=== PATIENT | male | born 1950 | race Caucasian/White ===

== ENCOUNTER 2016-09-08 11:27 | Emergency (ER) | payer MEDICARE, MEDICAID ==
[~2016-09-08] VITALS: Ht 172.7 cm; Wt 53.6 kg
[~2016-09-08 11:27] MED LIST: ADLT ASA LOW81 MG PO; ALBUTEROL S2.5 MG/.5 IN; ALDACTONE25 MG PO; AMOXICILLIN500 MG PO; ATORVASTATIN CA40 MG PO; BACTRIM DS1 TAB PO; CARVEDILOL3.125 MG PO; CEPHALEXIN500 MG PO; DICLOFENAC OR; DOXYCYCL HYC100 MG PO; KLOR-CON M2020 MEQ PO; LASIX 40 MG40 MG/TAB PO; LASIX20 MG PO; LEVOTHYROXIN50 MCG PO; LIPITOR10 M1 PO; LIPITOR40 M1 PO; LISINOPRIL10 MG OR; LISINOPRIL20 M1 PO; LOPRESSOR 550 MG/TAB PO; LORTAB 5-325 MG1 TAB PO; LOSARTAN POT100 MG PO; MICRO-K8 MEQ PO; MULTI VIT PO; NAPROSYN500 MG OR; NAPROSYN500 MG PO; NITROSTAT0.4 MG SL; NO; NO MEDS; SYMBICORT 80-4.5MCG IN; SYMBICORT1 AE1 IN; Symbicort IN; TAMSULOSIN HCL0.4 MG PO; TESSALON PER100 MG PO; ULTRAM50 MG OR; ULTRAM50 MG PO; VENTOLIN HFA IN; ZESTRIL10 M1 PO; ZESTRIL5 M1 PO; ZITHROMAX250 MG PO; ZITHROMAX500 MG PO
[2016-09-08] MEDS ORDERED: AUGMENTIN500TAB PO (14:26)
[2016-09-08 14:42] VITALS: BP 118/70
== END 2016-09-08 14:43 | disposition home or self-care (01) ==
LOC: ED 11:27
DX: S91.351A Open bite, right foot, initial encounter (principal); I11.0 Hypertensive heart disease with heart failure; I50.9 Heart failure, unspecified; I25.10 Atherosclerotic heart disease of native coronary artery without angina pectoris; E03.9 Hypothyroidism, unspecified; I42.9 Cardiomyopathy, unspecified; F17.210 Nicotine dependence, cigarettes, uncomplicated; Z95.5 Presence of coronary angioplasty implant and graft; E78.5 Hyperlipidemia, unspecified; W54.0XXA Bitten by dog, initial encounter; Y93.55 Activity, bike riding

== ENCOUNTER 2017-03-06 09:33 | Emergency (ER) | payer MEDICARE, MEDICAID ==
[~2017-03-06] VITALS: Ht 172.7 cm; Wt 65.0 kg
[~2017-03-06 09:33] MED LIST changes: +AUGMENTIN500TAB PO; +FINASTERIDE5 MG PO
[2017-03-06] MEDS ORDERED: EC-NAPROSYN500 MG PO (09:54)
[2017-03-06] MEDS ORDERED: TRAMADOL HYDROC50 MG PO (09:54)
[2017-03-06] MEDS ORDERED: LOSARTAN POT25 MG PO (10:15)
[2017-03-06] MEDS ORDERED: LASIX 20 MG TAB20 MG PO (10:15)
[2017-03-06] MEDS ORDERED: ATORVASTATIN CA40 MG PO (10:16)
[2017-03-06] MEDS ORDERED: COREG25 MG PO (10:17)
[2017-03-06] MEDS ORDERED: ADLT ASA LOW81 MG PO (10:18)
[2017-03-06 11:15] VITALS: BP 106/66
== END 2017-03-06 11:15 | disposition home or self-care (01) ==
LOC: ED 09:33
DX: M54.32 Sciatica, left side (principal); M79.605 Pain in left leg; M25.552 Pain in left hip; X50.1XXA Overexertion from prolonged static or awkward postures, initial encounter; Y93.89 Activity, other specified; Y92.238 Other place in hospital as the place of occurrence of the external cause

== ENCOUNTER 2017-04-19 15:36 | Emergency (ER) | payer MEDICARE, MEDICAID ==
[~2017-04-19] VITALS: Ht 172.7 cm; Wt 50.0 kg
[~2017-04-19 15:36] MED LIST changes: +COREG25 MG PO; +EC-NAPROSYN500 MG PO; +LASIX 20 MG TAB20 MG PO; +LOSARTAN POT25 MG PO; +TRAMADOL HYDROC50 MG PO
[2017-04-19] MEDS ORDERED: TAMSULOSIN0.4 MG PO (18:03)
[2017-04-19 18:12] LABS: HEMATOCRIT 40.1 % (39.0-50.0); HEMOGLOBIN 13.7 g/dl (14.0-18.0); IMMATURE GRANULOCYTES 0.3 % (0.0-1.0); MEAN CELL VOLUME 95.7 fL CALC (80.0-100.0); MEAN CORPUSCULAR HGB 32.7 pG CALC (26.0-32.0); MEAN CORPUSCULAR HGB CONC 34.2 g/L CALC (32.0-36.0); NEUT# 4.4 thou/uL (1.82-7.42); RED BLOOD COUNT 4.19 mill/uL (4.70-6.10); RED CELL DISTRI WIDTH 12.9 % (11.5-15.5)
[2017-04-19 18:47] LABS: ANION GAP 19 (6-22 (CALC)); BUN 27 mg/dL (8-23); BUN/CREATININE RATIO 23 (12-20 (CALC)); CALCIUM 10.8 mg/dL (8.4-10.2); CARBON DIOXIDE 23 mmol/l (22-30); CHLORIDE 106 mmol/l (95-108); CREATININE 1.2 mg/dL (0.7-1.3); GFR 60 ML/MIN (>=60 (CALC)); GFR FOR AFR.AMER. > 60 ML/MIN (>=60 (CALC)); GLUCOSE 79 mg/dL (82-115); POTASSIUM 4.6 mmol/l (3.5-5.1); SODIUM 143 mmol/l (137-146)
[2017-04-19 21:45] VITALS: BP 114/70
== END 2017-04-19 21:50 | disposition short-term general hospital (02) ==
LOC: ED 15:36
PROVIDERS: Family Medicine
DX: R93.5 Abnormal findings on diagnostic imaging of other abdominal regions, including retroperitoneum (principal); S30.1XXA Contusion of abdominal wall, initial encounter; S40.011A Contusion of right shoulder, initial encounter; S50.11XA Contusion of right forearm, initial encounter; S70.01XA Contusion of right hip, initial encounter; S40.211A Abrasion of right shoulder, initial encounter; S50.811A Abrasion of right forearm, initial encounter; D69.6 Thrombocytopenia, unspecified; V13.4XXA Pedal cycle driver injured in collision with car, pick-up truck or van in traffic accident, initial encounter; Y92.414 Local residential or business street as the place of occurrence of the external cause; Y93.55 Activity, bike riding
CPT/HCPCS: Q9967

== ENCOUNTER 2017-08-22 13:49 | Observation (INO) | payer MEDICARE, MEDICAID ==
[~2017-08-22] VITALS: Ht 172.7 cm; Wt 54.6 kg
[~2017-08-22 13:49] MED LIST changes: +TAMSULOSIN0.4 MG PO
[2017-08-22 14:40] LABS: HEMATOCRIT 36.9 % (39.0-50.0); IMMATURE GRANULOCYTES 0.3 % (0.0-1.0); MEAN CELL VOLUME 98.9 fL CALC (80.0-100.0); MEAN CORPUSCULAR HGB 32.2 pG CALC (26.0-32.0); MEAN CORPUSCULAR HGB CONC 32.5 g/L CALC (32.0-36.0); NEUT# 4.24 thou/uL (1.82-7.42); RED BLOOD COUNT 3.73 mill/uL (4.70-6.10); RED CELL DISTRI WIDTH 13.6 % (11.5-15.5)
[2017-08-22 14:56] LABS: ALBUMIN 3.7 g/dL (3.2-5.0); ALKALINE PHOSPHATASE 113 u/l (38-126); ANION GAP 17 (6-22 (CALC)); BILIRUBIN, TOTAL 1.1 mg/dL (0.0-1.4); BUN 22 mg/dL (8-23); BUN/CREATININE RATIO 23 (12-20 (CALC)); CARBON DIOXIDE 26 mmol/l (22-30); CHLORIDE 106 mmol/l (95-108); GFR > 60 ML/MIN (>=60 (CALC)); GFR FOR AFR.AMER. > 60 ML/MIN (>=60 (CALC)); SGOT/AST 20 u/l (19-48); SGPT/ALT 47 u/l (11-66); SODIUM 144 mmol/l (137-146); TOTAL PROTEIN 6.6 g/dL (6.3-8.2)
[2017-08-22 16:40] LABS: URINE BILIRUBIN - DIPSTICK NEGATIVE (NEGATIVE); URINE BLOOD DIPSTICK TRACE-LYSED (NEGATIVE); URINE COLOR YELLOW; URINE GLUCOSE - DIPSTICK NEGATIVE (NEGATIVE); URINE KETONE NEGATIVE (NEGATIVE); URINE LEUK ESTERASE TRACE (NEGATIVE); URINE PROTEIN - DIPSTICK NEGATIVE (NEG-TRACE); URINE UROBILINOGEN - DIPSTICK 0.2 E.U./dL (0.2)
[2017-08-22 16:41] LABS: URINE CLARITY HAZY; URINE NITRITE - DIPSTICK POSITIVE (Negative)
[2017-08-22 16:50] LABS: URINE BACTERIA RARE hpf; URINE RBC 0-2 RBC/hpf (0-5)
[2017-08-22 18:19] VITALS: BP 124/89
[2017-08-22 22:00] VITALS: BP 121/75
[2017-08-23 06:15] LABS: HEMATOCRIT 36.5 % (39.0-50.0); IMMATURE GRANULOCYTES 0.2 % (0.0-1.0); MEAN CELL VOLUME 97.9 fL CALC (80.0-100.0); MEAN CORPUSCULAR HGB 32.2 pG CALC (26.0-32.0); MEAN CORPUSCULAR HGB CONC 32.9 g/L CALC (32.0-36.0); NEUT# 3.74 thou/uL (1.82-7.42); RED BLOOD COUNT 3.73 mill/uL (4.70-6.10); RED CELL DISTRI WIDTH 13.4 % (11.5-15.5)
[2017-08-23 06:21] LABS: ANION GAP 15 (6-22 (CALC)); BUN 21 mg/dL (8-23); BUN/CREATININE RATIO 23 (12-20 (CALC)); CARBON DIOXIDE 27 mmol/l (22-30); CHLORIDE 104 mmol/l (95-108); CREATININE 0.9 mg/dL (0.7-1.3); GFR > 60 ML/MIN (>=60 (CALC)); GFR FOR AFR.AMER. > 60 ML/MIN (>=60 (CALC)); MAGNESIUM 1.8 mg/dL (1.6-2.3); POTASSIUM 3.7 mmol/l (3.5-5.1); SODIUM 142 mmol/l (137-146)
[2017-08-23 07:10] VITALS: BP 128/78
[2017-08-23 11:42] VITALS: BP 108/62
[2017-08-23 18:08] VITALS: BP 114/66
[2017-08-23 19:35] VITALS: BP 115/64
[2017-08-24 00:35] VITALS: BP 120/62
[2017-08-24 04:35] VITALS: BP 107/73
[2017-08-24 06:21] LABS: HEMATOCRIT 37.1 % (39.0-50.0); HEMOGLOBIN 12.4 g/dl (14.0-18.0); IMMATURE GRANULOCYTES 0.4 % (0.0-1.0); MEAN CELL VOLUME 98.1 fL CALC (80.0-100.0); MEAN CORPUSCULAR HGB 32.8 pG CALC (26.0-32.0); MEAN CORPUSCULAR HGB CONC 33.4 g/L CALC (32.0-36.0); NEUT# 4.77 thou/uL (1.82-7.42); RED BLOOD COUNT 3.78 mill/uL (4.70-6.10); RED CELL DISTRI WIDTH 13.7 % (11.5-15.5)
[2017-08-24 06:44] LABS: ANION GAP 17 (6-22 (CALC)); BUN 25 mg/dL (8-23); BUN/CREATININE RATIO 26 (12-20 (CALC)); CARBON DIOXIDE 27 mmol/l (22-30); CHLORIDE 103 mmol/l (95-108); GFR > 60 ML/MIN (>=60 (CALC)); GFR FOR AFR.AMER. > 60 ML/MIN (>=60 (CALC)); MAGNESIUM 1.9 mg/dL (1.6-2.3); POTASSIUM 4.2 mmol/l (3.5-5.1); SODIUM 142 mmol/l (137-146)
[2017-08-24 07:48] VITALS: BP 118/71
[2017-08-24] MEDS ORDERED: ALDACTONE25 MG PO (10:53)
[2017-08-24] MEDS ORDERED: CIPROFLOXACN500 MG PO (11:19)
[2017-08-24] MEDS ORDERED: FUROSEMIDE20 MG PO (11:25)
[2017-08-24 12:49] VITALS: BP 117/65
[2017-08-24 15:34] VITALS: BP 106/57
== END 2017-08-24 17:15 | disposition home or self-care (01) ==
LOC: ED 13:49 → ED-I 16:30 → ED 16:49 → MS2 16:50
PROVIDERS: Emergency Medicine; Nurse Practitioner Family; ADMIT Internal Medicine; ATTEND Internal Medicine
DX: I11.0 Hypertensive heart disease with heart failure (principal); I50.23 Acute on chronic systolic (congestive) heart failure; I25.10 Atherosclerotic heart disease of native coronary artery without angina pectoris; E03.9 Hypothyroidism, unspecified; E78.5 Hyperlipidemia, unspecified; I25.5 Ischemic cardiomyopathy; J44.9 Chronic obstructive pulmonary disease, unspecified; F17.210 Nicotine dependence, cigarettes, uncomplicated; N39.0 Urinary tract infection, site not specified; Z95.810 Presence of automatic (implantable) cardiac defibrillator; Z95.5 Presence of coronary angioplasty implant and graft

== ENCOUNTER 2017-09-16 11:19 | Emergency (ER) | payer MEDICARE, MEDICAID ==
[~2017-09-16] VITALS: Ht 172.7 cm; Wt 56.6 kg
[~2017-09-16 11:19] MED LIST changes: +CIPROFLOXACN500 MG PO; +FUROSEMIDE20 MG PO
[2017-09-16 11:21] VITALS: BP 124/75
[2017-09-16 13:00] LABS: HEMATOCRIT 34.7 % (39.0-50.0); HEMOGLOBIN 11.4 g/dl (14.0-18.0); IMMATURE GRANULOCYTES 0.3 % (0.0-1.0); MEAN CELL VOLUME 97.7 fL CALC (80.0-100.0); MEAN CORPUSCULAR HGB 32.1 pG CALC (26.0-32.0); MEAN CORPUSCULAR HGB CONC 32.9 g/L CALC (32.0-36.0); NEUT# 4.2 thou/uL (1.82-7.42); RED BLOOD COUNT 3.55 mill/uL (4.70-6.10); RED CELL DISTRI WIDTH 13.6 % (11.5-15.5)
[2017-09-16 13:23] LABS: ALBUMIN 3.8 g/dL (3.2-5.0); ALKALINE PHOSPHATASE 112 u/l (38-126); BILIRUBIN, TOTAL 1.4 mg/dL (0.0-1.4); BUN 22 mg/dL (8-23); BUN/CREATININE RATIO 25 (12-20 (CALC)); CARBON DIOXIDE 26 mmol/l (22-30); CHLORIDE 106 mmol/l (95-108); CREATININE 0.9 mg/dL (0.7-1.3); GFR > 60 ML/MIN (>=60 (CALC)); GFR FOR AFR.AMER. > 60 ML/MIN (>=60 (CALC)); MAGNESIUM 1.9 mg/dL (1.6-2.3); SGOT/AST 21 u/l (19-48); SGPT/ALT 41 u/l (11-66); SODIUM 140 mmol/l (137-146); TOTAL PROTEIN 6.8 g/dL (6.3-8.2)
[2017-09-16 13:24] LABS: ANION GAP 12 (6-22 (CALC)); POTASSIUM 3.8 mmol/l (3.5-5.1)
== END 2017-09-16 14:45 | disposition home or self-care (01) ==
LOC: ED 11:19
DX: M19.022 Primary osteoarthritis, left elbow (principal); M25.521 Pain in right elbow

== ENCOUNTER 2017-09-22 14:23 | Emergency (ER) | payer MEDICARE, MEDICAID ==
[~2017-09-22] VITALS: Ht 172.7 cm; Wt 60.0 kg
[2017-09-22 15:41] LABS: HEMATOCRIT 34.6 % (39.0-50.0); HEMOGLOBIN 11.2 g/dl (14.0-18.0); IMMATURE GRANULOCYTES 0.3 % (0.0-1.0); MEAN CELL VOLUME 98.9 fL CALC (80.0-100.0); MEAN CORPUSCULAR HGB CONC 32.4 g/L CALC (32.0-36.0); NEUT# 4.1 thou/uL (1.82-7.42); RED BLOOD COUNT 3.5 mill/uL (4.70-6.10); RED CELL DISTRI WIDTH 14.2 % (11.5-15.5)
[2017-09-22 15:55] LABS: ANION GAP 9 (6-22 (CALC)); BUN 20 mg/dL (8-23); BUN/CREATININE RATIO 19 (12-20 (CALC)); CARBON DIOXIDE 26 mmol/l (22-30); CHLORIDE 109 mmol/l (95-108); GFR > 60 ML/MIN (>=60 (CALC)); GFR FOR AFR.AMER. > 60 ML/MIN (>=60 (CALC)); SODIUM 140 mmol/l (137-146)
[2017-09-22] MEDS ORDERED: LASIX 20 MG TAB20 MG PO (16:37)
[2017-09-22] MEDS ORDERED: K-TAB20 MEQ PO (16:39)
[2017-09-22 17:00] VITALS: BP 122/75
== END 2017-09-22 17:01 | disposition home or self-care (01) ==
LOC: ED 14:23
PROVIDERS: Family Medicine
DX: I11.0 Hypertensive heart disease with heart failure (principal); I50.9 Heart failure, unspecified; I25.10 Atherosclerotic heart disease of native coronary artery without angina pectoris; E03.9 Hypothyroidism, unspecified; E78.5 Hyperlipidemia, unspecified; F17.210 Nicotine dependence, cigarettes, uncomplicated; Z95.0 Presence of cardiac pacemaker; Z95.5 Presence of coronary angioplasty implant and graft

== ENCOUNTER 2017-10-15 08:59 | Emergency (ER) | payer MEDICARE, MEDICAID ==
[~2017-10-15] VITALS: Ht 172.7 cm; Wt 61.0 kg
[~2017-10-15 08:59] MED LIST changes: +K-TAB20 MEQ PO
[2017-10-15] MEDS ORDERED: CEPHALEXIN500 M1 PO (09:25)
[2017-10-15] MEDS ORDERED: BACTRIM DS1 TAB PO (09:25)
[2017-10-15 09:47] VITALS: BP 118/64
== END 2017-10-15 09:47 | disposition home or self-care (01) ==
LOC: ED 08:59
PROC: 0H9MXZZ Drainage of Right Foot Skin, External Approach (ICD-10-PCS; principal; 2017-10-15)
DX: L02.611 Cutaneous abscess of right foot (principal); I11.0 Hypertensive heart disease with heart failure; I50.9 Heart failure, unspecified; I25.10 Atherosclerotic heart disease of native coronary artery without angina pectoris; E03.9 Hypothyroidism, unspecified; E78.5 Hyperlipidemia, unspecified; F17.210 Nicotine dependence, cigarettes, uncomplicated; Z95.5 Presence of coronary angioplasty implant and graft; Z95.0 Presence of cardiac pacemaker; B95.61 Methicillin susceptible Staphylococcus aureus infection as the cause of diseases classified elsewhere

== ENCOUNTER 2017-10-21 14:44 | Emergency (ER) | payer MEDICARE, MEDICAID ==
[~2017-10-21] VITALS: Ht 172.7 cm; Wt 56.2 kg
[~2017-10-21 14:44] MED LIST changes: +CEPHALEXIN500 M1 PO
[2017-10-21 15:56] VITALS: BP 101/63
== END 2017-10-21 16:03 | disposition home or self-care (01) ==
LOC: ED 14:44
DX: S39.011A Strain of muscle, fascia and tendon of abdomen, initial encounter (principal); J06.9 Acute upper respiratory infection, unspecified; M25.551 Pain in right hip; R53.1 Weakness; R05 Cough

== ENCOUNTER 2017-12-19 23:25 | Emergency (ER) | payer MEDICARE, MEDICAID ==
[~2017-12-19] VITALS: Ht 172.7 cm; Wt 54.5 kg
[~2017-12-19 23:25] MED LIST changes: +ENTRESTO 24-261 TAB PO
--- NOTE | 2017-12-19 23:58 | NUR ---
BREATHING TREATMENT GIVEN USING A FACE MASK. BREATHING TECH. FOR GOOD DEPOSITION TO THE LUNGS.
[2017-12-20 00:05] LABS: HEMATOCRIT 39.4 % (39.0-50.0); HEMOGLOBIN 12.7 g/dl (14.0-18.0); IMMATURE GRANULOCYTES 0.3 % (0.0-5.0); MEAN CELL VOLUME 100.5 fL CALC (80.0-100.0); MEAN CORPUSCULAR HGB 32.4 pG CALC (26.0-32.0); MEAN CORPUSCULAR HGB CONC 32.2 g/L CALC (32.0-36.0); NEUT# 6.06 thou/uL (1.82-7.42); RED BLOOD COUNT 3.92 mill/uL (4.70-6.10)
[2017-12-20] MEDS ORDERED: VENTOLIN HFA IN ×2 (00:30→11:17)
[2017-12-20] MEDS ORDERED: SYMBICORT1 AE1 IN ×2 (00:30→11:17)
[2017-12-20 07:24] VITALS: BP 157/84
[2017-12-21] MEDS ORDERED: PREDNISONE10 MG PO (19:08)
[2017-12-21] MEDS ORDERED: VENTOLIN HFA IN (19:08)
== END 2017-12-20 07:23 | disposition home or self-care (01) ==
LOC: ED 23:25
PROVIDERS: Family Medicine
DX: J44.1 Chronic obstructive pulmonary disease with (acute) exacerbation (principal); I11.0 Hypertensive heart disease with heart failure; I50.9 Heart failure, unspecified; I25.10 Atherosclerotic heart disease of native coronary artery without angina pectoris; E78.5 Hyperlipidemia, unspecified; G40.909 Epilepsy, unspecified, not intractable, without status epilepticus; Z95.5 Presence of coronary angioplasty implant and graft; Z95.0 Presence of cardiac pacemaker; Z86.73 Personal history of transient ischemic attack (TIA), and cerebral infarction without residual deficits; Z87.891 Personal history of nicotine dependence

== ENCOUNTER 2017-12-21 18:39 | Emergency (ER) | payer MEDICARE, MEDICAID ==
[~2017-12-21] VITALS: Ht 172.7 cm; Wt 54.0 kg
[2017-12-21] MEDS ORDERED: VENTOLIN HFA IN (19:08)
[2017-12-21] MEDS ORDERED: PREDNISONE10 MG PO (19:08)
[2017-12-21 19:19] VITALS: BP 120/84
== END 2017-12-21 19:20 | disposition home or self-care (01) ==
LOC: ED 18:39
DX: J44.1 Chronic obstructive pulmonary disease with (acute) exacerbation (principal); I11.0 Hypertensive heart disease with heart failure; I50.9 Heart failure, unspecified; I25.10 Atherosclerotic heart disease of native coronary artery without angina pectoris; E78.5 Hyperlipidemia, unspecified; G40.909 Epilepsy, unspecified, not intractable, without status epilepticus; E03.9 Hypothyroidism, unspecified; F17.210 Nicotine dependence, cigarettes, uncomplicated; Z95.5 Presence of coronary angioplasty implant and graft; Z95.0 Presence of cardiac pacemaker; Z86.73 Personal history of transient ischemic attack (TIA), and cerebral infarction without residual deficits

== ENCOUNTER 2018-01-20 11:28 | Emergency (ER) | payer MEDICARE, MEDICAID ==
[~2018-01-20] VITALS: Ht 172.7 cm; Wt 45.5 kg
[~2018-01-20 11:28] MED LIST changes: -FINASTERIDE5 MG PO; +PREDNISONE10 MG PO
[2018-01-20] MEDS ORDERED: AUGMENTIN875TAB PO (12:35)
[2018-01-20 12:50] VITALS: BP 98/63
[2018-01-20] MEDS ORDERED: ATORVASTATIN CA40 MG PO (12:51)
[2018-01-20] MEDS ORDERED: LASIX 40 MG TAB40 MG PO (12:52)
[2018-01-20] MEDS ORDERED: LOSARTAN POT25 MG PO (12:52)
[2018-01-20] MEDS ORDERED: FINASTERIDE5 MG PO (12:54)
[2018-01-20] MEDS ORDERED: WARFARIN3 MG PO (12:54)
== END 2018-01-20 12:50 | disposition home or self-care (01) ==
LOC: ED 11:28
DX: S61.452A Open bite of left hand, initial encounter (principal); L08.9 Local infection of the skin and subcutaneous tissue, unspecified; I11.0 Hypertensive heart disease with heart failure; I50.9 Heart failure, unspecified; I25.10 Atherosclerotic heart disease of native coronary artery without angina pectoris; E78.5 Hyperlipidemia, unspecified; E03.9 Hypothyroidism, unspecified; G40.909 Epilepsy, unspecified, not intractable, without status epilepticus; Z86.73 Personal history of transient ischemic attack (TIA), and cerebral infarction without residual deficits; Z95.5 Presence of coronary angioplasty implant and graft; Z95.0 Presence of cardiac pacemaker; F17.210 Nicotine dependence, cigarettes, uncomplicated; W54.0XXA Bitten by dog, initial encounter; Y93.89 Activity, other specified; Y92.009 Unspecified place in unspecified non-institutional (private) residence as the place of occurrence of the external cause

== ENCOUNTER 2018-03-30 08:48 | Emergency (ER) | payer MEDICARE, MEDICAID ==
[~2018-03-30] VITALS: Ht 172.7 cm; Wt 54.5 kg
[~2018-03-30 08:48] MED LIST changes: +AUGMENTIN875TAB PO; +FINASTERIDE5 MG PO; +LASIX 40 MG TAB40 MG PO; +WARFARIN3 MG PO
[2018-03-30 09:58] VITALS: BP 116/67
== END 2018-03-30 10:07 | disposition home or self-care (01) ==
LOC: ED 08:48
DX: S01.81XD Laceration without foreign body of other part of head, subsequent encounter (principal); X58.XXXD Exposure to other specified factors, subsequent encounter; I11.0 Hypertensive heart disease with heart failure; I50.9 Heart failure, unspecified; I25.10 Atherosclerotic heart disease of native coronary artery without angina pectoris; E78.5 Hyperlipidemia, unspecified; E03.9 Hypothyroidism, unspecified; F17.210 Nicotine dependence, cigarettes, uncomplicated; Z95.5 Presence of coronary angioplasty implant and graft; Z95.0 Presence of cardiac pacemaker; Z86.73 Personal history of transient ischemic attack (TIA), and cerebral infarction without residual deficits

== ENCOUNTER 2018-04-02 09:55 | Emergency (ER) | payer MEDICARE, MEDICAID ==
[~2018-04-02] VITALS: Ht 172.7 cm; Wt 55.0 kg
[2018-04-02 10:50] VITALS: BP 118/76
== END 2018-04-02 10:55 | disposition home or self-care (01) ==
LOC: ED 09:55
DX: S01.111D Laceration without foreign body of right eyelid and periocular area, subsequent encounter (principal); I11.0 Hypertensive heart disease with heart failure; I50.9 Heart failure, unspecified; I25.10 Atherosclerotic heart disease of native coronary artery without angina pectoris; G40.909 Epilepsy, unspecified, not intractable, without status epilepticus; E78.5 Hyperlipidemia, unspecified; E03.9 Hypothyroidism, unspecified; F17.210 Nicotine dependence, cigarettes, uncomplicated; X58.XXXD Exposure to other specified factors, subsequent encounter; Z95.5 Presence of coronary angioplasty implant and graft; Z86.73 Personal history of transient ischemic attack (TIA), and cerebral infarction without residual deficits; Z95.0 Presence of cardiac pacemaker

== ENCOUNTER 2018-04-08 12:28 | Emergency (ER) | payer MEDICARE, MEDICAID ==
[~2018-04-08] VITALS: Ht 172.7 cm; Wt 60.0 kg
[2018-04-08] MEDS ORDERED: COREG12.5 MG PO (12:36)
[2018-04-08 12:40] VITALS: BP 104/63
== END 2018-04-08 12:50 | disposition home or self-care (01) ==
LOC: ED 12:28
DX: S01.81XD Laceration without foreign body of other part of head, subsequent encounter (principal)

== ENCOUNTER 2018-08-15 12:17 | Observation (INO) | payer MEDICARE ==
[~2018-08-15] VITALS: Ht 172.7 cm; Wt 52.0 kg
[~2018-08-15 12:17] MED LIST changes: +COREG12.5 MG PO
--- NOTE | 2018-08-15 12:20 | NUR ---
TO TX ROOM VIA W/C
[2018-08-15 12:53] LABS: HEMATOCRIT 36.4 % (39.0-50.0); HEMOGLOBIN 11.9 g/dl (14.0-18.0); IMMATURE GRANULOCYTES 0.4 % (0.0-5.0); MEAN CELL VOLUME 99.5 fL CALC (80.0-100.0); MEAN CORPUSCULAR HGB 32.5 pG CALC (26.0-32.0); MEAN CORPUSCULAR HGB CONC 32.7 g/L CALC (32.0-36.0); NEUT# 4.66 thou/uL (1.82-7.42); RED BLOOD COUNT 3.66 mill/uL (4.70-6.10); RED CELL DISTRI WIDTH 13.7 % (11.5-15.5)
[2018-08-15] MEDS ORDERED: LASIX 40 MG40 MG/TAB PO (13:07)
[2018-08-15] MEDS ORDERED: ENTRESTO 24-261 TAB PO (13:09)
[2018-08-15] MEDS ORDERED: PROSCAR5 MG PO (13:10)
[2018-08-15] MEDS ORDERED: METOPROLOL SUCC25 MG PO (13:11)
[2018-08-15] MEDS ORDERED: LIPITOR40 M1 PO (13:11)
[2018-08-15] MEDS ORDERED: COUMADIN5 MG PO (13:12)
[2018-08-15 13:13] LABS: ALBUMIN 4.1 g/dL (3.2-5.0); ALKALINE PHOSPHATASE 112 u/l (38-126); ANION GAP 12 (6-22 (CALC)); BILIRUBIN, TOTAL 1.3 mg/dL (0.0-1.4); BUN 20 mg/dL (8-23); BUN/CREATININE RATIO 18 (12-20 (CALC)); CARBON DIOXIDE 25 mmol/l (22-30); CHLORIDE 106 mmol/l (95-108); CREATININE 1.1 mg/dL (0.7-1.3); GFR > 60 ML/MIN (>=60 (CALC)); GFR FOR AFR.AMER. > 60 ML/MIN (>=60 (CALC)); POTASSIUM 3.7 mmol/l (3.5-5.1); SGOT/AST 23 u/l (19-48); SODIUM 140 mmol/l (137-146); TOTAL PROTEIN 6.7 g/dL (6.3-8.2)
--- NOTE | 2018-08-15 13:32 | NUR ---
PT RESTING ON STRECTHER, STATES WEAKNESS AND WEIGHTLOSS FOR LAST FEW DAYS, TAKING MEDICATIONS PRESCRIBED EXCEPT THE FEW THAT HE IS OUT OF AND ARE WAITING AT THE PHARMACY FOR HIME (BUT HE HASN'T HAD THE MONEY FOR THEM) SPOKE WITH PT REGARDING THE IMPORTANCE OF TAKING MEDICATIONS PRESCRIBED AND PRIORTIZING FINANCES PT IS ADMITTED SMOKER, PT STATES HIS COMES FIRST.
--- NOTE | 2018-08-15 14:18 | NUR ---
PT DOZING ON STRECTHER, NO S/S OF DISTRESS OR DISCOMFORT NOTED.
[2018-08-15 14:54] LABS: INTERNATIONAL NORMALIZED RATIO 2.7 RATIO (0.7-1.3); PROTHROMBIN TIME 27.8 SECONDS (9.0-12.5)
--- NOTE | 2018-08-15 16:08 | NUR ---
REQUESTED SANDWICH FROM DIETARY FOR PT
--- NOTE | 2018-08-15 16:39 | NUR ---
TOLERATED TURKEY SANDWICH WELL, STANDING BESIDE STRETCHER ATTEMTPING TO URINATE, ALL VELEZ WITHIN REACH.
--- NOTE | 2018-08-15 16:50 | NUR ---
PT TO BE ADMITTED PER .
--- NOTE | 2018-08-15 18:38 | NUR ---
REPORT CALLED TO [facility]
[2018-08-15 18:45] VITALS: BP 126/75
--- NOTE | 2018-08-15 18:45 | NUR ---
PT TRANSFERED TO MED SURG VIA STRETCHER, TELE SENT WITH PT
--- NOTE | 2018-08-15 18:45 | NUR ---
PT TRANSFERED FROM ER BY [facility] AND [facility] VIA STRETCHER. PT ALERT AND ORIENTED. NO S/S OF DISTRESS NOTED. RESPIRATIONS EVEN AND UNLABORED. PT AMBULATED WITH ASSIST FROM STRETCHER TO BED. PT DENIES ANY PAIN OR DISCOMFORT. IV SITE APPEARS HEALTHY. TIME CHECKER IN PLACE. DISCUSSED POC AND SAFETY PRECAUTIONS. ORIENTED TO ROOM AND CALL LIGHT SYSTEM. CALL WITHIN REACH AND BED IN LOWEST POSITION. WILL CONTINUE TO MONITOR.
--- NOTE | 2018-08-15 21:57 | NUR ---
NETWORKING ADMINISTRATOR SPOKE WITH ENT SURGEON PHYSICIAN AT THIS TIME REGARDING ORDERED MEDICATIONS AND PT BP BEING LOW. GIVE ALL MEDS EXCEPT TOPROL AT THIS TIME PER DR. NY.
--- NOTE | 2018-08-15 22:05 | NUR ---
PT RESTING IN BED WITH EYES CLOSED. NO S/S OF DISTRESS NOTED. CALL LIGHT WITHIN REACH. WILL CONTINUE TO MONITOR.
[2018-08-16] VITALS: BP 97/59
--- NOTE | 2018-08-16 02:23 | NUR ---
PT RESTING IN BED WITH EYES CLOSED. NO S/S OF DISTRESS NOTED. CALL LIGHT WITHIN REACH. WILL CONTINUE TO MONITOR.
--- NOTE | 2018-08-16 04:25 | NUR ---
URINE SAMPLE OBTAINED AND SENT TO LAB AT THIS TIME.
[2018-08-16 04:44] VITALS: BP 113/72
[2018-08-16 05:11] LABS: URINE BILIRUBIN - DIPSTICK NEGATIVE (NEGATIVE); URINE BLOOD DIPSTICK NEGATIVE (NEGATIVE); URINE COLOR YELLOW; URINE GLUCOSE - DIPSTICK NEGATIVE (NEGATIVE); URINE KETONE NEGATIVE (NEGATIVE); URINE LEUK ESTERASE NEGATIVE (NEGATIVE); URINE NITRITE - DIPSTICK NEGATIVE (Negative); URINE PROTEIN - DIPSTICK NEGATIVE (NEG-TRACE); URINE SPECIFIC GRAVITY 1.015; URINE UROBILINOGEN - DIPSTICK 0.2 E.U./dL (0.2)
[2018-08-16 05:32] LABS: HEMATOCRIT 34.9 % (39.0-50.0); HEMOGLOBIN 11.4 g/dl (14.0-18.0); MEAN CELL VOLUME 99.1 fL CALC (80.0-100.0); MEAN CORPUSCULAR HGB 32.4 pG CALC (26.0-32.0); MEAN CORPUSCULAR HGB CONC 32.7 g/L CALC (32.0-36.0); RED BLOOD COUNT 3.52 mill/uL (4.70-6.10); RED CELL DISTRI WIDTH 13.8 % (11.5-15.5)
[2018-08-16 06:00] LABS: ANION GAP 11 (6-22 (CALC)); BUN 23 mg/dL (8-23); BUN/CREATININE RATIO 24 (12-20 (CALC)); CALCULATED LDLCHOLESTEROL 66 mg/dL (62-129 (CALC)); CARBON DIOXIDE 25 mmol/l (22-30); CHLORIDE 106 mmol/l (95-108); CHOLESTEROL HDL RATIO 3.2 (<4.4 (CALC)); GFR > 60 ML/MIN (>=60 (CALC)); GFR FOR AFR.AMER. > 60 ML/MIN (>=60 (CALC)); HDL CHOLESTEROL 40 mg/dL (>=40); POTASSIUM 3.8 mmol/l (3.5-5.1); SODIUM 138 mmol/l (137-146); TOTAL CHOLESTEROL 127 mg/dl (0-199); TOTAL TRIGLYCERIDES 109 mg/dl (30-149); VLDL CHOLESTROL 22 mg/dl (4-45 (CALC))
[2018-08-16 07:48] VITALS: BP 117/75
--- NOTE | 2018-08-16 08:00 | NUR ---
ASSESSMENT DONE. PT IS A&O X3. TELE IN PLACE. PT DENIES PAIN AT THIS TIME. SAFETY PRECAUTIONS REINFROCED AND CALL LIGHT IN REACH.
[2018-08-16 11:30] VITALS: BP 95/65
--- NOTE | 2018-08-16 12:00 | NUR ---
PT IS EATING HIS LUNCH WITH NO S/S OF DISTRESS NOTED. PT DENIES NEEDS AT THIS TIME. CALL LIGHT IN REACH.
--- NOTE | 2018-08-16 15:26 | NUR ---
PT RESTING IN BED WITH NO S/S OF DISTRESS NOTED. PT DENIES NEEDS AT THIS TIME. CALL LIGHT IN REACH.
[2018-08-16 15:55] VITALS: BP 96/63
[2018-08-16 19:58] VITALS: BP 97/60
[2018-08-17] VITALS (7 sets, daily range): BP systolic 97–145; BP diastolic 60–89
[2018-08-17 05:34] LABS: HEMATOCRIT 36.5 % (39.0-50.0); HEMOGLOBIN 11.9 g/dl (14.0-18.0); IMMATURE GRANULOCYTES 0.4 % (0.0-5.0); MEAN CELL VOLUME 99.2 fL CALC (80.0-100.0); MEAN CORPUSCULAR HGB 32.3 pG CALC (26.0-32.0); MEAN CORPUSCULAR HGB CONC 32.6 g/L CALC (32.0-36.0); NEUT# 5.25 thou/uL (1.82-7.42); RED BLOOD COUNT 3.68 mill/uL (4.70-6.10); RED CELL DISTRI WIDTH 13.8 % (11.5-15.5)
[2018-08-17 05:42] LABS: ANION GAP 11 (6-22 (CALC)); BUN 23 mg/dL (8-23); BUN/CREATININE RATIO 24 (12-20 (CALC)); CARBON DIOXIDE 24 mmol/l (22-30); CHLORIDE 107 mmol/l (95-108); GFR > 60 ML/MIN (>=60 (CALC)); GFR FOR AFR.AMER. > 60 ML/MIN (>=60 (CALC)); POTASSIUM 4.1 mmol/l (3.5-5.1); SODIUM 139 mmol/l (137-146)
[2018-08-17 05:53] LABS: INTERNATIONAL NORMALIZED RATIO 2.6 RATIO (0.7-1.3); PROTHROMBIN TIME 26.6 SECONDS (9.0-12.5)
--- NOTE | 2018-08-17 07:00 | NUR ---
RECIEVED REPORT FROM SURGERY AID. ASSUMED PT CARE.
--- NOTE | 2018-08-17 07:45 | NUR ---
PT RESTING IN BED, ASSESSMENT COMPLETED, PT CONTINUES ON TELEMETRY VIA ED. SEIZURE PRECAUTIONS IN PLACE, NO SEIZURE ACTIVITY NOTED AT THIS TIME. PT OFFERS NO COMPLAINTS AT THIS TIME. CALL LIGHT IN REACH. WILL MONITOR.
--- NOTE | 2018-08-17 09:30 | NUR ---
LORRI HENSON AT BEDSIDE. NEW ORDERS RECIEVED
--- NOTE | 2018-08-17 12:30 | NUR ---
DR. NY AT BEDSIDE FOR ASSESSMENT AND TO DISCUSS PLAN OF CARE. NEW ORDERS RECIEVED
--- NOTE | 2018-08-17 12:35 | NUR ---
BLADDER SCAN COMPLETED, >999ML ON SCAN. 16FR SULLVIAN CATHETER INSERTED USING STERILE TECHNIQUE, 10ML BALLOON INFLATED. PT TOLERATED WELL. IMMEDIATE RETURN OF URINE NOTED DRAINING TO GRAVITY AT BSD. CALL LIGHT IN REACH, WILL MONITOR.
--- NOTE | 2018-08-17 16:30 | NUR ---
PT RESTING INBED WITH EYES CLOSED. RESPIRATIONS EVEN/UNLABORED. NATE REMAINS PATENT TO BSD, CLEAR DARK YELLOW URINE NOTED. CALL LIGHT IN REACH, WILL MONITOR.
--- NOTE | 2018-08-17 19:00 | NUR ---
RECEIVED REPORT FROM NURSE СВЕТЛАНА PATIENT RESTING IN BED,DENIES PAIN OR DISCOMFORTS AT THIS TIME, WITH SULLIVAN DRAINING CLEAR YELLOW URINE, FR 16, CALL LIGHT AT REACH
--- NOTE | 2018-08-17 20:00 | NUR ---
PATIENT ALERT ORIENTED, CURRENTLY SITTING IN BED, REMAINS ON SEIZURE PRECATION, WITH SALINE LOCK ON RAC G18, PATENT FLUSHES WELL, ON TELE MONITOR PACED 65, WITH SULLIVAN CATHETER F16 PATENT AND DRAINING CLEAR YELLOW URINE, DENIES PAIN OR DISCOMFORT EVEN UNLABORED BREATHING CALL LIGHT AT REACH.
--- NOTE | 2018-08-18 | NUR ---
PATIENT APPEARS TO BE RESTING WITH EYES CLOSED, NO DISCOMFORTS AT THIS TIME, EVEN UNLABORED BREATHING CALL LIGHT AT REACH.
[2018-08-18 04:50] VITALS: BP 106/69
--- NOTE | 2018-08-18 05:00 | NUR ---
PATIENT APPEARS TO BE RESTING, EYES CLOSED, WITH EVEN UNLABORED BREATHING CALL LIGHT AT REACH.
[2018-08-18 05:32] LABS: HEMATOCRIT 32.8 % (39.0-50.0); HEMOGLOBIN 10.7 g/dl (14.0-18.0); IMMATURE GRANULOCYTES 0.3 % (0.0-5.0); MEAN CELL VOLUME 97.6 fL CALC (80.0-100.0); MEAN CORPUSCULAR HGB 31.8 pG CALC (26.0-32.0); MEAN CORPUSCULAR HGB CONC 32.6 g/L CALC (32.0-36.0); NEUT# 4.61 thou/uL (1.82-7.42); RED BLOOD COUNT 3.36 mill/uL (4.70-6.10); RED CELL DISTRI WIDTH 13.8 % (11.5-15.5)
[2018-08-18 05:57] LABS: INTERNATIONAL NORMALIZED RATIO 1.8 RATIO (0.7-1.3)
[2018-08-18 05:58] LABS: ANION GAP 10 (6-22 (CALC)); BUN 25 mg/dL (8-23); BUN/CREATININE RATIO 24 (12-20 (CALC)); CARBON DIOXIDE 24 mmol/l (22-30); CHLORIDE 105 mmol/l (95-108); CREATININE 1.1 mg/dL (0.7-1.3); GFR > 60 ML/MIN (>=60 (CALC)); GFR FOR AFR.AMER. > 60 ML/MIN (>=60 (CALC)); POTASSIUM 3.8 mmol/l (3.5-5.1); SODIUM 136 mmol/l (137-146)
[2018-08-18 07:40] VITALS: BP 102/70
--- NOTE | 2018-08-18 08:00 | NUR ---
ASSESSMENT DONE. PT IS A&O X3. TELE IN PLACE. PT DENIES PAIN AT THIS TIME. RESPS EVEN AND UNLABORED. PT DENIES NEEDS AT THIS TIME. NATE IS PATENT WITH YELLOW URINE. CALL LIGHT IN REACH.
--- NOTE | 2018-08-18 08:39 | NUR ---
I spoke with Sridevi from office @[phone] to verfiy the consultation for Replaced By [facility]. She stated that she would notify Dr. Chawla today about the consultation.
--- NOTE | 2018-08-18 12:00 | NUR ---
PT IS EATING HIS LUNCH WITH NO S/S OF DISTRESS NOTED. CALL LIGHT IN REACH.
[2018-08-18] MEDS ORDERED: AMIODARONE200 MG PO (15:18)
--- NOTE | 2018-08-18 16:00 | NUR ---
REMOVED PT SULLIVAN AND PT TOLERATED WELL. PT DENIES PAIN OR NEEDS AT THIS TIME. CALL LIGHT IN REACH.
[2018-08-18 16:07] VITALS: BP 91/54
--- NOTE | 2018-08-18 19:35 | NUR ---
Patient hasn't voided at this time, gill out time was 4pm, bladder scan done 129ml. Called DR. NY ABOUT NOT VOIDING, AND ORDERED TO DO ANOTHER BLADDER SCAN 12 AM. PATIENT MAY STAY FOR TONIGHT AND CONTINUE MONITORING.
[2018-08-18 20:20] VITALS: BP 96/59
--- NOTE | 2018-08-18 23:33 | NUR ---
Repeated bladder scan 230ml, patient stated he does not want the gill catheter back. Dr crandall made aware. Patient has not voided since the removal of the gill catheter at 4pm.
--- NOTE | 2018-08-18 23:52 | NUR ---
DR. NY ORDERED TO PUT THE SULLIVAN CATHETER BACK, PATIENT REFUSES TO REINSERT SULLIVAN CATHETER AT THIS TIME, WILL CONTINUE TO MONITOR. AND WILL REPEAT BLADDER SCAN
[2018-08-18 23:57] VITALS: BP 100/62
[2018-08-19 04:40] VITALS: BP 104/65
--- NOTE | 2018-08-19 05:00 | NUR ---
PATIENT VOIDED ONLY 100 CC CORY COLOR URINE, REPEAT BLADDER SCAN 401 ML, PATIENT STILL KEEP REFUSING SULLIVAN REINSERTION. WILL CONTINUE TO MONITOR.
[2018-08-19 07:50] VITALS: BP 107/71
--- NOTE | 2018-08-19 08:04 | NUR ---
ASSESSMENT DONE. TELE IN PLACE. PT IS A&O X3. PT DENIES PAIN. PT STATED READY TO GO HOME. PT DENIES ANY OTHER NEEDS AT THIS TIME. CALL LIGHT IN REACH.
--- NOTE | 2018-08-19 08:24 | NUR ---
NOTIFIED DR. NY THAT PT IS REFUSING SULLIVAN. PT VOID 100ML. BLADDER SCAN PT 404ML OF URINE NOTED. STATED HE CAN BE D/C TODAY BUT TO FOLLOW UP WITH BLAYNE.
[2018-08-19] MEDS ORDERED: TAMSULOSIN HCL0.4 MG PO (08:27)
[2018-08-19 11:00] VITALS: BP 99/60
--- NOTE | 2018-08-19 11:49 | NUR ---
PT IS EATING HIS LUNCH WITH NO S/S OF DISTRESS NOTED. PT AWAITING TO BE D/C CALL LIGHT IN REACH.
--- NOTE | 2018-08-19 14:00 | NUR ---
Discharge instructions given. Patient verbalizes understanding of same. Discharged in stable condition via Wheelchair to Home with staff. All belongings sent with pt. TOLD PT THAT HE HAS APPOINTMENT WITH DR. CISNEROS 08/29 AT 11:30.
== END 2018-08-19 14:00 | disposition home or self-care (01) ==
LOC: ED 12:17 → ED-I 16:30 → ED 16:56 → MS2 16:57
PROVIDERS: Emergency Medicine; Nurse Practitioner Family; ADMIT Internal Medicine; ATTEND Internal Medicine
PROC: 0T9B70Z Drainage of Bladder with Drainage Device, Via Natural or Artificial Opening (ICD-10-PCS; principal; 2018-08-17)
DX: I47.2 Ventricular tachycardia (principal); I11.0 Hypertensive heart disease with heart failure; I50.23 Acute on chronic systolic (congestive) heart failure; I25.10 Atherosclerotic heart disease of native coronary artery without angina pectoris; I25.5 Ischemic cardiomyopathy; I42.8 Other cardiomyopathies; J44.9 Chronic obstructive pulmonary disease, unspecified; N40.1 Benign prostatic hyperplasia with lower urinary tract symptoms; R33.8 Other retention of urine; G40.909 Epilepsy, unspecified, not intractable, without status epilepticus; E78.5 Hyperlipidemia, unspecified; E03.9 Hypothyroidism, unspecified; R63.4 Abnormal weight loss; F17.200 Nicotine dependence, unspecified, uncomplicated; Z86.73 Personal history of transient ischemic attack (TIA), and cerebral infarction without residual deficits; Z95.5 Presence of coronary angioplasty implant and graft; Z95.810 Presence of automatic (implantable) cardiac defibrillator; Z68.1 Body mass index [BMI] 19.9 or less, adult; Z79.899 Other long term (current) drug therapy; T50.996A Underdosing of other drugs, medicaments and biological substances, initial encounter; T46.5X6A Underdosing of other antihypertensive drugs, initial encounter; Z91.120 Patient's intentional underdosing of medication regimen due to financial hardship; Z79.01 Long term (current) use of anticoagulants; R53.1 Weakness; R63.0 Anorexia; R06.02 Shortness of breath

== ENCOUNTER 2018-09-23 12:24 | Emergency (ER) | payer MEDICARE ==
[~2018-09-23] VITALS: Ht 172.7 cm; Wt 50.0 kg
[~2018-09-23 12:24] MED LIST changes: +AMIODARONE200 MG PO; +COUMADIN5 MG PO; +METOPROLOL SUCC25 MG PO; +PROSCAR5 MG PO
[2018-09-23] MEDS ORDERED: AMIODARONE HCL200 MG PO (13:02)
[2018-09-23] MEDS ORDERED: ATORVASTATIN CA40 MG PO (13:04)
[2018-09-23] MEDS ORDERED: METO25TAB PO (13:04)
[2018-09-23] MEDS ORDERED: TORADOL PO (14:26)
[2018-09-23 15:00] VITALS: BP 98/59
== END 2018-09-23 15:00 | disposition home or self-care (01) ==
LOC: ED 12:24
DX: S93.401A Sprain of unspecified ligament of right ankle, initial encounter (principal); S90.861A Insect bite (nonvenomous), right foot, initial encounter; X50.1XXA Overexertion from prolonged static or awkward postures, initial encounter; Y92.009 Unspecified place in unspecified non-institutional (private) residence as the place of occurrence of the external cause; M25.571 Pain in right ankle and joints of right foot; M25.471 Effusion, right ankle; X50.1XXD Overexertion from prolonged static or awkward postures, subsequent encounter

== ENCOUNTER 2018-09-23 20:03 | Emergency (ER) | payer MEDICARE ==
[~2018-09-23] VITALS: Ht 172.7 cm; Wt 50.0 kg
[~2018-09-23 20:03] MED LIST changes: +AMIODARONE HCL200 MG PO; +METO25TAB PO; +TORADOL PO
[2018-09-23 21:35] VITALS: BP 98/56
== END 2018-09-23 21:35 | disposition home or self-care (01) ==
LOC: ED 20:03
DX: M25.571 Pain in right ankle and joints of right foot (principal); M25.471 Effusion, right ankle; X50.1XXD Overexertion from prolonged static or awkward postures, subsequent encounter; Y92.009 Unspecified place in unspecified non-institutional (private) residence as the place of occurrence of the external cause

== ENCOUNTER 2018-09-29 14:24 | Inpatient (IN) | payer MEDICARE ==
[~2018-09-29] VITALS: Ht 172.7 cm; Wt 55.1 kg
--- NOTE | 2018-09-29 14:32 | NUR ---
PT TO ROOM W/STEADY GAIT WEARS MOONBOOT ON LEFT FOOT.
--- NOTE | 2018-09-29 14:35 | NUR ---
Advised triage nurse of higher acuity pt. States this pt has to go to room # 2 at this time d/t critical pt in room # 11.
--- NOTE | 2018-09-29 14:59 | NUR ---
PATIENT AMBULATES TO ROOM WITH SLOW STEADY GAIT.
[2018-09-29] MEDS ORDERED: METOPROL TAR25 MG PO (15:20)
--- NOTE | 2018-09-29 15:21 | NUR ---
PATIENT UNABLE TO VERIFY COMPLETE LIST OF HOME MEDS. PHARMACY CONSULT ORDERED.
--- NOTE | 2018-09-29 15:25 | NUR ---
PATIENT HAS HEALING WOUNDS TO BILATERAL UPPER EXTREMITIES, REPORTS SKIN BEING FRAGILE AND HAS BEEN OUT DOING YARD WORK. DENIES ANY BLACK STOOLS OR RECTAL BLEEDING.
--- NOTE | 2018-09-29 15:58 | NUR ---
ATTEMPT MADE TO CALLED REPORT, SPOKE TO SINDHU. WILL HAVE NURSE CALL BACK FOR REPORT.
--- NOTE | 2018-09-29 16:10 | NUR ---
PATIENT RESTING ON STRETCHER, NO SIGNS OF DISTRESS NOTED, UPDATED ON WAIT TIME. VERBAL UNDERSTANDING. CALL LIGHT WITHIN REACH.
--- NOTE | 2018-09-29 16:29 | NUR ---
SECOND ATTMEPT MADE TO CALL REPORTS. NURSE NOT AVAILABLE. WILL CALL BACK.
--- NOTE | 2018-09-29 17:15 | NUR ---
PATIENT TRANSPORTED TO [facility] VIA STRETCHER. MATTEO MENDEZ AT BEDSIDE, CARE RELINQUISHED.
--- NOTE | 2018-09-29 17:16 | NUR ---
REPORT GIVEN TO MATTEO MENDEZ.
--- NOTE | 2018-09-29 17:17 | NUR ---
RECEIVED PT VIA STRETCHER WITH ER NURSE. PT ALERT. ABULATES WITH STADY GAIT, MICHAELS BOOT TO RIGHT FOOT. PT REPORTS WAS TREATED LAST WEEK FOR ANKLE SPRAIN, MODERATE AMOUNT OF SWELLING AND BRUSING NOTED TO RIGHT ANKLE/FOOT. GENERALIZED ABRASIONS NOTED TO SADIA ARMS FROM YARD WORK. NO BLEEDING NOTED AT THIS TIME. ASSESSMENT COMPLETE AND PLAN OF CARE DISCUSSED. PT ONLY REQUEST IS COFFEE.
[2018-09-29 17:25] VITALS: BP 155/70
--- NOTE | 2018-09-29 17:57 | NUR ---
PT SITTING IN HIGH FOWLERS EATING. NO COMPLAINTS.
[2018-09-29] MEDS ORDERED: LIPITOR40 M1 PO (17:59)
--- NOTE | 2018-09-29 19:05 | NUR ---
REPORT GIVEN BY ANDREA FELIPE. PATIENT ALERT AND ORIENTED. PATIENT IS IN BED WATCHING TV ASKING FOR COFFEE. ASSEMENT COMPLETED AT THIS TIME. FALL PRECAUTIONS IN PLACE. PLAN OF CARE REVIEWED. PATIENT INFORMED TO CALL WITH ANY QUESTIONS OR CONCERNS. RIGHT LEG/ANKLE HAS SWELLING AND BRUISING PRESENT.
[2018-09-29 21:07] VITALS: BP 150/78
--- NOTE | 2018-09-30 01:02 | NUR ---
PATIENT RESTING WITH EYES CLOSED. RESP EVEN AND UNLABORED. NO S/S OF DISTRESS NOTED.
--- NOTE | 2018-09-30 03:57 | NUR ---
PATIENT RESTING WITH EYES CLOSED. NO S/S OF DISTRESS NOTED. RESP EVEN AND UNLABORED.
[2018-09-30 04:32] VITALS: BP 100/60
--- NOTE | 2018-09-30 07:00 | NUR ---
SHIFT CHANGE REPORT, PT AWAKE ALERT AND ORIENTED RESTING IN BED, NO C/O DISCOMFORT, SCATTERED ALL OVER EXTREMETIES WITH SMALL QUANTITIES BLOODY DRAINAGE, ADVISED TO REFRAIN FROM SCRATCHING OFF SCABS, ALL NEEDS ADDRESSED, CALL VELEZ IN REACH.
[2018-09-30 08:24] VITALS: BP 110/62
[2018-09-30 08:58] LABS: HEMATOCRIT 31.5 % (39.0-50.0); HEMOGLOBIN 9.8 g/dl (14.0-18.0); IMMATURE GRANULOCYTES 0.1 % (0.0-5.0); MEAN CELL VOLUME 101.9 fL CALC (80.0-100.0); MEAN CORPUSCULAR HGB 31.7 pG CALC (26.0-32.0); MEAN CORPUSCULAR HGB CONC 31.1 g/L CALC (32.0-36.0); NEUT# 4.83 thou/uL (1.82-7.42); RED BLOOD COUNT 3.09 mill/uL (4.70-6.10); RED CELL DISTRI WIDTH 15.1 % (11.5-15.5)
[2018-09-30 09:36] LABS: INTERNATIONAL NORMALIZED RATIO 7.7 RATIO (0.7-1.3); PROTHROMBIN TIME 79.1 SECONDS (9.0-12.5)
[2018-09-30 10:08] LABS: ALBUMIN 3.3 g/dL (3.2-5.0); ALKALINE PHOSPHATASE 100 u/l (38-126); ANION GAP 9 (6-22 (CALC)); BUN 18 mg/dL (8-23); BUN/CREATININE RATIO 20 (12-20 (CALC)); CARBON DIOXIDE 27 mmol/l (22-30); CHLORIDE 108 mmol/l (95-108); CREATININE 0.9 mg/dL (0.7-1.3); GFR > 60 ML/MIN (>=60 (CALC)); GFR FOR AFR.AMER. > 60 ML/MIN (>=60 (CALC)); POTASSIUM 4.3 mmol/l (3.5-5.1); SGOT/AST 26 u/l (19-48); SODIUM 140 mmol/l (137-146); TOTAL PROTEIN 5.9 g/dL (6.3-8.2)
[2018-09-30 10:11] LABS: BILIRUBIN, TOTAL 1.2 mg/dL (0.0-1.4)
--- NOTE | 2018-09-30 12:00 | NUR ---
SITTING UP IN BED HAVING MEAL, ALL NEEDS MET/ADDRESSED.
[2018-09-30 14:50] VITALS: BP 115/72
--- NOTE | 2018-09-30 15:41 | NUR ---
RELAXING IN BED WATCHING TV, REMINDED NOT TO PICK ON SCABS TO PREVENT BLEEDING AND INFECTION, WILL CONTINUE TO MONITOR.
--- NOTE | 2018-09-30 16:00 | NUR ---
ASSISTED TO BR AND SUPERVISED AMBULATIONS BACK TO ROOM, ALL NEEDS ADDEESSED.
[2018-09-30 18:54] VITALS: BP 102/58
--- NOTE | 2018-09-30 20:15 | NUR ---
PT RESTING IN BED, NO SIGNS OF DISTRESS NOTED, RESP EVEN AND UNLABORED, DISCUSSED POC, PT IN AGREEMENT VOICES NO NEEDS OR COMPLAINTS AT THIS TIME. IV SITE FLUSHED WELL. PT REQUESTING SNACK AND COFFEE. PT PROVIDED WITH SNACK AND COFFEE. ASSESSMENT COMPLETED, CALL LIGHT IN REACH,CONTINUE TO MONITOR.
--- NOTE | 2018-09-30 22:25 | NUR ---
ASSISTED PT BACK TO BED FROM BATHROOM, PT STATES HE HAD A BM, CHECKED TOILET NOTED SMALL FORMED BROWN STOOL. PT VOICES NO NEEDS OR COMPLAINTS AT THIS TIME. CALL LIGHT IN REACH,CONTINUE TO MONITOR.
--- NOTE | 2018-10-01 00:22 | NUR ---
PT RESTING IN BED WITH EYES CLOSED, RESP EVEN AND UNLABORED. CALL LIGHT IN REACH,CONTINUE TO MONITOR.
[2018-10-01 04:29] VITALS: BP 114/68
[2018-10-01 05:44] LABS: HEMATOCRIT 29.7 % (39.0-50.0); HEMOGLOBIN 9.4 g/dl (14.0-18.0); IMMATURE GRANULOCYTES 0.2 % (0.0-5.0); MEAN CELL VOLUME 101.4 fL CALC (80.0-100.0); MEAN CORPUSCULAR HGB 32.1 pG CALC (26.0-32.0); MEAN CORPUSCULAR HGB CONC 31.6 g/L CALC (32.0-36.0); NEUT# 4.35 thou/uL (1.82-7.42); RED BLOOD COUNT 2.93 mill/uL (4.70-6.10)
[2018-10-01 06:05] LABS: ALBUMIN 3.2 g/dL (3.2-5.0); ALKALINE PHOSPHATASE 91 u/l (38-126); ANION GAP 11 (6-22 (CALC)); BILIRUBIN, TOTAL 0.9 mg/dL (0.0-1.4); BUN 21 mg/dL (8-23); BUN/CREATININE RATIO 21 (12-20 (CALC)); CARBON DIOXIDE 25 mmol/l (22-30); CHLORIDE 108 mmol/l (95-108); GFR > 60 ML/MIN (>=60 (CALC)); GFR FOR AFR.AMER. > 60 ML/MIN (>=60 (CALC)); MAGNESIUM 1.9 mg/dL (1.6-2.3); POTASSIUM 4.3 mmol/l (3.5-5.1); SGOT/AST 20 u/l (19-48); SODIUM 139 mmol/l (137-146); TOTAL PROTEIN 5.7 g/dL (6.3-8.2)
[2018-10-01 06:31] LABS: INTERNATIONAL NORMALIZED RATIO 1.9 RATIO (0.7-1.3); PROTHROMBIN TIME 19.9 SECONDS (9.0-12.5)
--- NOTE | 2018-10-01 07:00 | NUR ---
SHIFT CHANGE REAPORT, PT AWAKE ALERT AND ORIENTED JUST COMING OUT OF SHOWER, NO C/O DISCOMFORT, ALL NEEDS ADDRESSED, CALL VELEZ IN REACH.
[2018-10-01 07:30] VITALS: BP 116/73
[2018-10-01 08:15] VITALS: BP 116/73
--- NOTE | 2018-10-01 12:58 | NUR ---
DR ZAMORA ROUNDED AND DISCUSSED PLAN OF CARE TO D/C HOME TODAY.
[2018-10-01] MEDS ORDERED: ELIQUIS5 MG PO (13:51)
--- NOTE | 2018-10-01 16:39 | NUR ---
Discharge instructions given. Patient verbalizes understanding of same. Discharged in good condition via Wheelchair to Home with *Other. All belongings sent with pt.
== END 2018-10-01 16:06 | disposition home or self-care (01) | DRG 918 ==
LOC: ED 14:24 → ED-I 15:06 → ED 15:24 → MS2 15:25
PROVIDERS: ADMIT Internal Medicine Nephrology; ATTEND Internal Medicine Nephrology
DX: T45.511A Poisoning by anticoagulants, accidental (unintentional), initial encounter (principal); M79.81 Nontraumatic hematoma of soft tissue; S00.81XA Abrasion of other part of head, initial encounter; I11.0 Hypertensive heart disease with heart failure; I50.9 Heart failure, unspecified; I48.0 Paroxysmal atrial fibrillation; I25.10 Atherosclerotic heart disease of native coronary artery without angina pectoris; E78.5 Hyperlipidemia, unspecified; E03.9 Hypothyroidism, unspecified; K21.9 Gastro-esophageal reflux disease without esophagitis; J44.9 Chronic obstructive pulmonary disease, unspecified; N40.0 Benign prostatic hyperplasia without lower urinary tract symptoms; G40.909 Epilepsy, unspecified, not intractable, without status epilepticus; I25.5 Ischemic cardiomyopathy; F17.200 Nicotine dependence, unspecified, uncomplicated; X58.XXXA Exposure to other specified factors, initial encounter; Z86.73 Personal history of transient ischemic attack (TIA), and cerebral infarction without residual deficits; Z95.5 Presence of coronary angioplasty implant and graft; Z95.810 Presence of automatic (implantable) cardiac defibrillator

== ENCOUNTER 2018-12-23 21:44 | Emergency (ER) | payer MEDICARE ==
[~2018-12-23] VITALS: Ht 172.7 cm; Wt 55.0 kg
[~2018-12-23 21:44] MED LIST changes: +ELIQUIS5 MG PO; +METOPROL TAR25 MG PO
[2018-12-23] MEDS ORDERED: ASPIRIN81 MG PO (22:22)
[2018-12-23] MEDS ORDERED: FINASTERIDE5 MG PO (22:23)
[2018-12-23] MEDS ORDERED: ENTRESTO 24-261 TAB (22:26)
[2018-12-23] MEDS ORDERED: MENS MULTI VITAMIN & PO (22:27)
[2018-12-23 23:03] LABS: HEMATOCRIT 35.6 % (39.0-50.0); HEMOGLOBIN 11.5 g/dl (14.0-18.0); IMMATURE GRANULOCYTES 0.2 % (0.0-5.0); MEAN CELL VOLUME 98.3 fL CALC (80.0-100.0); MEAN CORPUSCULAR HGB 31.8 pG CALC (26.0-32.0); MEAN CORPUSCULAR HGB CONC 32.3 g/L CALC (32.0-36.0); NEUT# 6.24 thou/uL (1.82-7.42); RED BLOOD COUNT 3.62 mill/uL (4.70-6.10); RED CELL DISTRI WIDTH 14.3 % (11.5-15.5)
[2018-12-23 23:11] LABS: URINE BILIRUBIN - DIPSTICK NEGATIVE (NEGATIVE); URINE BLOOD DIPSTICK NEGATIVE (NEGATIVE); URINE COLOR YELLOW; URINE GLUCOSE - DIPSTICK NEGATIVE (NEGATIVE); URINE KETONE NEGATIVE (NEGATIVE); URINE LEUK ESTERASE NEGATIVE (NEGATIVE); URINE NITRITE - DIPSTICK NEGATIVE (Negative); URINE PH 5.5 (4.5-8.0); URINE PROTEIN - DIPSTICK NEGATIVE (NEG-TRACE); URINE UROBILINOGEN - DIPSTICK 0.2 E.U./dL (0.2)
[2018-12-23 23:19] LABS: ALBUMIN 4.1 g/dL (3.2-5.0); ALKALINE PHOSPHATASE 126 u/l (38-126); ANION GAP 15 (6-22 (CALC)); BUN 18 mg/dL (8-23); BUN/CREATININE RATIO 14 (12-20 (CALC)); CARBON DIOXIDE 29 mmol/l (22-30); CHLORIDE 101 mmol/l (95-108); CREATININE 1.2 mg/dL (0.7-1.3); GFR 60 ML/MIN (>=60 (CALC)); GFR FOR AFR.AMER. > 60 ML/MIN (>=60 (CALC)); POTASSIUM 3.9 mmol/l (3.5-5.1); SGOT/AST 27 u/l (19-48); SODIUM 141 mmol/l (137-146); TOTAL PROTEIN 7.4 g/dL (6.3-8.2)
[2018-12-23 23:20] LABS: BARBITURATES NEGATIVE (NEGATIVE); BILIRUBIN, TOTAL 1.5 mg/dL (0.0-1.4); COCAINE NEGATIVE (NEGATIVE); METHADONE NEGATIVE (NEGATIVE); OXCYCODONE NEGATIVE (NEGATIVE); TETRAHYDROCANNABIONOL NEGATIVE (NEGATIVE); TRICYLIC ANTIDEPRESSANTS NEGATIVE (NEGATIVE)
[2018-12-23 23:30] LABS: MYOGLOBIN 41 ng/mL (0 - 121)
[2018-12-23] MEDS ORDERED: ROBITUSSIN AC10 ML PO (23:35)
[2018-12-24 00:08] VITALS: BP 139/72
== END 2018-12-23 23:59 | disposition home or self-care (01) ==
LOC: ED 21:44
PROVIDERS: Emergency Medicine
DX: R53.1 Weakness (principal); I11.0 Hypertensive heart disease with heart failure; I50.9 Heart failure, unspecified; I25.10 Atherosclerotic heart disease of native coronary artery without angina pectoris; G40.909 Epilepsy, unspecified, not intractable, without status epilepticus; F17.200 Nicotine dependence, unspecified, uncomplicated; Z95.0 Presence of cardiac pacemaker; Z95.5 Presence of coronary angioplasty implant and graft

== ENCOUNTER 2019-02-19 16:50 | Inpatient (IN) | payer MEDICARE, MEDICAID ==
[~2019-02-19] VITALS: Ht 172.7 cm; Wt 55.3 kg
[~2019-02-19 16:50] MED LIST changes: +ASPIRIN81 MG PO; +ENTRESTO 24-261 TAB; +MENS MULTI VITAMIN & PO; +ROBITUSSIN AC10 ML PO
[2019-02-19 18:00] LABS: HEMATOCRIT 35.6 % (39.0-50.0); HEMOGLOBIN 11.4 g/dl (14.0-18.0); IMMATURE GRANULOCYTES 0.3 % (0.0-5.0); MEAN CELL VOLUME 98.6 fL CALC (80.0-100.0); MEAN CORPUSCULAR HGB 31.6 pG CALC (26.0-32.0); NEUT# 7.88 thou/uL (1.82-7.42); RED BLOOD COUNT 3.61 mill/uL (4.70-6.10); RED CELL DISTRI WIDTH 14.8 % (11.5-15.5); URINE BILIRUBIN - DIPSTICK NEGATIVE (NEGATIVE); URINE BLOOD DIPSTICK TRACE-LYSED (NEGATIVE); URINE COLOR YELLOW; URINE GLUCOSE - DIPSTICK NEGATIVE (NEGATIVE); URINE KETONE NEGATIVE (NEGATIVE); URINE LEUK ESTERASE NEGATIVE (NEGATIVE); URINE NITRITE - DIPSTICK NEGATIVE (Negative); URINE PH 5.5 (4.5-8.0); URINE PROTEIN - DIPSTICK TRACE mg/dL (NEG-TRACE); URINE SPECIFIC GRAVITY 1.025; URINE UROBILINOGEN - DIPSTICK 0.2 E.U./dL (0.2)
[2019-02-19] MEDS ORDERED: ELIQUIS2.5 MG PO (18:13)
[2019-02-19 18:18] LABS: ANION GAP 18 (6-22 (CALC)); BUN 18 mg/dL (8-23); BUN/CREATININE RATIO 19 (12-20 (CALC)); CHLORIDE 104 mmol/l (95-108); CREATININE 0.9 mg/dL (0.7-1.3); GFR > 60 ML/MIN (>=60 (CALC)); GFR FOR AFR.AMER. > 60 ML/MIN (>=60 (CALC)); POTASSIUM 4.5 mmol/l (3.5-5.1); SODIUM 137 mmol/l (137-146)
[2019-02-19 18:22] LABS: CARBON DIOXIDE 20 mmol/l (22-30)
[2019-02-19 20:52] VITALS: BP 116/69
[2019-02-19 23:49] VITALS: BP 103/61
[2019-02-20 04:25] VITALS: BP 101/69
[2019-02-20 08:34] VITALS: BP 107/69
[2019-02-20 09:05] LABS: HEMATOCRIT 32.2 % (39.0-50.0); HEMOGLOBIN 10.3 g/dl (14.0-18.0); IMMATURE GRANULOCYTES 0.3 % (0.0-5.0); MEAN CELL VOLUME 99.4 fL CALC (80.0-100.0); MEAN CORPUSCULAR HGB 31.8 pG CALC (26.0-32.0); NEUT# 5.44 thou/uL (1.82-7.42); RED BLOOD COUNT 3.24 mill/uL (4.70-6.10); RED CELL DISTRI WIDTH 14.9 % (11.5-15.5)
[2019-02-20 09:42] LABS: ANION GAP 14 (6-22 (CALC)); BUN 17 mg/dL (8-23); BUN/CREATININE RATIO 23 (12-20 (CALC)); CARBON DIOXIDE 22 mmol/l (22-30); CHLORIDE 105 mmol/l (95-108); CREATININE 0.7 mg/dL (0.7-1.3); GFR > 60 ML/MIN (>=60 (CALC)); GFR FOR AFR.AMER. > 60 ML/MIN (>=60 (CALC)); MAGNESIUM 1.9 mg/dL (1.6-2.3); POTASSIUM 4.2 mmol/l (3.5-5.1); SODIUM 137 mmol/l (137-146)
[2019-02-20 11:24] VITALS: BP 106/65
[2019-02-20 15:10] VITALS: BP 118/71
[2019-02-20 19:20] VITALS: BP 103/67
[2019-02-20 23:55] VITALS: BP 114/71
[2019-02-21 03:50] VITALS: BP 122/78
[2019-02-21 08:24] VITALS: BP 128/74
[2019-02-21 11:01] VITALS: BP 114/72
[2019-02-21 15:15] VITALS: BP 114/75
[2019-02-21 20:10] VITALS: BP 121/69
[2019-02-22] VITALS (7 sets, daily range): BP systolic 119–142; BP diastolic 51–87
[2019-02-22 05:54] LABS: HEMATOCRIT 30.5 % (39.0-50.0); HEMOGLOBIN 9.9 g/dl (14.0-18.0); IMMATURE GRANULOCYTES 0.6 % (0.0-5.0); MEAN CELL VOLUME 97.4 fL CALC (80.0-100.0); MEAN CORPUSCULAR HGB 31.6 pG CALC (26.0-32.0); MEAN CORPUSCULAR HGB CONC 32.5 g/L CALC (32.0-36.0); NEUT# 9.2 thou/uL (1.82-7.42); RED BLOOD COUNT 3.13 mill/uL (4.70-6.10); RED CELL DISTRI WIDTH 15.9 % (11.5-15.5)
[2019-02-22 06:00] LABS: ANION GAP 14 (6-22 (CALC)); BUN 24 mg/dL (8-23); BUN/CREATININE RATIO 24 (12-20 (CALC)); CARBON DIOXIDE 23 mmol/l (22-30); CHLORIDE 105 mmol/l (95-108); GFR > 60 ML/MIN (>=60 (CALC)); GFR FOR AFR.AMER. > 60 ML/MIN (>=60 (CALC)); MAGNESIUM 1.8 mg/dL (1.6-2.3); SODIUM 138 mmol/l (137-146)
[2019-02-23 05:14] VITALS: BP 120/72
[2019-02-23 09:01] VITALS: BP 128/79
[2019-02-23 10:25] VITALS: BP 126/79
[2019-02-23] MEDS ORDERED: NEBULIZER COMPRESSOR (12:34)
[2019-02-23] MEDS ORDERED: IPRATROPIU0.5 MG/3 M IN (12:34)
[2019-02-23] MEDS ORDERED: LEVAQUIN750 MG PO (12:34)
[2019-02-23] MEDS ORDERED: PREDNISONE10 MG PO (12:34)
== END 2019-02-23 14:04 | disposition home or self-care (01) | DRG 871 ==
LOC: ED 16:50 → ED-I 18:39 → ED 18:39 → ED-I 18:39 → ED 18:48 → MS2 18:49
PROVIDERS: Family Medicine; Nurse Practitioner Family; ADMIT Internal Medicine; ATTEND Internal Medicine
DX: A41.9 Sepsis, unspecified organism (principal); J18.9 Pneumonia, unspecified organism; J44.1 Chronic obstructive pulmonary disease with (acute) exacerbation; J44.0 Chronic obstructive pulmonary disease with (acute) lower respiratory infection; E87.2 Acidosis; I47.2 Ventricular tachycardia; Z68.1 Body mass index [BMI] 19.9 or less, adult; I11.0 Hypertensive heart disease with heart failure; I50.9 Heart failure, unspecified; I25.10 Atherosclerotic heart disease of native coronary artery without angina pectoris; E78.5 Hyperlipidemia, unspecified; D64.9 Anemia, unspecified; F17.210 Nicotine dependence, cigarettes, uncomplicated; G40.909 Epilepsy, unspecified, not intractable, without status epilepticus; E03.9 Hypothyroidism, unspecified; R68.0 Hypothermia, not associated with low environmental temperature; I48.0 Paroxysmal atrial fibrillation; N40.0 Benign prostatic hyperplasia without lower urinary tract symptoms; I25.5 Ischemic cardiomyopathy; R63.4 Abnormal weight loss; Z86.73 Personal history of transient ischemic attack (TIA), and cerebral infarction without residual deficits; Z95.810 Presence of automatic (implantable) cardiac defibrillator; Z95.5 Presence of coronary angioplasty implant and graft
CPT/HCPCS: G0378; Q9967

== ENCOUNTER 2019-12-04 12:48 | Emergency (ER) | payer MEDICARE, MEDICAID ==
[~2019-12-04] VITALS: Ht 172.7 cm; Wt 55.0 kg
[~2019-12-04 12:48] MED LIST changes: +ELIQUIS2.5 MG PO; +IPRATROPIU0.5 MG/3 M IN; +LEVAQUIN750 MG PO; +NEBULIZER COMPRESSOR
[2019-12-04 15:07] LABS: HEMATOCRIT 37.4 % (39.0-50.0); HEMOGLOBIN 11.8 g/dl (14.0-18.0); IMMATURE GRANULOCYTES 0.3 % (0.0-5.0); MEAN CELL VOLUME 100.8 fL CALC (80.0-100.0); MEAN CORPUSCULAR HGB 31.8 pG CALC (26.0-32.0); MEAN CORPUSCULAR HGB CONC 31.6 g/dL CAL (32.0-36.0); NEUT# 6.7 thou/uL (1.82-7.42); RED BLOOD COUNT 3.71 mill/uL (4.70-6.10); RED CELL DISTRI WIDTH 13.9 % (11.5-15.5)
[2019-12-04 15:07] LABS: URINE BILIRUBIN - DIPSTICK NEGATIVE (NEGATIVE); URINE BLOOD DIPSTICK NEGATIVE (NEGATIVE); URINE COLOR YELLOW; URINE GLUCOSE - DIPSTICK NEGATIVE (NEGATIVE); URINE KETONE NEGATIVE (NEGATIVE); URINE LEUK ESTERASE NEGATIVE (NEGATIVE); URINE NITRITE - DIPSTICK NEGATIVE (Negative); URINE PH 5.5 (4.5-8.0); URINE PROTEIN - DIPSTICK NEGATIVE (NEG-TRACE); URINE UROBILINOGEN - DIPSTICK 0.2 E.U./dL (0.2)
[2019-12-04 15:12] LABS: ALBUMIN 4.2 g/dL (3.2-5.0); ALKALINE PHOSPHATASE 76 u/l (38-126); ANION GAP 12 (6-22 (CALC)); BUN 24 mg/dL (8-23); BUN/CREATININE RATIO 23 (12-20 (CALC)); CARBON DIOXIDE 28 mmol/l (22-30); CHLORIDE 103 mmol/l (95-108); GFR > 60 ML/MIN (>=60 (CALC)); GFR FOR AFR.AMER. > 60 ML/MIN (>=60 (CALC)); LIPASE 71 u/l (23-300); MAGNESIUM 2.1 mg/dL (1.6-2.3); POTASSIUM 4.1 mmol/l (3.5-5.1); SGOT/AST 23 u/l (19-48); SODIUM 139 mmol/l (137-146); TOTAL PROTEIN 6.6 g/dL (6.3-8.2)
[2019-12-04 15:20] LABS: BILIRUBIN, TOTAL 1.1 mg/dL (0.0-1.4)
[2019-12-04 15:42] LABS: TSH, 3RD GENERATION 4.06 uIU/mL (0.47 - 4.68)
[2019-12-04 17:40] VITALS: BP 110/64
== END 2019-12-04 17:41 | disposition home or self-care (01) ==
LOC: ED 12:48
PROVIDERS: Family Medicine
DX: R53.1 Weakness (principal); I11.0 Hypertensive heart disease with heart failure; I50.9 Heart failure, unspecified; J44.9 Chronic obstructive pulmonary disease, unspecified; I25.10 Atherosclerotic heart disease of native coronary artery without angina pectoris; E03.9 Hypothyroidism, unspecified; E78.5 Hyperlipidemia, unspecified; G40.909 Epilepsy, unspecified, not intractable, without status epilepticus; F17.200 Nicotine dependence, unspecified, uncomplicated; Z95.5 Presence of coronary angioplasty implant and graft; Z86.73 Personal history of transient ischemic attack (TIA), and cerebral infarction without residual deficits

== ENCOUNTER 2019-12-10 21:00 | Observation (INO) | payer MEDICARE, MEDICAID ==
[~2019-12-10] VITALS: Ht 157.5 cm; Wt 52.4 kg
[2019-12-10] MEDS ORDERED: LEVOTHYROXIN50 MCG PO (21:15)
--- NOTE | 2019-12-10 21:16 | NUR ---
PATIENT IMMEDIATELY TO TREATMENT ROOM 13 BY EMS. PATIENT AWAKE AND ALERT, C/O PAIN TO RIGHT ELBOW AND IRREGULAR HEARTBEAT, AMBULATORY FROM EMS STRETCHER TO TREATMENT AREA.
[2019-12-10 21:38] LABS: HEMATOCRIT 33.7 % (39.0-50.0); HEMOGLOBIN 10.7 g/dl (14.0-18.0); IMMATURE GRANULOCYTES 0.3 % (0.0-5.0); MEAN CELL VOLUME 100.3 fL CALC (80.0-100.0); MEAN CORPUSCULAR HGB 31.8 pG CALC (26.0-32.0); MEAN CORPUSCULAR HGB CONC 31.8 g/dL CAL (32.0-36.0); NEUT# 6.85 thou/uL (1.82-7.42); RED BLOOD COUNT 3.36 mill/uL (4.70-6.10); RED CELL DISTRI WIDTH 14.4 % (11.5-15.5)
--- NOTE | 2019-12-10 21:47 | NUR ---
WATCHING TV. NAD. AWAITING TEST RESULTS
[2019-12-10 21:51] LABS: ALBUMIN 4.1 g/dL (3.2-5.0); BUN 25 mg/dL (8-23); BUN/CREATININE RATIO 26 (12-20 (CALC)); CARBON DIOXIDE 28 mmol/l (22-30); CHLORIDE 101 mmol/l (95-108); GFR > 60 ML/MIN (>=60 (CALC)); GFR FOR AFR.AMER. > 60 ML/MIN (>=60 (CALC)); SODIUM 136 mmol/l (137-146); TOTAL PROTEIN 6.8 g/dL (6.3-8.2)
[2019-12-10 21:55] LABS: ALKALINE PHOSPHATASE 133 u/l (38-126); ANION GAP 11 (6-22 (CALC)); POTASSIUM 4.4 mmol/l (3.5-5.1); PROTHROMBIN TIME 10.1 SECONDS (9.0-12.5); SGOT/AST 38 u/l (19-48)
[2019-12-10 22:04] LABS: MYOGLOBIN 22 ng/mL (0 - 121)
[2019-12-10 22:23] LABS: URINE BILIRUBIN - DIPSTICK NEGATIVE (NEGATIVE); URINE BLOOD DIPSTICK NEGATIVE (NEGATIVE); URINE COLOR YELLOW; URINE GLUCOSE - DIPSTICK NEGATIVE (NEGATIVE); URINE KETONE TRACE mg/dL (NEGATIVE); URINE LEUK ESTERASE NEGATIVE (NEGATIVE); URINE NITRITE - DIPSTICK NEGATIVE (Negative); URINE PROTEIN - DIPSTICK TRACE mg/dL (NEG-TRACE); URINE UROBILINOGEN - DIPSTICK 0.2 E.U./dL (0.2)
--- NOTE | 2019-12-10 22:45 | NUR ---
RESTING QUIETLY AWAITING TEST RESULTS.
--- NOTE | 2019-12-10 23:45 | NUR ---
NO CHANGE IN EXAM. APPEARS COMFORTABLE. AWAITING DISPO.
[2019-12-11] VITALS (8 sets, daily range): BP systolic 112–134; BP diastolic 62–88
--- NOTE | 2019-12-11 00:55 | NUR ---
Admission Note Report Given to: MATTEO PEARCE Transported by: X Wheelchair Stretcher Transported with: X Nurse Transporter X Patent IV O2 X Quality Audit Representative Location: ICU X [facility]
--- NOTE | 2019-12-11 01:45 | NUR ---
ED PHYSICIAN CALLED REGARDING IVF ORDER TO CONFIRM. ORDERS TO DC IVF AT THIS TIME.
--- NOTE | 2019-12-11 03:05 | NUR ---
PT ARRIVED TO THE MED/SURG FLOOR VIA WC BY ED NURSE TONO AT 0100 . PT SELF ABULATED TO THE BED FROM THE CHAIR. PT IS ALERT AND ORIENTED X3 WITH NO EVIDENCE OF DISTRESS. PTS V/S AND ASSESSMENT COMPLETE. PT IS AFEBRILE; LUNGS SOUND COARSE IN THE LOWER LOBES; NO SOB; PT IS BREATHING RA. V/S PTS IV IS PATENT AND FREE OF REDDNESS OR EDEMA. TELEMENTRY IN PLACE. PT INSTRUCTED TO CALL SYSTEM, LIGHTS AND BED CONTROLS. URINAL AT BEDSIDE BUT PT INSTRUCTED TO CALL PRIOR TO AMBULATING IF HE NEEDS TO GET UP. PT VERBALIZED UNDERSTANDING. CALL VELEZ WITHIN REACH. WILL CONTINUE TO MONITOR.
--- NOTE | 2019-12-11 04:45 | NUR ---
pt called to report throbbing pain in "muscle area" of r.arm. When asked to locate he reported the pain between r.elbow and shoulder "in the muscle." Pt provided warmpack for comfort and instructed to call if pain worsens or any other symptoms arise. denies sob or cp at this time.
--- NOTE | 2019-12-11 04:49 | NUR ---
PT RESTING IN BED, C/O OF RIGHT ARM PAIN. WARM PAD PROVIDED. WILL CONTINUE TO MONITOR.
--- NOTE | 2019-12-11 07:29 | NUR ---
RECIEVED REPORT FROM MATTEO NÚÑEZ. PT RESITNG IN SEMI FOWLERS POSITION UPON ENTERING ROOM. INTRODUCED SELF TO PT AND DISCUSSED POC. RESPIRATIONS ARE EVEN AND UNLABORED WITH NO SIGNS OF DISTRESS. LUNG SOUNDS ARE CLEAR.HEART RHYTHM IS NORMAL WITH TELE IN PLACE. BOWEL SOUNDS ARE ACTIVE IN ALL QUADRANTS, LAST REPORTED BM 12/10/19. RADIAL AND PEDAL PULSES ARE STRONG WITH NORMAL CAPILLARY REFILL. #20 RAC FLUSHED, SITE APPEARS HEALTHY AND PATENT. PT COMPLAINS OF 4/10 CHEST PAIN, PT STATED "IT DOESNT HURT THAT BAD TO WHERE I NEED MEDICINE." MD TO BE NOTIFED. PT DENIES OF ANY PAIN OR DISCOMFORTS. ALL SAFETY PRECAUTIONS ARE IN PLACE WITH CALL LIGHT IN REACH.WILL CONTINUE TO MONITOR.
--- NOTE | 2019-12-11 09:34 | NUR ---
PT COMPLAINS OF 5/10 CHEST PAIN. VITALS OBTAINED, PT REAMINS ASYMPTOMATIC. INDIGO FLYNN NOTIFIED OF PT COMPLAINTS. ALL SAFTEY PRECAUTIONS ARE IN PLACE WITH CALL LIGHT IN REACH. WILL CONTINUE TO MONITOR
--- NOTE | 2019-12-11 10:19 | NUR ---
PT COMPLAINS OF 5/10 PAIN IN CHESTA DN RIGHT ELBOW. ULTRAM ADMINISTERED. LELAND FLYNNRP NOTIFIED OF PT COMPLAINT. RESPIRATIONS ARE EVEN AND UNLABORED. ALL SFAETY PRECAUTIONS ARE IN PLACE WIHT CALL LIGHT IN REACH. WILL CONTINUE TO MONITOR
--- NOTE | 2019-12-11 11:17 | NUR ---
REASSESSMENT OF PAIN AT THIS TIME. PT STATES "I DONT HAVE PAIN RIGHT NOW. IT COMES AND GOES." RESPIRATIONS ARE EVEN AND UNLABORE DIWHT NO SIGNS OF DISTRESS. ALL SFAETY PRECAUTIONS ARE IN PLACE WITH CLAL LIGHT IN REACH. WILL CONTINUE TO MONITOR
--- NOTE | 2019-12-11 12:00 | NUR ---
PT RESTING IN SEMI FOWLERS POSITION WATCHING TV. REPSIRATIONS ARE EVEN AND UNLABORED WITH NO SIGNS OF DISTRESS NOTED. WRITTER SUGGESTED SITTING UP OIN CHAIR. PT REFUSED. ALL SAFETY PRECAUTIONS ARE IN PLACE WITH CALL LIGHT IN REACH. WILL CONTINUE TO MONITOR.
--- NOTE | 2019-12-11 14:14 | NUR ---
JOCYITTER INFROMEDBY CM THAT PT COMPLAINS OF CHEST PAIN. PT RESTING IN SEMI FOWLERS POSITION UPON ENTERING ROOM. RESPRIATIONS ARE EVEN ADN UNLABORED. PT DENIED CHEST PAIN. PT STATED "I DO HAVE A LITTLE DISCOMFORT IN MY ELBOW BUT NO CHEST PAIN." VITALS OBTAINED. PT REMAINS SYMPTOMATIC. ALL SAFETY PRECAUTIONS IN PLACE WITH CALL LIGHT IN REACH. WILL CONTINUE TO MONITOR
--- NOTE | 2019-12-11 16:00 | NUR ---
PT RESTING IN SEMI FOWLERS POSITION WATCHING TV AT THIS TIME. RESPIRATIONS ARE EVEN AND UNLABORED WITH NO SIGNS OF DISTRESS NOTED. PT DENIES ANY PAIN OR DISCOMFORTS. ALL SAFETY PRECAUTIONS ARE IN PLACE WITH CALL LIGHT IN REACH. WILL CONTINUE TO MONITOR.
--- NOTE | 2019-12-11 17:38 | NUR ---
CALLED BY ER TELE MONITOR STATING HR WAS IN 120/130. VITALS OBTAINED. PT RESTING IN SEMI FOWLERS POSITION EATING LUNHC.BP 131/85, HR 108, O2 93%. PT DENIES ANY PAIN OR DISCOMFORTS AT THIS TIME. ALL SAFETY PRECSAUTIONS ARE IN PLACE. WILL CONTINUE TO MONITOR
--- NOTE | 2019-12-11 17:50 | NUR ---
RECIEVED CALL FROM TELE MONITOR STATING " HIS TELE KEEPS GOING ON AND OFF." WRITTER ASKED WHAT SHE MENT BY "TURNING ON AND OFF" TELE MONITOR STATES "THERES ALOT OF ARTIFAC". NEW LEADS PLACE ON PT. VITALS OBTAINED. PT REMAINS ASYMPTOMATIC. PT DENIES ANY CHEST PAIN. ALL SAFETY PRECAUTIONS ARE IN PLACE WITH CALL LIGHT IN REACH. WILL CONTINUE TO MONITOR
--- NOTE | 2019-12-11 19:02 | NUR ---
REPORT FROM BEREKET STAPLES. ASSUMED CARE AT THIS TIME.
--- NOTE | 2019-12-11 20:39 | NUR ---
PT MEDICATED FOR BILATERAL ARM PAIN 5-10. ENCOURAGED REPOSITIONING FOR COMFORT. ASSESSMENT COMPLETE. NO APPARENT DISTRESS NOTED. SNACK PROVIDED UPON REQUEST. URINAL EMPTIED. CALL LIGHT WITHIN REACH. WILL CONTINUE TO MONITOR.
[2019-12-12 00:23] VITALS: BP 115/74
--- NOTE | 2019-12-12 00:29 | NUR ---
PT RESTING IN BED. NO APPARENT DISTRESS NOTED. DIRECTOR SPECIAL EDUCATION IN PLACE. CALL LIGHT WITHIN REACH. WILL CONTINUE TO MONITOR.
--- NOTE | 2019-12-12 04:28 | NUR ---
PT RESTING IN BED WITH EYES CLOSED. NO APPARENT DISTRESS NOTED. RESPIRATIONS EVEN AND UNLABORED. CALL LIGHT WITHIN REACH. WILL CONTINUE TO MONITOR.
[2019-12-12 04:47] VITALS: BP 101/75
--- NOTE | 2019-12-12 08:00 | NUR ---
RECIEVED REPORT FROM BEL LANDEROS. PT RESTING IN SEMI FOWLERS POSITION UPON ENTERING ROOM. ER TELE MONIOTRING TEL CALLED STATING "PT RUNNING AFIB." MD TO BE NOTIFED. ASSESSMENT ANG VITALS COMPLETED AT THIS TIME. RESPIRATIONS ARE EVEN AND UNLABORED. LUNG SOUNDS HAS WHEEZING IN LEFT QUADRANTS AND LEFT LOWER QUADRANTS.HEART RHYTHM IS NORMAL WITH TELE IN PLACE. BOWEL SOUNDS ARE ACTIVE IN ALL QUADRANTS, LAST REPORTED BM 12/10/19. RADIAL AND PEDAL PULSES ARE STRONG WITH NORMAL CAPILLARY REFILL. #20 IN RAC FLUSHED, SITE APPERAS HEALTHY AND PATENT.SKIN IS WARM AND DRY WITH MULTIPLE SMALL SCABBS ON ARMS BILATERALLY. PT COMPLAINS OF 4/10 PAIN IN RIGHT ARM, ULTRAM TO BE ADMINISTERED. PT DENIES ANY CHEST PAINS. ALL SAFEY BPRECAUTIONS ARE IN PLACE WITH CALL LIGHT IN REACH. WILL CONTINUE TO MONITOR.
--- NOTE | 2019-12-12 08:30 | NUR ---
GEE, ANDAO AT BEDSIDE DISCUSSING POC WITH PT
[2019-12-12] MEDS ORDERED: CORDARONE/200 MG/TAB PO (08:31)
[2019-12-12] MEDS ORDERED: TOPROL XL25 MG PO (08:39)
--- NOTE | 2019-12-12 10:32 | NUR ---
REASSESSMENT OF PAIN AT THIS TIME. PT STATES THAT HE CURRENTLY HAS NO PAIN. RESPIRATIONS AREE EVEN AND UNLABORED WITH NO SIGNS OF DISTRESS NOTED. ALL SAFETY PRECAUTIONS ARE IN PLACE WITH CALL LIGHT IN REACH. WILL CONTINUE TO MONITOR
[2019-12-12 10:34] VITALS: BP 107/75
[2019-12-12 11:50] VITALS: BP 102/79
--- NOTE | 2019-12-12 12:39 | NUR ---
PT SLEEPING IN SEMI FOWELS POSITION . RESPIRATIONS ARE EVEN AND UNLABORED WITH NO SIGNS OF DISTRESS NOTED. TELE MONITOR IN PLACE. NO SIGNS OF ANY PAIN OR DISCOMFORTS NOTED. ALL SAFETY PRECAUTIONS ARE IN PLACE WITH CALL LIGHT IN REACH. WILL CONTINUE TO MONITOR
--- NOTE | 2019-12-12 14:00 | NUR ---
WRITTER ASSISTED PT INTO SHOWER. LINEN CHANGED. SUGGESTED PT SIT IN RECYLINER, PT REFUSED. PT ASSISTED BACK INTO BED. TELE MONITORING REAPPLIED. ALL SAFTEY PRECAUTIONS ARE IN PLACE WITH CALL LIGHT IN REACH. WILL CONTINUE TO MONITOR.
[2019-12-12 16:10] VITALS: BP 122/82
--- NOTE | 2019-12-12 16:40 | NUR ---
PT RESTING IN SEMI FOLWERS POSTIION WATCHING TV. RESPIRATIONS ARE EVEN AND UNLABROED WITH NO SIGNS OF DISTRESS NOTED. PT DENIES OF ANY PAIN OR DISCOMFORTS. ALL SAFETY PRECAUTIONS ARE IN PLACE WITH CALL LIGHT IN REACH. WILL CONTINUE TO MONITOR
[2019-12-12 19:00] VITALS: BP 111/73
--- NOTE | 2019-12-12 19:00 | NUR ---
REPORT RECEIVED FROM BEL CROCKETT. PT RESTING IN BED FREE FROM DISTRESS AT THIS TIME. SAFETY PRECAUTIONS IN PLACE. WILL CONTINUE TO MONITOR.
--- NOTE | 2019-12-12 19:55 | NUR ---
PT RESTING IN BED, ALERT AND ORIENTED. RESPIRATIONS EVEN AND UNLABORED ON RA. LUNGS SOUND CLEAR. PEDAL PULSES ARE STRONG. PT DENIES ANY PAIN AT THIS TIME. TELE IN PLACE. CALL VELEZ WITHIN REACH. WILL CONTINUE TO MONITOR.
--- NOTE | 2019-12-12 21:20 | NUR ---
PT CALLS NURSE INTO THE ROOM, PT STATES "I JUST DON'T FEEL RIGHT, I FEEL SHORT OF BREATH, I FEEL WEAK, I'M TIRED OF BEING TIRED... I JUST FEEL WORN OUT AND I HAVEN'T DONE ANYTHING, MY JAW VANESSA HURTS IT FEELS STIFF, I JUST DONT FEEL RIGHT" PT DENIES ANY CHEST PAIN OR DISCOMFORT AT THIS TIME. PT SEEM ANXIOUS. VS OBTAIN, ER CALLED TO SEE IF THERE WAS ANY CHANGED ON TELEMETRTY. ALLOWED PT TO DISCUSS CONCERNS. WILL CONTINUE TO MONITOR.
--- NOTE | 2019-12-12 23:10 | NUR ---
PT CALLS NURSE INTO THE ROOM STATING "I JUST FEEL WEAK, I DON'T KNOW WHY I FEEL SO WEAK AND TIRED". ALLOWED FOR PT TO DISCUSS CONCERNS. PT STATES "HE HASN'T SLEPT MUCH" TURNED THE LIGHTS DOWN FOR PT ASSISTED HIM TO GET COMFORTABLE IN BED, PT TO BE MEDICATED FOR HIS PAIN PER EMAR ORDERS. SAFETY PRECAUTIONS IN PLACE. WILL CONTINUE TO MONITOR.
[2019-12-13] VITALS: BP 114/81
--- NOTE | 2019-12-13 01:05 | NUR ---
PT RESTING IN BED, NO S/S OF DISTRESS AT THIS TIME. SAFETY PRECAUTIONS IN PLACE. WILL CONTINUE TO MONITOR.
[2019-12-13 04:00] VITALS: BP 110/79
--- NOTE | 2019-12-13 04:20 | NUR ---
PT RESTING IN BED, FREE FROM DISTRESS AT THIS TIME. CALL VELEZ WITHIN REACH. WILL CONTINUE TO MONITOR.
[2019-12-13 04:49] LABS: HEMATOCRIT 32.4 % (39.0-50.0); HEMOGLOBIN 10.5 g/dl (14.0-18.0); MEAN CORPUSCULAR HGB 32.4 pG CALC (26.0-32.0); MEAN CORPUSCULAR HGB CONC 32.4 g/dL CAL (32.0-36.0); RED BLOOD COUNT 3.24 mill/uL (4.70-6.10); RED CELL DISTRI WIDTH 14.1 % (11.5-15.5)
[2019-12-13 05:07] LABS: ALBUMIN 3.4 g/dL (3.2-5.0); ALKALINE PHOSPHATASE 143 u/l (38-126); ANION GAP 11 (6-22 (CALC)); BILIRUBIN, TOTAL 1.1 mg/dL (0.0-1.4); BUN 29 mg/dL (8-23); BUN/CREATININE RATIO 32 (12-20 (CALC)); CARBON DIOXIDE 25 mmol/l (22-30); CHLORIDE 102 mmol/l (95-108); CREATININE 0.9 mg/dL (0.7-1.3); GFR > 60 ML/MIN (>=60 (CALC)); GFR FOR AFR.AMER. > 60 ML/MIN (>=60 (CALC)); POTASSIUM 4.2 mmol/l (3.5-5.1); SGOT/AST 27 u/l (19-48); SODIUM 134 mmol/l (137-146); TOTAL PROTEIN 5.7 g/dL (6.3-8.2)
[2019-12-13 07:21] VITALS: BP 121/92
--- NOTE | 2019-12-13 07:21 | NUR ---
RECIEVED REPORT FROM MATTEO GARCIA. PT RESTING IN SEMI FOWLERS POSITION UPON ENTERING ROOM. INTRODUCED SELF TO PT AND DISCUSSED POC. PT IS A/O X3. ASSESSMENT AND VITALS COMPLETED AT THSI TIME. RESPIRATIONS ARE EVEN AND UNLABORED WITH NO SIGNS OF DISTRESS. LUNG SOUNDS ARE CLEAR. HEART RHYTHM IS NORMAL WITH TELE IN PLACE. BOWEL SOUNDS ARE ACTIVE IN ALL QUADRANTS, LAST REPORTED BM 12/12/2019. RADIAL AND PEDAL PULSES ARE STRONG WITH NORMAL CAPILLARY REFILL. #20 IN RAC FLUSHED, SITE APPEARS HEALTHY AND PATENT. PT COMPLAINS OF "SLIGHT PAIN IN RIGHT ELBOW" RATING AT 3/10, HEAT PACK GIVEN TO ASSIST. PT DENIES ANY OTHER PAINS OR DISCOMFORTS. ALL SAFETY PRECAUTIONS ARE IN PLACE WITH CALL LIGHT IN REACH. WILL CONTINUE TO MONITOR.
[2019-12-13] MEDS ORDERED: ENTRESTO 24-261 TAB PO (11:08)
[2019-12-13] MEDS ORDERED: LASIX 40 MG TAB40 MG PO (11:08)
[2019-12-13] MEDS ORDERED: TOPROL XL25 MG PO (11:08)
--- NOTE | 2019-12-13 12:30 | NUR ---
PT RESTING IN SEMI FOWLERS POSITION WATCHING TV. RESPIRATIONS ARE EVEN AND UNLABORED WITH NO SIGNS OF DISTRESS NOTED.DC ORDERS IN, TO BE COMPLETED. PT STATES HE HAS NO WAY OF TRANSPORTION.DENTAL THERAPIST TO CONTACTED TO ASSSIST WITH [facility]. ALL SAFETY PRECAUTIONS ARE IN PLACE WIHT CALL LIGHT IN REACH. WILL CONTINUE TO MONITOR
[2019-12-13 13:08] VITALS: BP 110/79
--- NOTE | 2019-12-13 13:38 | NUR ---
PT EDUCATED ON DISCHARGE INSTRUCTIONS AND THE IMPORTANCE OF NOT RUNNING OUT OF HOME MEDICTAIONS. PT VERBALIZED UNDERSTANDING. MEDICATIONS LASIX, METOPROLOL, AND ENTRESTO GIVEN TO PT BY [facility]. WRITTER INFORMED PT THAT BP MEDICTAION WOULD ONLY LAST Saturday. PT VERBAILZED UNDERSTANDING. HOME MEDICTAIONS RETURNED BACK TO PT FROM [facility]. [facility]AXI BEING PAYED FOR BY [facility]. IV REMOVED WITH CATHATER STILL INTACT. PT TOLERATED WELL. TELE MONITORING REMOVED. ALL SAFTEY PRECAUTIONS ARE IN PLACE. AWAITING FOR TRANSPORTATION AT THIS TIME WILL CONTINUE TO MONITOR
--- NOTE | 2019-12-13 14:30 | NUR ---
Discharge instructions given. Patient verbalizes understanding of same. Discharged in stable condition via Wheelchair to Home with staff. All belongings sent with pt. PT DISCHARGE IN STABLE CONDITION VIA WHEELCHAIR ACCOMPAINED BY LAUREN GARDINER. PT LEFT WITH ALL DISCHARGE INSTRUCTIONS, HOME MEDS RETURNMED FROM [facility] AND MEDICATIONS THAT PT WAS OUT OF PROVIDED BY DEANNA PRATHER.
== END 2019-12-13 14:32 | disposition home or self-care (01) ==
LOC: ED 21:00 → ED-I 22:30 → ED 23:38 → MS2 23:39
PROVIDERS: Emergency Medicine; Nurse Practitioner Family; ADMIT Internal Medicine; ATTEND Internal Medicine
DX: I48.0 Paroxysmal atrial fibrillation (principal); I11.0 Hypertensive heart disease with heart failure; I50.9 Heart failure, unspecified; J44.9 Chronic obstructive pulmonary disease, unspecified; I48.92 Unspecified atrial flutter; I49.3 Ventricular premature depolarization; S43.031A Inferior subluxation of right humerus, initial encounter; I25.10 Atherosclerotic heart disease of native coronary artery without angina pectoris; E03.9 Hypothyroidism, unspecified; E78.5 Hyperlipidemia, unspecified; I25.5 Ischemic cardiomyopathy; G40.909 Epilepsy, unspecified, not intractable, without status epilepticus; F17.210 Nicotine dependence, cigarettes, uncomplicated; T45.516A Underdosing of anticoagulants, initial encounter; T44.7X6A Underdosing of beta-adrenoreceptor antagonists, initial encounter; X58.XXXA Exposure to other specified factors, initial encounter; Z91.128 Patient's intentional underdosing of medication regimen for other reason; Z95.0 Presence of cardiac pacemaker; Z95.5 Presence of coronary angioplasty implant and graft; Z86.73 Personal history of transient ischemic attack (TIA), and cerebral infarction without residual deficits; Z79.01 Long term (current) use of anticoagulants; Z95.810 Presence of automatic (implantable) cardiac defibrillator; Z20.828 Contact with and (suspected) exposure to other viral communicable diseases
CPT/HCPCS: G0378

== ENCOUNTER 2020-01-15 13:53 | Observation (INO) | payer MEDICARE, MEDICAID ==
[~2020-01-15] VITALS: Ht 157.5 cm; Wt 55.8 kg
[~2020-01-15 13:53] MED LIST changes: +CORDARONE/200 MG/TAB PO; +TOPROL XL25 MG PO
--- NOTE | 2020-01-15 13:53 | NUR ---
PT TO ROOM 10 VIA WC. BEDSIDE TRIAGE COMPLETED
--- NOTE | 2020-01-15 14:00 | NUR ---
PT RESTING COMFORTABLY ON STRETCHER. VSS ON MONITOR. CALL LIGHT IN REACH. WILLC CONTINUE TO MONITOR
--- NOTE | 2020-01-15 15:00 | NUR ---
PT CLAIMS PROCESSOR LIGHT QUESTIONING HIS DOLLAR GENERAL BAG THAT HE BROUGHT. UNABLE TO LOCATE DOLLAR GENERAL BAG.
[2020-01-15 15:07] LABS: HEMATOCRIT 35.9 % (39.0-50.0); HEMOGLOBIN 11.4 g/dl (14.0-18.0); IMMATURE GRANULOCYTES 0.3 % (0.0-5.0); MEAN CELL VOLUME 100.6 fL CALC (80.0-100.0); MEAN CORPUSCULAR HGB 31.9 pG CALC (26.0-32.0); MEAN CORPUSCULAR HGB CONC 31.8 g/dL CAL (32.0-36.0); NEUT# 5.62 thou/uL (1.82-7.42); RED BLOOD COUNT 3.57 mill/uL (4.70-6.10); RED CELL DISTRI WIDTH 14.4 % (11.5-15.5)
[2020-01-15 15:13] LABS: ALBUMIN 3.9 g/dL (3.2-5.0); ALKALINE PHOSPHATASE 105 u/l (38-126); ANION GAP 10 (6-22 (CALC)); BILIRUBIN, TOTAL 0.8 mg/dL (0.0-1.4); BUN 21 mg/dL (8-23); BUN/CREATININE RATIO 17 (12-20 (CALC)); CARBON DIOXIDE 27 mmol/l (22-30); CHLORIDE 105 mmol/l (95-108); CREATININE 1.3 mg/dL (0.7-1.3); GFR 55 ML/MIN (>=60 (CALC)); GFR FOR AFR.AMER. > 60 ML/MIN (>=60 (CALC)); POTASSIUM 4.2 mmol/l (3.5-5.1); SGOT/AST 23 u/l (19-48); SODIUM 138 mmol/l (137-146); TOTAL PROTEIN 6.7 g/dL (6.3-8.2)
--- NOTE | 2020-01-15 16:00 | NUR ---
PT AWARE OF NEED FOR ADMISSION. RESTING ON STRETCHER NO DISTRESS NOTED. CALL LIGHT IN REACH. WILL CONTINUE TO MONITOR
[2020-01-15] MEDS ORDERED: LASIX 40 MG TAB40 MG PO (16:31)
[2020-01-15] MEDS ORDERED: TAMSULOSIN HCL0.4 MG PO (16:32)
[2020-01-15] MEDS ORDERED: TOPROL XL25 MG PO (16:33)
[2020-01-15] MEDS ORDERED: ENTRESTO 24-261 TAB PO (16:33)
[2020-01-15] MEDS ORDERED: ATORVASTATIN CA40 MG PO (16:34)
[2020-01-15] MEDS ORDERED: MEGA BIOTIN10 MG PO (16:40)
--- NOTE | 2020-01-15 16:53 | NUR ---
REPORT REC FROM LYNN FELIPE
--- NOTE | 2020-01-15 16:54 | NUR ---
REPORT CALLED TO ELDER FELIPE ON [facility]
--- NOTE | 2020-01-15 17:00 | NUR ---
PT TO ROOM 272 VIA WHEELCHAIR. PT TOLERATED TRANFER WELL.
--- NOTE | 2020-01-15 17:15 | NUR ---
PT ARRIVED TO MD VIA ACCOMPANIED BY LYNN FELIPE. A&O X3. NO DISTRESS NOTED. +1 PITTING EDEMA NOTED TO BLE. BLE COLD TO TOUCH, ACYANOTIC, PT ABLE TO MOVE ALL TOES WITH NO DIFFICULTY. DOPPLER US USED TO PEDAL PULSES, PULSES WEAK. 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 [facility] OFFERED BUT REFUSED. ORIENTED PT TO ROOM. BED SET AT LOWEST POSITION. CALL LIGHT IN REACH. CONTINUE TO MONITOR.
[2020-01-15 17:23] VITALS: BP 110/75
[2020-01-15 19:00] VITALS: BP 112/96
--- NOTE | 2020-01-15 19:15 | NUR ---
PT IN BED WATCHING TV, REPLACED CALL LIGHT NEEDED. ASSESSMENT COMPLETED AND URINAL EMPTIED OF 400CC OF CLEAR LIGHT YELLOW URINE.
--- NOTE | 2020-01-15 19:30 | NUR ---
PT PROVIDED TV DINNER AT THIS TIME. REPORTS HE WAS UNABLE TO EAT HIS DINNER TRAY, "DID NOT LIKE IT." NO S/O DISTRESS NOTED AT THIS TIME. PT UPRIGHT INBED EATING WATCHING TV.
--- NOTE | 2020-01-15 20:55 | NUR ---
PT MEDICATED ORDERS PROVIDE. PT TALKATIVE AND DENIES SOB AT THIS TIME, BUT REPORTS THAT IF HE GETS UP AND WALKS TO RESTROOM HE WILL BE OUT OF BREATH. I REMINDED PT TO CALL FOR STANDBY ASSISTANCE WHEN HE NEEDS TO AMBULATE. HE VERBALIZED UNDERSTANDING. CALL LIGHT IN HAND.
--- NOTE | 2020-01-15 22:09 | NUR ---
PT MEDICATED W/TYLENOL FOR MILD ELBOW PAIN. DENIES ANY OTHER DISTRESSES OR NEEDS. URINAL EMPTIED OF 250CC CLEAR LIGHT YELLOW URINE.
[2020-01-16] VITALS: BP 103/60
--- NOTE | 2020-01-16 02:45 | NUR ---
Urinal emptied at this time and pt assisted. Pt denies any other needs at this time. Call light w/in reach and pt encouraged to call as needs arise.
[2020-01-16 04:00] VITALS: BP 105/69
[2020-01-16 05:41] LABS: HEMOGLOBIN 11.8 g/dl (14.0-18.0); IMMATURE GRANULOCYTES 0.4 % (0.0-5.0); MEAN CELL VOLUME 104.7 fL CALC (80.0-100.0); MEAN CORPUSCULAR HGB 32.5 pG CALC (26.0-32.0); MEAN CORPUSCULAR HGB CONC 31.1 g/dL CAL (32.0-36.0); NEUT# 3.67 thou/uL (1.82-7.42); RED BLOOD COUNT 3.63 mill/uL (4.70-6.10); RED CELL DISTRI WIDTH 14.5 % (11.5-15.5)
[2020-01-16 06:22] LABS: ALKALINE PHOSPHATASE 81 u/l (38-126); ANION GAP 11 (6-22 (CALC)); BILIRUBIN, TOTAL 0.9 mg/dL (0.0-1.4); BUN 25 mg/dL (8-23); BUN/CREATININE RATIO 22 (12-20 (CALC)); CALCULATED LDLCHOLESTEROL 62 mg/dL (62-129 (CALC)); CARBON DIOXIDE 23 mmol/l (22-30); CHLORIDE 106 mmol/l (95-108); CHOLESTEROL HDL RATIO 3.7 (<4.4 (CALC)); CREATININE 1.1 mg/dL (0.7-1.3); GFR > 60 ML/MIN (>=60 (CALC)); GFR FOR AFR.AMER. > 60 ML/MIN (>=60 (CALC)); HDL CHOLESTEROL 34 mg/dL (>=40); MAGNESIUM 1.9 mg/dL (1.6-2.3); POTASSIUM 3.9 mmol/l (3.5-5.1); SGOT/AST 19 u/l (19-48); SODIUM 136 mmol/l (137-146); TOTAL CHOLESTEROL 123 mg/dl (0-199); TOTAL TRIGLYCERIDES 141 mg/dl (30-149); VLDL CHOLESTROL 28 mg/dl (0-38 (CALC))
[2020-01-16 06:27] LABS: TOTAL PROTEIN 5.2 g/dL (6.3-8.2)
--- NOTE | 2020-01-16 08:30 | NUR ---
PT. WITH DX. CHF EXACERBATION. A&O X3. ABLE TO VOICE NEEDS. WHEN HE AMBULATED FROM BATHROOM TO BED NOTED BILAT FEET LIGHT GRAYISH/PURPLE IN COLOR AND COLD PEDAL PULSES FAINT. BROUGHT TO THE ATTENTION TO THE PRACTITIONER IN THE ROOM. LUNGS CLEAR. BOWEL SOUNDS PRESENT. WILL MONITOR.
--- NOTE | 2020-01-16 09:36 | NUR ---
ED CALLED RE TELE READING PVC CHANGES AND SENT TELE STRIP. PT IS RESTING IN BED WITH NO S/S OF DISTRESS NOTED. NOTIFIED LORRI HINKLE ORDERS RECEIVED FOR EKG.
[2020-01-16 11:05] VITALS: BP 104/71
--- NOTE | 2020-01-16 11:30 | NUR ---
ED CALLED RE TELE READING AND TELE STRIP FAXED RUNNING [facility]. NOTIFIED DR. ANDERSON. ORDERS RECEIVED FOR EKG AND TROP LAB.
--- NOTE | 2020-01-16 11:58 | NUR ---
PT. HAD RUN OF PVC'S @ 936 AM. A SECOND EPISODE AT 11:29. MD'S AWARE: ÁNGELA TEE EKG ORDERED. NURSING YARD PILOT IS MAKING ARRANGEMENTS TO GET ENTRESTO FROM PHARMACY MD IS CALLING IT INTO PT HAD RUN OUT AT HOME. PT. HAD A SECOND RUN OF PVC'S OF WHICH MD IS AWARE. IV SITE CHANGED TO 22G RIGHT FOREARM. WILL MONITOR. DENIES CHEST PAIN.
--- NOTE | 2020-01-16 13:08 | NUR ---
NOTIFIED DR. ANDERSON RE: PT TROP LAB 0.012
--- NOTE | 2020-01-16 15:06 | NUR ---
SPOKE TO [facility] TO SET UP TRANSPORTATION. RELAYED PT. WEIGHT/HEIGHT, DX., AND ALL OTHER PERTINENT INFORMATION. DR. GALINDO WILL BE ACCCEPTING PT. WAS INFORMED BY [facility] THAT TRANSPORT WOULD ARRIVE IN 2 TO 3 HOURS FROM NOW. PT. WILL BE GOING TO BED 779-B AT [facility].
[2020-01-16 16:00] VITALS: BP 104/65
--- NOTE | 2020-01-16 18:54 | NUR ---
TRANSFERRED IN STABLE CONDITION VIA MEDICAL TRANSOIRT TO [facility] with staff. All belongings sent with pt.
--- NOTE | 2020-01-16 19:08 | NUR ---
CALLED THOROUGH REPORT TO AMARI MYERS AT [facility]. PT. GOING TP BED 779-B.
--- NOTE | 2020-01-18 05:21 | NUR ---
PT note- patient screened but being transferred
== END 2020-01-16 18:54 | disposition short-term general hospital (02) ==
LOC: ED 13:53 → ED-I 15:31 → ED 15:52 → MS2 15:53
PROVIDERS: Family Medicine; Nurse Practitioner; ADMIT Internal Medicine; ATTEND Internal Medicine
DX: R06.02 Shortness of breath (principal); I49.3 Ventricular premature depolarization; I48.91 Unspecified atrial fibrillation; I11.0 Hypertensive heart disease with heart failure; I50.9 Heart failure, unspecified; J44.9 Chronic obstructive pulmonary disease, unspecified; I25.10 Atherosclerotic heart disease of native coronary artery without angina pectoris; I25.5 Ischemic cardiomyopathy; G40.909 Epilepsy, unspecified, not intractable, without status epilepticus; E78.5 Hyperlipidemia, unspecified; E03.9 Hypothyroidism, unspecified; N40.0 Benign prostatic hyperplasia without lower urinary tract symptoms; F17.210 Nicotine dependence, cigarettes, uncomplicated; Z86.73 Personal history of transient ischemic attack (TIA), and cerebral infarction without residual deficits; Z95.5 Presence of coronary angioplasty implant and graft; Z95.0 Presence of cardiac pacemaker; Z20.828 Contact with and (suspected) exposure to other viral communicable diseases
CPT/HCPCS: G0378; J1650

== ENCOUNTER 2020-01-27 11:41 | Inpatient (IN) | payer MEDICARE, MEDICAID ==
[~2020-01-27] VITALS: Ht 172.7 cm; Wt 53.3 kg
[~2020-01-27 11:41] MED LIST changes: +MEGA BIOTIN10 MG PO
[2020-01-27 12:00] VITALS: BP 114/65
--- NOTE | 2020-01-27 12:30 | NUR ---
PT ARRIVES TO ICU-7 VIA WHEELCHAIR FROM [facility], EARLIER FROM DR CLANCY'S OFFICE, IS ALERT AND ORIENTED X 3. LUNGS ARE CLEAR, RA. ABDOMEN SOFT, NONTENDER, BM TODAY. SATS ARE HIGH 90s, NO SUPPLEMENTAL OXYGEN. ADMISSION ASSESSMENT COMPLETED WITHOUT DIFFICULTY. YUKI NOTIFIED THAT PT HAS BEEN ADMITTED.
[2020-01-27 12:42] LABS: HEMOGLOBIN 12.1 g/dl (14.0-18.0); MEAN CELL VOLUME 101.6 fL CALC (80.0-100.0); MEAN CORPUSCULAR HGB 32.4 pG CALC (26.0-32.0); MEAN CORPUSCULAR HGB CONC 31.8 g/dL CAL (32.0-36.0); RED BLOOD COUNT 3.74 mill/uL (4.70-6.10); RED CELL DISTRI WIDTH 14.4 % (11.5-15.5)
[2020-01-27 12:57] LABS: MAGNESIUM 2.2 mg/dL (1.6-2.3)
[2020-01-27 12:59] LABS: ALKALINE PHOSPHATASE 116 u/l (38-126); BUN 31 mg/dL (8-23); BUN/CREATININE RATIO 27 (12-20 (CALC)); CHLORIDE 102 mmol/l (95-108); CREATININE 1.1 mg/dL (0.7-1.3); GFR > 60 ML/MIN (>=60 (CALC)); GFR FOR AFR.AMER. > 60 ML/MIN (>=60 (CALC)); POTASSIUM 3.6 mmol/l (3.5-5.1); SGOT/AST 22 u/l (19-48); SODIUM 138 mmol/l (137-146)
[2020-01-27 13:10] LABS: ANION GAP 11 (6-22 (CALC)); BILIRUBIN, TOTAL 1.8 mg/dL (0.0-1.4); CARBON DIOXIDE 29 mmol/l (22-30)
[2020-01-27 13:11] LABS: TOTAL PROTEIN 6.6 g/dL (6.3-8.2)
[2020-01-27 13:49] LABS: URINE BILIRUBIN - DIPSTICK NEGATIVE (NEGATIVE); URINE BLOOD DIPSTICK NEGATIVE (NEGATIVE); URINE CLARITY CLEAR; URINE COLOR YELLOW; URINE GLUCOSE - DIPSTICK NEGATIVE (NEGATIVE); URINE KETONE NEGATIVE (NEGATIVE); URINE LEUK ESTERASE NEGATIVE (Negative); URINE NITRITE - DIPSTICK NEGATIVE (Negative); URINE PROTEIN - DIPSTICK NEGATIVE (NEG-TRACE); URINE UROBILINOGEN - DIPSTICK 0.2 E.U./dL (0.2)
[2020-01-27 14:00] VITALS: BP 100/74
[2020-01-27] MEDS ORDERED: AMIODARONE200 MG PO ×2 (14:35→14:39)
[2020-01-27] MEDS ORDERED: LEVO-T25 MCG PO (14:35)
[2020-01-27] MEDS ORDERED: ADULT ASPIRIN R81 MG PO (14:36)
[2020-01-27] MEDS ORDERED: ELIQUIS2.5 MG PO (14:37)
[2020-01-27] MEDS ORDERED: NITROSTAT0.4 MG PO (14:37)
[2020-01-27] MEDS ORDERED: ELIQUIS5 MG PO (14:39)
[2020-01-27 16:00] VITALS: BP 104/71
[2020-01-27 18:00] VITALS: BP 116/74
--- NOTE | 2020-01-27 18:15 | NUR ---
PT RESTS IN THE BED WITHOUT COMPLAINT OF SHORTNESS OF BREATH OR CHEST PAIN. PT SEEN BY BAILEE MADRID.
--- NOTE | 2020-01-27 19:15 | NUR ---
RECEIVED PT AWAKE AND ALERT WATCHING TV. NO DISTRESS NOTED, NO NEEDS AT THIS TIME. CALL VELEZ IN REACH.
[2020-01-27 20:00] VITALS: BP 109/70
--- NOTE | 2020-01-27 21:10 | NUR ---
PT SLIGHTLY ANXIOUS, DIFFICULT TO SLEEP. MEDICATED PER JUN.
[2020-01-27 22:00] VITALS: BP 97/67
--- NOTE | 2020-01-27 22:00 | NUR ---
PT WITH EYES CLOSED, NO DISTRESS NOTED. CALL VELEZ IN REACH.
[2020-01-28] VITALS (11 sets, daily range): BP systolic 85–105; BP diastolic 58–72
--- NOTE | 2020-01-28 | NUR ---
PT WITH EYES CLOSED, NO DISTRESS NOTED. CALL VELEZ IN REACH.
--- NOTE | 2020-01-28 02:00 | NUR ---
PT WITH EYES CLOSED NO DISTRESS NOTED. CALL VELEZ IN REACH.
--- NOTE | 2020-01-28 04:00 | NUR ---
LAB AT BEDSIDE, PT AWAKE AND ALERT.
[2020-01-28 05:00] LABS: ANION GAP 8 (6-22 (CALC)); BUN 33 mg/dL (8-23); BUN/CREATININE RATIO 31 (12-20 (CALC)); CARBON DIOXIDE 28 mmol/l (22-30); CHLORIDE 103 mmol/l (95-108); GFR > 60 ML/MIN (>=60 (CALC)); GFR FOR AFR.AMER. > 60 ML/MIN (>=60 (CALC)); POTASSIUM 3.2 mmol/l (3.5-5.1); SODIUM 136 mmol/l (137-146)
--- NOTE | 2020-01-28 05:58 | NUR ---
SPOKE TO SPOUSE, INFORMED OF CONDITON.
--- NOTE | 2020-01-28 06:20 | NUR ---
PT OPENED EYES WHEN RN ENTERED ROOM. NO RESP DISTRESS AT THIS TIME. SA02 99% CALL VELEZ IN REACH.
--- NOTE | 2020-01-28 06:45 | NUR ---
REPORT RECEIVED FROM PHILLIP FELIPE. CARE ASSUMED.
--- NOTE | 2020-01-28 07:20 | NUR ---
PT RESTING IN BED WITH EYES CLOSED. AROUSES TO VERBAL STIMULI. PT IS ALERT AND ORIENTED X3. SHIFT ASSESSMENT COMPLETED AT THIS TIME. CALL LIGHT IN REACH. WILL CONTINUE TO MONITOR.
--- NOTE | 2020-01-28 08:24 | NUR ---
PT O2 SATS DECLINED TO 84%. PT STATES THAT HE IS HAVING SOME SOB AT REST. PLACED PT ON O2 2L NC.
--- NOTE | 2020-01-28 08:55 | NUR ---
DR [place] AT BEDSIDE AT THIS TIME.
--- NOTE | 2020-01-28 09:52 | NUR ---
PT RESTING IN BED WATCHING TV. RESP ARE EVEN AND UNLABORED. NO DISTRESS NOTED. CALL LIGHT IN REACH. WILL CONTINUE TO MONITOR.
--- NOTE | 2020-01-28 10:34 | NUR ---
PT ASSISTED UP TO WASH UP DUE TO INCONTINENCE. LINENS CHANGE PT NOW RESTING IN RECLINER AT BEDSIDE.
--- NOTE | 2020-01-28 13:20 | NUR ---
RECEIVED ORDERS FOR PATIENT TO GO TO MED SURG WITH TELE. MED SURG ASSIGNED ROOM 273
--- NOTE | 2020-01-28 13:26 | NUR ---
PT AT BEDSIDE AT THIS TIME
--- NOTE | 2020-01-28 14:00 | NUR ---
PT SITTING UP IN CHAIR IN ROOM. RESP ARE EVEN AND UNLABORED. NO DISTRESS NOTED. CALL LIGHT IN SABA. WILL CONTINUE TO MONITOR.
--- NOTE | 2020-01-28 14:15 | NUR ---
REPORT CALLED TO Omer RAMIREZ LPN ON [facility] / [facility].
--- NOTE | 2020-01-28 14:35 | NUR ---
PT TO [facility] ROOM 273. PT TOLERATED TRANSFER WELL.
--- NOTE | 2020-01-28 14:40 | NUR ---
PT ARRIVED TO [facility] ROOM 273 VIA WHEELCHAIR ACCOMPAINED BY BEL HUNT. PT AMBULATED FROM WHEELCHAIR TO BED WITH STEADY GAIT. INTRODUCED SELF TO PT AND DISCUSSED POC. PT IS A/O X3. ASSESSMENT AND VITALS COMPLETED. BP 104/72, HR 70, O2 99% ON ROOM AIR. 2L NC PRN AT BEDSIDE. HEART RHYTHM IS NORMAL, TELE MONITORING APPLIED. ER CALLED TO VERIFY. PACEMAKER IN PLACE. BOWEL SOUNDS ARE ACTIVE, LAST REPORTED BM 01/26/2020. RADIAL PULSES STRONG. PEDAL PULSES ARE WEAK. #20G IN RAC FLUSHED, SITE APPEARS HEALTHY AND PATENT. SKIN IS WARM AND DRY WITH NO BREAK DOWN NOTED. CHUCK HOSE APPLIED. PT INFORMED ON NEED OF STOOL SAMPLE. PT VERBAILZED UNDERSTANDING. PT DENEIS ANY PAIN OR DISCOMFORTS AT THIS TIME. ALL SAFTEY PRECAUTIONS ARE IN PLACE WITH CALL LIGHT IN REACH. WILL CONTINUE TO MONITOR.
--- NOTE | 2020-01-28 16:34 | NUR ---
PT RESTING IN SEMI FOWLERS POSITION UPON ENTERING ROOM. PT INFORMED WRITTER OF BM. SPECIMEN TO BE SPENT TO LAB. PT IS A/O X3 . PT DENIES OF ANY NEEDS OR DISCOMFORTS AT THIS TIME. ALL SAFETY PRECAUTIONS ARE IN PLACE WITH CALL LIGHT IN REACH. WILL CONTINUE TO MONITOR
--- NOTE | 2020-01-28 20:00 | NUR ---
PATIENT ALERT, VEBRAL, ABLE TO MAKE NEEDS KNOWN--ABLE TO TOLERATE MEDS WELL WHOLE. CONT OF BOWEL AND BLADDER--URINE NOTED TO BE CORY IN COLOR--ABLE TO AMBULATE TO AND FROM BR WITH ASSIST OF WALKER AND ONE PERSON STANDBY ASSIST--WILL CALL FOR HELP WITH TRANSFERS AND AMBUKLATION. C/O PAIN TO RIGHT SHOULDER @ HS TO WHICH HE SAID HE DISLOCATED YEARS AGO AND NEVER HAD IT REPAIRED--TYLENOL EFFECTIVE. INTERNAL PACER IN PLACE @ 70. LS CLEAR--NO EDEMA NOTED. PIV SITE PATENT TO RIGHT AC AREA--FLUSHES WELL--SITE UNREMARKABLE. O2 USED @ 2L/MIN BNC WHEN AMBULATING. WILL CONT TO MONITOR FOR ANY FURTHER CHANGES.
--- NOTE | 2020-01-29 | NUR ---
PATIENT RESTING SOUNDLY IN BED WITH EYES CLOSED AT THIS TIME. NO APPARENT DISTRESS NOTED. TELEMETRY IN PLACE--PACED @ 70. KCL NOTED TO 3.2 EARLIER IN THE DAY-NEW ORDERS TO GIVE A ONE TIME DOSE OF 40MEQ OF POTASSIUM--GIVEN @ 10PM ORDERED. PIV SITE PATENT TO RIGHT AC AREA--FLUSHES WELL--SITE UNREMARKABLE. WILL CONT TO MONITOR FOR ANY FURTHER CHANGES.
[2020-01-29 00:08] VITALS: BP 102/65
--- NOTE | 2020-01-29 04:00 | NUR ---
PATIENT RESTING SOUNDLY IN BED WITH EYES CLOSED AT THIS TIME. NO APPARENT PAIN OR DISCOMFORT NOTED OR VOICED. TELEMETRY IN PLACE--PACED @ 72. PIV SITE PATENT TO RIGHT AC AREA--FLUSHES WELL--SITE UNREMARKABLE. WILL CONT TO MONITOR FOR ANY FURTHER CHANGES.
[2020-01-29 04:30] VITALS: BP 96/59
--- NOTE | 2020-01-29 08:05 | NUR ---
ASSESSMENT IS COMPLETED: IV SITE IS FREE FROM REDNESS OR EDEMA. HR IS REG,PULSES ARE STRONG X4,ABD IS SOFT WITH ACTIVE BS., BREATH SOUDNS ARE CLEAR,BILATERALLY., TELE MONITOR IN PLACE. CONTINUE TO OBSERVE AND MONITOR.
[2020-01-29 10:25] VITALS: BP 93/64
--- NOTE | 2020-01-29 12:45 | NUR ---
PT IS RELAXING IN BED WITH NO DISTRESS NOTED. IV SITE IS FREE FROM REDNESS OR EDEMA. CONTINEU TO OSBERVE AND MONITOR.
--- NOTE | 2020-01-29 14:58 | NUR ---
PT WAS INDEP ON BED MOB WITH VERBAL CUES ON USING UE TO ASSIST SELF. SIT TO STAND REQUIRED 2 ATTEMPTS WITH VCS ON CORRECT HAND PLACEMENT. PT WAS UNABLE TO STAND UP W/O THE US OF HANDS. IMMEDIATE STANDING BALANCE WITH RW WAS STABLE. PT AMBULATED IN THE HALLWAY ~50 FT X 2 WITH 4 REST BREAKS TAKEN NECESSARY. HE REPORTED SOB WHICH HE EASILY REBOUNDED FROM. HE RETURNED IN BED AT THE END OF ACTIVTIIES. CALL VELEZ PLACED WITHIN REACH. VS STABLE. [facility]: 15 POINTS PT WILL BENEFIT FROM HOME HEALTH P.T. FOR ENDURANCE, GEN CONDITIONING AND BALANCE TRAINING.
[2020-01-29 15:40] VITALS: BP 93/62
--- NOTE | 2020-01-29 16:45 | NUR ---
PT IS WATCHING TV. AND DRINKING COFFEE. NO DISTRESS NOTED. IV SITE IS FREE FROM REDNESS OR EDEMA.
--- NOTE | 2020-01-29 19:18 | NUR ---
PT SITTING UPRIGHT IN BED WITH LIGHTS AND TV ON. NO S/O DISTRESS NOTED. CALL LIGHT W/IN REACH. PT REQUESTING DRINK AND ICE/PROVIDED.
[2020-01-29 20:00] VITALS: BP 92/64
--- NOTE | 2020-01-29 20:45 | NUR ---
PT MEDICATED ORDERS PROVIDE AND DRINK PROVIDED. URINAL EMPTIED AT THIS TIME OF 200CC OF CLEAR YELLOW URINE. PT DENIES ANY OTHER NEEDS, CALL LIGHT IN HAND AND PT ENCOURAGED TO CALL NEEDS ARISE.
[2020-01-30] VITALS: BP 96/65
[2020-01-30 04:05] VITALS: BP 99/66
--- NOTE | 2020-01-30 04:22 | NUR ---
PT SLEEPING, NO S/O DISTRESS NOTED.
--- NOTE | 2020-01-30 05:20 | NUR ---
PT MEDICATED ORDERS PROVIDE AND W/TYLENOL FOR MILD R.SHOULDER PAIN. DENIES ANY FURTHER NEEDS.
--- NOTE | 2020-01-30 07:20 | NUR ---
PT. A&O X3. ABLE TO VOICE NEEDS. DENIES PAIN AT THIS TIME. LUNG SOUNDS DIMINISHED. O2 SAT 100% PRESENTLY RESTING IN BED. STATES HE "HAD A BM YESTERDAY" AND DOUBLTS HE WILL HAVE ONE TODAY. WALKER AT BEDSIDE FOR AMBULATION THAT BELONGS TO PT. 20G RAC PATENT/FLUSHES WELL. WILL MONITOR.
--- NOTE | 2020-01-30 10:14 | NUR ---
RAPID COVID SWAB APPROVED BY AMADOU. SAMPLE OBTAINED FROM BOTH NARES. SAMPLE TAKEN TO LAB. PT TOLERATED WELL.
[2020-01-30 10:55] VITALS: BP 113/65
--- NOTE | 2020-01-30 11:40 | NUR ---
PT. TO BE DISCHARGED TO [facility] IN [place] FOR REHAB TODAY. UP WALKING SLOWLY WITH PHYSICAL THERAPY IN ARENAS WITH WALKER TOLERATING FAIR. NO COMPLAINT VOICED. WILL MONITOR.
--- NOTE | 2020-01-30 11:43 | NUR ---
PT Note Patient identified by name and date of Alert, coherenta and cooperative PT Management 1. AROME of the UE x 10 repetitions 2. AROME of the LE x 10 repetitions 3. Supine to sit and sit to supine x 2 repetitions 4. Sit to stand x 4 repetitions 5. Standing balance/tolerance x 3-5 minutes 6. Gait training with rolling walker x 40 feet x 3 rounds with verbal cues and tactile cues for safety. Patient tolerated management well. Good walking tolerance observed. Minimal to no shortness of breath observed during therapeutic exercises including gait training. Patient's call button left within patient's each prior to leavin the patient's room. AM-PAC Score: 16
--- NOTE | 2020-01-30 13:00 | NUR ---
Discharge instructions given. Patient verbalizes understanding of same. Discharged in stable condition via Medical Transport to [facility] with staff. All belongings sent with pt.
== END 2020-01-30 13:13 | DRG 292 ==
LOC: ICU 11:41 → MS2 11:41
PROVIDERS: ADMIT Internal Medicine; ATTEND Internal Medicine
DX: I11.0 Hypertensive heart disease with heart failure (principal); Z68.1 Body mass index [BMI] 19.9 or less, adult; I50.43 Acute on chronic combined systolic (congestive) and diastolic (congestive) heart failure; I25.10 Atherosclerotic heart disease of native coronary artery without angina pectoris; I25.5 Ischemic cardiomyopathy; J44.9 Chronic obstructive pulmonary disease, unspecified; I48.0 Paroxysmal atrial fibrillation; E78.5 Hyperlipidemia, unspecified; E03.9 Hypothyroidism, unspecified; R63.4 Abnormal weight loss; N40.0 Benign prostatic hyperplasia without lower urinary tract symptoms; F17.200 Nicotine dependence, unspecified, uncomplicated; Z95.5 Presence of coronary angioplasty implant and graft; Z86.73 Personal history of transient ischemic attack (TIA), and cerebral infarction without residual deficits; Z95.810 Presence of automatic (implantable) cardiac defibrillator; Z20.828 Contact with and (suspected) exposure to other viral communicable diseases

== ENCOUNTER 2020-02-15 13:46 | Inpatient (IN) | payer MEDICARE, MEDICAID ==
[~2020-02-15] VITALS: Ht 172.7 cm; Wt 59.5 kg
[~2020-02-15 13:46] MED LIST changes: +ADULT ASPIRIN R81 MG PO; +LEVO-T25 MCG PO; +NITROSTAT0.4 MG PO
--- NOTE | 2020-02-15 13:46 | NUR ---
PT TO ROOM VIA EMS
[2020-02-15 14:18] LABS: HEMATOCRIT 35.3 % (39.0-50.0); HEMOGLOBIN 11.2 g/dl (14.0-18.0); IMMATURE GRANULOCYTES 0.7 % (0.0-5.0); MEAN CELL VOLUME 104.1 fL CALC (80.0-100.0); MEAN CORPUSCULAR HGB CONC 31.7 g/dL CAL (32.0-36.0); NEUT# 10.37 thou/uL (1.82-7.42); RED BLOOD COUNT 3.39 mill/uL (4.70-6.10); RED CELL DISTRI WIDTH 15.3 % (11.5-15.5)
--- NOTE | 2020-02-15 14:46 | NUR ---
PT SITTING IN BED AWAITING RESULTS. VSS. PT HAS A NON-PRODUCTIVE COUGH WITH CLEAR LUNG SOUNDS. WILL CONTINUE TO MONITOR.
[2020-02-15 15:20] LABS: ALKALINE PHOSPHATASE 117 u/l (38-126); BILIRUBIN, TOTAL 1.9 mg/dL (0.0-1.4); BUN 28 mg/dL (8-23); BUN/CREATININE RATIO 25 (12-20 (CALC)); C-REACTIVE PROTEIN 1.8 mg/dL (0-0.9); CARBON DIOXIDE 23 mmol/l (22-30); CHLORIDE 102 mmol/l (95-108); CREATININE 1.1 mg/dL (0.7-1.3); GFR > 60 ML/MIN (>=60 (CALC)); GFR FOR AFR.AMER. > 60 ML/MIN (>=60 (CALC)); SODIUM 137 mmol/l (137-146); TOTAL PROTEIN 7.1 g/dL (6.3-8.2)
[2020-02-15 15:22] LABS: ANION GAP 16 (6-22 (CALC)); POTASSIUM 4.2 mmol/l (3.5-5.1); SGOT/AST 42 u/l (19-48)
--- NOTE | 2020-02-15 15:46 | NUR ---
PT IS SITTING UP IN BED AWAITING CT RESULTS. IV ABX ARE INFUSING WITH NO ISSUES. VSS. WILL CONTINUE TO MONITOR.
--- NOTE | 2020-02-15 16:40 | NUR ---
REPORT GIVEN TO [facility]ON STAPLES ON MED SURG.
--- NOTE | 2020-02-15 16:46 | NUR ---
PT TRANSPORTED TO [facility] 263. CARE RELINQUISHED TO [facility]. Admission Note Report Given to: BON Transported by: X Wheelchair Stretcher Transported with: X Nurse Transporter X Patent IV O2 X Build And Release Manager Location: ICU X [facility]
[2020-02-15 16:59] VITALS: BP 104/76
--- NOTE | 2020-02-15 16:59 | NUR ---
PT ARRIVED TO [facility] ROOM 263 VIA WHEELCHAIR ACCOMPAINED BY ER STAFF. PT AMBULATED FROM WHEELCHAIR TO BED WITH LITTLE DIFFICULTY. INTRODUCED SELF TO PT AND DISCUSSED POC. PT IS A/O X3. ASSESSMENT AND VITALS COMPLETED. RESPIRATIONS ARE EVEN AND UNLABORED ON ROOM AIR.HEART RHYTHM IS NORMAL WITH TELE IN PLACE. BOWEL SOUNDS ARE ACTIVE IN ALL QUADRANTS, LAST REPORTED BM 02/15/2020. RADIAL PULSES STRONG. PEDAL PULSES WEAK. 2+ EDEMA NOTED IN BLE. #20G IN LAC FLUSHED, SITE APPEARS HEALTHY AND PATENT. PT PRESENTS WITH NON PRODUCTIVE COUGH. PT DENIES ANY ALLERGIES, ALLERGY BAND APPLIED. HOME MEDICATIONS PUT INTO PHARMACY BAG TO SEND TO PHARMACY. ENTRESTO HELD FOR PHARMACY APPROVAL. PT ORIENTED TO CALL LIGHT SYSTEM AND ROOM. PT DENEIS ANY ADDITIONAL NEEDS AT THIS TIME. ALL SAFETY PRECAUTIONS ARE IN PLACE WITH CALL LIGHT IN REACH.W ILL CONTINUE TO MONITOR.
[2020-02-15 19:00] VITALS: BP 105/67
--- NOTE | 2020-02-15 20:00 | NUR ---
PATIENT RESTING IN BED AT THIS TIME-AWAKE ALERT AND ORIENTEDX3. PATIENT STATES THAT HE JUST GOT OUT OF REHAB A COUPLE OF DAYS AGO AND HAD TO COME BACK IN FOR SOB. PATIENT WITH TELE MONITOR IN PLACE. IV SITE TO LAC INTACT AND IS HEALTHY AT THIS TIME. SADIA FEET ARE SWOLLEN-ELEVATED BLE ON PILLOWS. SAFETY PRECAUTIONS REINFORCED. CALL LIGHT IN REACH. WILL CONT TO MONITOR.
[2020-02-16] VITALS: BP 101/63
--- NOTE | 2020-02-16 | NUR ---
PATIENT APPEARS SLEEPING AT THIS TIMEWITH HOB ELEVATED AND EYES CLOSED. RESPS ARE EVEN AND UNLABORED. TELE MONITOR IN PLACE. CALL LIGHT IN REACH. WILL CONT TO MONITOR.
[2020-02-16 04:00] VITALS: BP 106/67
--- NOTE | 2020-02-16 04:59 | NUR ---
PATIENT APPEARS SLEEPING WITH HOB ELEVATED AND EYES CLOSED. RESPS ARE EVEN AND UNLABORED. TELE MONITOR IN PLACE. SALINE LOCK TO LAC INTACT. CALL LIGHT IN REACH. WILL CONT TO MONITOR.
[2020-02-16 06:01] LABS: HEMATOCRIT 36.3 % (39.0-50.0); HEMOGLOBIN 11.4 g/dl (14.0-18.0); IMMATURE GRANULOCYTES 0.6 % (0.0-5.0); MEAN CELL VOLUME 103.4 fL CALC (80.0-100.0); MEAN CORPUSCULAR HGB 32.5 pG CALC (26.0-32.0); MEAN CORPUSCULAR HGB CONC 31.4 g/dL CAL (32.0-36.0); NEUT# 7.55 thou/uL (1.82-7.42); RED BLOOD COUNT 3.51 mill/uL (4.70-6.10); RED CELL DISTRI WIDTH 15.4 % (11.5-15.5)
[2020-02-16 06:29] LABS: ALKALINE PHOSPHATASE 106 u/l (38-126); ANION GAP 10 (6-22 (CALC)); BILIRUBIN, TOTAL 1.4 mg/dL (0.0-1.4); BUN 27 mg/dL (8-23); BUN/CREATININE RATIO 23 (12-20 (CALC)); CALCULATED LDLCHOLESTEROL 54 mg/dL (62-129 (CALC)); CARBON DIOXIDE 27 mmol/l (22-30); CHLORIDE 105 mmol/l (95-108); CHOLESTEROL HDL RATIO 3.5 (<4.4 (CALC)); CREATININE 1.2 mg/dL (0.7-1.3); GFR 60 ML/MIN (>=60 (CALC)); GFR FOR AFR.AMER. > 60 ML/MIN (>=60 (CALC)); HDL CHOLESTEROL 26 mg/dL (>=40); MAGNESIUM 2.1 mg/dL (1.6-2.3); POTASSIUM 3.9 mmol/l (3.5-5.1); SGOT/AST 20 u/l (19-48); SODIUM 138 mmol/l (137-146); TOTAL CHOLESTEROL 92 mg/dl (0-199); TOTAL TRIGLYCERIDES 58 mg/dl (30-149); VLDL CHOLESTROL 12 mg/dl (0-38 (CALC))
[2020-02-16 06:32] LABS: ALBUMIN 2.9 g/dL (3.2-5.0); TOTAL PROTEIN 5.3 g/dL (6.3-8.2)
[2020-02-16 07:57] VITALS: BP 101/68
--- NOTE | 2020-02-16 07:57 | NUR ---
RECIEVED REPORT FROM MATTEO ELLIS.PT IS A/O X3. PT RESTING IN SEMI FOWLERS POSITION UPON ENTERING ROOM. INTRODUCED SELF TO PT DISCUSSED POC. RESPIRATIONS ARE SHALLOW, PT SATING 95%ON ROOM AIR, PRN O2 AT BEDSIDE IF NEED. HEART RHYTHM IS NORMAL WITH TELE IN PLACE, PACED 72. BOWEL SOUNDS ARE ACTIVE IN ALL QUADRANTS, LAST REPORTED BM 02/14/2020. #20G EMS FLUSHED, SITE APPEARS HEALTHY AND PATENT. WRITTER EDUCATED PT ON NEED FOR CHANGING PT, PT VERBALIZED UNDERSTANDING. RADIAL PULSES STRONG. PEDAL PULSES WEAK. 2+ EDEMA IN BILATERAL LOWER FEET. FEET ELVATED TO ASSIST. PT DENIES OF ANY PAIN OR DISCOMFORTS AT THIS TIME. ALL SFAETY PRECAUTIONS ARE IN P[LACE WITH CALL LIGHT IN REACH. WILL CONTINUE TO MONITOR.
--- NOTE | 2020-02-16 07:59 | NUR ---
DR [place] AT BEDSIDE
--- NOTE | 2020-02-16 12:21 | NUR ---
PT RESTING IN SEMI FOWLERS POSITION WATCHING TV. RESPIATIONS ARE EVEN AND UNLABORED WITH NO SIGNS OF DISTRESS NOTED. PT DNIES ANY PAIN. ALL ASAFTEY PRECAUTIONS ARE IN PLACE WIHT CALL LIGHT IN REACH. WILL CONTINUE TO MONITOR
[2020-02-16 15:00] VITALS: BP 95/59
--- NOTE | 2020-02-16 15:52 | NUR ---
PT RESTING IN SEMI FOWLERS POSITION WATCHING TV. RESPIRATIONS ARE EVEN AND UNLABORED ON ROOM AIR. 2L NC AT BEDSIDE PRN. PT DENIES ANY PAIN OR DISCOMFORTS AT THIS TIME.TELE MONITORING IN PLACE. ALL SAFETY PRECAUTIONS ARE IN PLACE WITH CALL LIGHT IN REACH. WILL CONTINUE TO MONITOR
--- NOTE | 2020-02-16 17:35 | NUR ---
ATTEMPTED TO START NEW IV X2. NO NEW IV ATTEMPTED. BREATHING IS SHALLOW, WHEEZING PRESENT. ORDER FOR 40MG LASIX X1 DOSE. WAITING FOR PHARMACY TO VERIFY
--- NOTE | 2020-02-16 18:37 | NUR ---
40 MG LASIX X1 DOSE ADMINISTERED. #20G IN LAC LEAKING. REATTEMPTED BY WRITTER TO START NEW IV #22G IN RAC. PT TOELRATED WELL. RESPIRATION REMAIN SHALLOW. PRN O2 AT BEDSIDE. PT DENIES ANY ADDITIONAL NEEDS AT THIS TIME. ALL SFAETY PRECAUTIONS ARE IN PLACE WIHT CALL LIGHT IN REACH. WILL CONTINUE TO MONITOR
[2020-02-16 19:00] VITALS: BP 98/61
--- NOTE | 2020-02-16 19:30 | NUR ---
PATIENT RESTING IN BED IN HIGH FOWLERS POSITION. PATIENT IS AWAKE ALERT AND ORIENTEDX3. PATIENT IS WEAK AND SOB AT REST. O2 SAT-98% ON RA. VOIDING QS YELLOW URINEIN URINAL. PATIENT WITH NON-PRODUCTIVE COUGH. BLE REMAIN SWOLLEN-ELEVATED BOTH FEET IN PILLOWS. TELE MONITOR IN PLACE. SALINE LOCK TO RAC INTACT AND HEALTHY AT THIS TIME. SAFETY PRECAUTIONS IN PLACE.CALL LIGHT IN REACH. WILL CONT TO MONITOR.
[2020-02-16 21:02] VITALS: BP 96/62
[2020-02-17] VITALS (7 sets, daily range): BP systolic 89–100; BP diastolic 61–73
--- NOTE | 2020-02-17 00:09 | NUR ---
PATIENT RESTING IN BED POSITIONED ON LEFT SIDE WITH HOB SLIGHTLY ELEVATED. APPEARS SLEEPING WITH EYES CLOSED. TELE MONITOR IN PLACE. CALL LIGHT IN REACH. WILL CONT TO MONITOR.
--- NOTE | 2020-02-17 03:30 | NUR ---
PATIENT RESTING IN BED AT THIS TIME-APPEARS SLEEPING AT THIS TIME. TELE MONITOR IN PLACE. CALL LIGHT IN REACH. WILL CONT TO MONITOR.
[2020-02-17 05:31] LABS: HEMATOCRIT 36.6 % (39.0-50.0); HEMOGLOBIN 11.2 g/dl (14.0-18.0); MEAN CELL VOLUME 104.6 fL CALC (80.0-100.0); MEAN CORPUSCULAR HGB CONC 30.6 g/dL CAL (32.0-36.0); RED BLOOD COUNT 3.5 mill/uL (4.70-6.10); RED CELL DISTRI WIDTH 15.6 % (11.5-15.5)
[2020-02-17 05:54] LABS: ANION GAP 12 (6-22 (CALC)); BUN 32 mg/dL (8-23); BUN/CREATININE RATIO 26 (12-20 (CALC)); CARBON DIOXIDE 30 mmol/l (22-30); CHLORIDE 101 mmol/l (95-108); CREATININE 1.2 mg/dL (0.7-1.3); GFR 60 ML/MIN (>=60 (CALC)); GFR FOR AFR.AMER. > 60 ML/MIN (>=60 (CALC)); POTASSIUM 4.3 mmol/l (3.5-5.1); SODIUM 139 mmol/l (137-146)
--- NOTE | 2020-02-17 07:36 | NUR ---
PATIENT IN BED AT THIS TIME ALERT AND ORIENTED X 3 CALL LIGHT NEAR. PATIENT DENIES ANY PAIN AND STATES PAIN IS A 0 OUT OF A PAIN SCALE OF 0-10. PATIENT EXHIBITS DRY NON PRODUCTIVE COUGH. PATIENT HAS BILATERAL 2+ FEET SWELLING AND ARE ELEVATED UP ON TWO PILLOWS AT THIS TIME. PATIENT DENIES ALL OTHER NEEDS.
--- NOTE | 2020-02-17 08:20 | NUR ---
AT BEDSIDE DISCUSSING POC.
--- NOTE | 2020-02-17 13:08 | NUR ---
PATIENT IN BED DENIES ANY NEEDS AT THIS TIME. ALL SAFETY MEASURES ARE IN PLACE.
--- NOTE | 2020-02-17 15:35 | NUR ---
PATIENT IN BED AT THIS TIME CALL LIGHT WITHIN REACH SIDERAILS UP X2 DENIES PAIN OR ANY NEEDS AT THIS TIME.
--- NOTE | 2020-02-17 19:00 | NUR ---
REPORT RECEIVED FROM Akilah ZHANG RN, CARE OF PT ASSUMED AT THIS TIME.
--- NOTE | 2020-02-17 20:15 | NUR ---
PT SITTING UP IN RECLINER. PHYSICAL ASSESMENT COMPLETE. +2 PITTING EDEMA TO BLE, LUNG SOUNDS COARSE, BREATHING UNLABORED AND SPO2 >93% ON ROOM AIR. PLAN OF CARE REVIEWED. PT VERBALIZES UNDERSTANDING AND DENIES QUESTIONS. SCHEDULED MEDICATIONS ADMINISTERED, SEE E-MAR. LASIX RESCHEDULED TO 0600 AND 1800 FOR PT COMFORT, OKAYED BY Derik TSAI APRN, SEE WRITTEN ORDER IN CHART. GINGERALE PROVIDED PER PTS REQUEST. PT DENIES FURTHER NEEDS ATTHIS TIME. CALL VELEZ WITHIN REACH. AGREES TO CALL PRN.
[2020-02-18 00:08] VITALS: BP 104/72
--- NOTE | 2020-02-18 00:15 | NUR ---
PT APPEARS TO BE SLEEPING COMFORTABLY, LAYING IN BED, EYES CLOSED, RESPIRATIONS REGULAR AND UNLABORED. NO APPARENT DISTRESS. CALL VELEZ REMAINS WITHIN REACH.
[2020-02-18 03:38] VITALS: BP 108/73
--- NOTE | 2020-02-18 05:26 | NUR ---
HEMODYNAMICS STABLE. PHYSICAL ASSESMENT REMAINS WITHIN BASELINE WITH NO SIGNIFICANT CHANGES. PT RESTING IN BED COMFORTABLY. DENIES ANY FURTHER NEEDS AT THIS TIME. CALL VELEZ WITHIN REACH, AGREES TO CALL PRN.
[2020-02-18 06:04] LABS: HEMATOCRIT 36.8 % (39.0-50.0); HEMOGLOBIN 11.3 g/dl (14.0-18.0); MEAN CORPUSCULAR HGB 31.9 pG CALC (26.0-32.0); MEAN CORPUSCULAR HGB CONC 30.7 g/dL CAL (32.0-36.0); RED BLOOD COUNT 3.54 mill/uL (4.70-6.10); RED CELL DISTRI WIDTH 15.2 % (11.5-15.5)
[2020-02-18 06:21] LABS: ANION GAP 11 (6-22 (CALC)); BUN 33 mg/dL (8-23); BUN/CREATININE RATIO 37 (12-20 (CALC)); CARBON DIOXIDE 29 mmol/l (22-30); CHLORIDE 102 mmol/l (95-108); CREATININE 0.9 mg/dL (0.7-1.3); GFR > 60 ML/MIN (>=60 (CALC)); GFR FOR AFR.AMER. > 60 ML/MIN (>=60 (CALC)); MAGNESIUM 2.2 mg/dL (1.6-2.3); POTASSIUM 3.9 mmol/l (3.5-5.1); SODIUM 137 mmol/l (137-146)
[2020-02-18 07:39] VITALS: BP 104/71
--- NOTE | 2020-02-18 07:39 | NUR ---
PATIENT IN BED AT THIS TIME ALERT AND ORIENTED DENIES ANY NEEDS AND STATES HE HAS NO PAIN. CALL LIGHT IN REACH SIDERAILS UP X 2 CALL LIGHT NEAR.
--- NOTE | 2020-02-18 08:13 | NUR ---
AT BEDSIDE DISCUSSING POC.
[2020-02-18 10:40] VITALS: BP 99/63
--- NOTE | 2020-02-18 12:00 | NUR ---
PATIENT SITTING AT BEDSIDE EATING LUNCH DENIES ANY PAIN OR NEEDS AT THIS TIME. CALL LIGHT NEAR SIDERAILS UP X 2. PATIENT EXHIBITS DRY COUGH AT THIS TIME.
[2020-02-18 15:35] VITALS: BP 106/70
--- NOTE | 2020-02-18 15:46 | NUR ---
PATIENT LAYING IN BED AT THIS TIME DENIES ANY NEEDS. STATES HAVING NO PAIN. ALL SAFETY MEASURES ARE IN PLACE AT THIS TIME.
--- NOTE | 2020-02-18 19:00 | NUR ---
REPORT RECEIVED FROM Akilah ZHANG RN, CARE OF PT ASSUMED AT THIS TIME.
[2020-02-18 19:08] VITALS: BP 104/72
--- NOTE | 2020-02-18 20:40 | NUR ---
PT RESTING IN BED, PT SEEMS DEPRESSED. REPORTS HE FEELS COLD AND CANT GET WARM. PT IS COOL TO TOUCH. EXTRA BLANKETS PROVIDED. PHYSICAL ASSESMENT COMPLETE. LUNG SOUNDS COARSE, NON-PRODUCTIVE COUGH, RESPIRATIONS UNLABORED AT REST. PT REPORTS SOB WITH EXERTION. PT WEARING O2 @ 2L VIA NC. +1 PITTING EDEMA BLE. TELE #[id number], PT IS PACED. ENSURE AND GINGERALE PROVIDED PER PTS REQUEST. 700ML LIGHT YELLOW, CLEAR URINE EMPTIED FROM URINAL. PLAN OF CARE REVIEWED. PT VERBALIZES UNDERSTANDING AND DENIES QUESTIONS. PT DENIES FURTHER NEEDS AT THIS TIME. CALL VELEZ WITHIN REACH, AGREES TO CALL PRN.
[2020-02-19 00:08] VITALS: BP 85/57
--- NOTE | 2020-02-19 00:40 | NUR ---
PT APPEARS TO BE SLEEPING COMFORTABLY. LAYING IN BED WITH EYES CLOSED. RESPIRATIONS REGULAR AND UNLABORED. NO APPARENT DISTRESS. CALL VELEZ REMAINS WITHIN REACH.
[2020-02-19 03:58] VITALS: BP 102/72
--- NOTE | 2020-02-19 05:30 | NUR ---
REPORTED 0000 AND 0400 TO Akilah ROMERO APRN. NIBP @ 0000 WAS 85/67mm/Hg AND @ 0400 102/72mm/Hg. PT ASYMPTOMATIC FOR HYPOTENSION. REQUESTING CLARIFICATION ON WETHER OR NOT TO HOLD AM LASIX DOSE. PER Akilah ROMERO APRN ADMINISTER LASIX 40MG IV PREVIOUSLY ORDERED. SEE E-MAR FOR ADMINISTRATION.
[2020-02-19 05:36] LABS: HEMATOCRIT 35.8 % (39.0-50.0); HEMOGLOBIN 11.6 g/dl (14.0-18.0); MEAN CELL VOLUME 101.4 fL CALC (80.0-100.0); MEAN CORPUSCULAR HGB 32.9 pG CALC (26.0-32.0); MEAN CORPUSCULAR HGB CONC 32.4 g/dL CAL (32.0-36.0); RED BLOOD COUNT 3.53 mill/uL (4.70-6.10); RED CELL DISTRI WIDTH 15.1 % (11.5-15.5)
[2020-02-19 06:05] LABS: ANION GAP 9 (6-22 (CALC)); BUN 35 mg/dL (8-23); BUN/CREATININE RATIO 36 (12-20 (CALC)); CHLORIDE 96 mmol/l (95-108); GFR > 60 ML/MIN (>=60 (CALC)); GFR FOR AFR.AMER. > 60 ML/MIN (>=60 (CALC)); MAGNESIUM 2.2 mg/dL (1.6-2.3); POTASSIUM 3.7 mmol/l (3.5-5.1); SODIUM 137 mmol/l (137-146)
[2020-02-19 06:06] LABS: CARBON DIOXIDE 36 mmol/l (22-30)
[2020-02-19 07:58] VITALS: BP 102/68
--- NOTE | 2020-02-19 07:58 | NUR ---
RECIEVED REPORT FROM MATTEO BRAVO. PT RESTING IN SEMI FOWLERS POSITION UPON ENTERING ROOM. INTRODUCED SELF TO PT AND DISCUSSED POC. PT IS A/O X3. ASSESSMENT AND VITALS OBTAINED. RESPIRATIONS ARE EVEN AND UNLABORED ON ROOM AIR. HEART RHYTHM NORMAL WITH TELE OIN PLACE. BOWEL SOUNDS ARE ACTIVE IN ALL QUADRANTS, LST RPORETD BM 02/17/20. #22G IN LAC FLUSHED, SITE APPEARS HEALTHY AND PATENT. RADIAL PULSES STRONG, PEDAL PULSES WEAK. 1+ EDEMA NOTED TO BLE, ELEVATED WITH PILLOWS TO ASSIST. PT DENIES ANY PAIN OR DISCOMOFRTS AT THIS ITME. ALL SFAETY PRECAUTIONS ARE IN PLACE WITH CALL LIGHT IN REACH. WILL CONTINUE TO MONITOR
--- NOTE | 2020-02-19 08:26 | NUR ---
DR [place] AT BEDSIDE DISUCSSING POC WITH PT
--- NOTE | 2020-02-19 10:07 | NUR ---
HOSPICE NURSE AT BEDSIDE DISCUSSING POC WITH PT
[2020-02-19 11:03] VITALS: BP 97/62
[2020-02-19] MEDS ORDERED: METOLAZONE2.5 MG PO (11:22)
[2020-02-19] MEDS ORDERED: OXY1 (11:24)
[2020-02-19] MEDS ORDERED: MIDODRINE HYDROC5 MG PO (11:24)
--- NOTE | 2020-02-19 11:38 | NUR ---
PT AT BEDSIDE
--- NOTE | 2020-02-19 11:44 | NUR ---
PT. Note Entered patient room as he was supine, patient agreed to participate in therapy as much as possible. supine>sit (independent) slow moving,sit>stand (independent) O2 stats fell below 90%, DC exercises and pt. peformed breathing techniques as seated bed side. waited couple minutes and O2 was still below 90%. Patient applied O2 at 2ML, informed nurse. Tray table and call saldivar by patient side. Entered patient room about 20 minutes later, O2 was above 90% but pateint was fatigued, did not want to particpate in therapy this time. tray table and call saldivar by patient side.
--- NOTE | 2020-02-19 12:40 | NUR ---
PT RESTING IN SEMI FOWLERS POSITION UPON ENTERING ROOM. RESPIRATIONS ARE EVEN AND UNLABORED WITH NO SIGNS OF DISTRESS NOTED. 2L NC AT BEDSIDE PRN. PT DENIES ANY PAIN OR DISCOMFORTS AT THSI TIME. ALL SAFETY PRECAUTIONS ARE IN PLACE WITH CALL LIGHT IN REACH. WILL CONTINUE TO MONITOR
--- NOTE | 2020-02-19 13:11 | NUR ---
PT EDUACTED ON DISCHARGE INSTRUCTIONS AND NEW MEDICATIONS ZAROXOLYN AND MIDODRINE. PT VERBALZIED UNDERSTANDING. IV REMOVED WITH CATHATER STILL INTACT. PT TOELRAT WELL. TRANSPORTATION TO BE SET UP. ALL SAFETY PRECAUTIONS ARE IN PLACE WITH CALL LIGHT IN REACH. WILL CONTINUE TO MONITOR
--- NOTE | 2020-02-19 13:55 | NUR ---
DISCHARGE ON HOLD. OXYEGN TO BE TRANSPORTATED TO HOME BEFORE DISCHARGE. HOSPICE NURSE WORKING ON GETTING OXYGEN
[2020-02-19 16:02] VITALS: BP 107/71
--- NOTE | 2020-02-19 16:11 | NUR ---
PT RESTING IN SEMI FOLWERS POSITION. RESPIRATIONS ARE SHALLOW. 2L NC AT BEDSIDE APPLIED.PT DENIES ANY PAIN OR DISCOMFORTS AT THIS TIME. AWAITING FOR OXYGEN DELIEVERY FOR DISCHARGE. ALL SFAETY PRECAUTIONS ARE IN PLACE WIHT CALL LIGHT IN REACH. WILL CONTINUE TO MONITOR
--- NOTE | 2020-02-19 16:46 | NUR ---
Discharge instructions given. Patient verbalizes understanding of same. Discharged in stable condition via Wheelchair to Home with family. All belongings sent with pt. PT DISCHARGED HOME WITH HOSPICE VIA WHEELCHAIR INM STABLE CONDITIONS ACCOMPAINED BY WRITTER AND SON. HOME MEDICATIONS RETURNED BACK PT FROM MED ROOM AND PHARMACY.
== END 2020-02-19 16:46 | disposition hospice, home (50) | DRG 293 ==
LOC: ED 13:46 → ED-I 15:34 → ED 15:46 → MS2 15:47
PROVIDERS: Family Medicine; Nurse Practitioner; ADMIT Internal Medicine; ATTEND Internal Medicine
DX: I11.0 Hypertensive heart disease with heart failure (principal); I50.43 Acute on chronic combined systolic (congestive) and diastolic (congestive) heart failure; I25.10 Atherosclerotic heart disease of native coronary artery without angina pectoris; I48.0 Paroxysmal atrial fibrillation; I25.5 Ischemic cardiomyopathy; J44.9 Chronic obstructive pulmonary disease, unspecified; E78.5 Hyperlipidemia, unspecified; E03.9 Hypothyroidism, unspecified; G40.909 Epilepsy, unspecified, not intractable, without status epilepticus; F17.200 Nicotine dependence, unspecified, uncomplicated; Z51.5 Encounter for palliative care; Z86.73 Personal history of transient ischemic attack (TIA), and cerebral infarction without residual deficits; Z95.5 Presence of coronary angioplasty implant and graft; Z95.0 Presence of cardiac pacemaker; Z79.01 Long term (current) use of anticoagulants; Z20.828 Contact with and (suspected) exposure to other viral communicable diseases

== ENCOUNTER 2020-03-26 04:05 | Emergency (ER) | payer MEDICARE, MEDICAID ==
[~2020-03-26] VITALS: Ht 172.7 cm; Wt 55.0 kg
[~2020-03-26 04:05] MED LIST changes: +METOLAZONE2.5 MG PO; +MIDODRINE HYDROC5 MG PO; +OXY1
[2020-03-26 05:20] LABS: HEMATOCRIT 37.9 % (39.0-50.0); HEMOGLOBIN 11.7 g/dl (14.0-18.0); IMMATURE GRANULOCYTES 0.5 % (0.0-5.0); MEAN CELL VOLUME 102.4 fL CALC (80.0-100.0); MEAN CORPUSCULAR HGB 31.6 pG CALC (26.0-32.0); MEAN CORPUSCULAR HGB CONC 30.9 g/dL CAL (32.0-36.0); NEUT# 5.46 thou/uL (1.82-7.42); RED BLOOD COUNT 3.7 mill/uL (4.70-6.10); RED CELL DISTRI WIDTH 14.6 % (11.5-15.5)
[2020-03-26 06:17] LABS: ALKALINE PHOSPHATASE 112 u/l (38-126); BILIRUBIN, TOTAL 1.2 mg/dL (0.0-1.4); BUN 25 mg/dL (8-23); BUN/CREATININE RATIO 21 (12-20 (CALC)); CHLORIDE 105 mmol/l (95-108); CREATININE 1.2 mg/dL (0.7-1.3); GFR 60 ML/MIN (>=60 (CALC)); GFR FOR AFR.AMER. > 60 ML/MIN (>=60 (CALC)); SGOT/AST 25 u/l (19-48); SODIUM 139 mmol/l (137-146)
[2020-03-26 06:43] LABS: ALBUMIN 3.9 g/dL (3.2-5.0); ANION GAP 15 (6-22 (CALC)); CARBON DIOXIDE 24 mmol/l (22-30); TOTAL PROTEIN 6.9 g/dL (6.3-8.2)
[2020-03-26 06:44] LABS: POTASSIUM 4.6 mmol/l (3.5-5.1)
[2020-03-26 07:12] VITALS: BP 93/64
== END 2020-03-26 07:58 | disposition home or self-care (01) ==
LOC: ED 04:05
PROVIDERS: Family Medicine
DX: I11.0 Hypertensive heart disease with heart failure (principal); I50.23 Acute on chronic systolic (congestive) heart failure; I25.5 Ischemic cardiomyopathy; I25.10 Atherosclerotic heart disease of native coronary artery without angina pectoris; E78.5 Hyperlipidemia, unspecified; J44.9 Chronic obstructive pulmonary disease, unspecified; E03.9 Hypothyroidism, unspecified; G40.909 Epilepsy, unspecified, not intractable, without status epilepticus; F17.200 Nicotine dependence, unspecified, uncomplicated; Z51.5 Encounter for palliative care; Z95.5 Presence of coronary angioplasty implant and graft; Z99.81 Dependence on supplemental oxygen; Z95.0 Presence of cardiac pacemaker

== ENCOUNTER 2020-08-06 10:36 | Observation (INO) | payer MEDICARE, MEDICAID ==
[~2020-08-06] VITALS: Ht 172.7 cm; Wt 53.0 kg
--- NOTE | 2020-08-06 10:50 | NUR ---
PT WHEELED INTO ROOM. PT INSTRUCTED IN PLAN OF CARE.
[2020-08-06 11:05] LABS: HEMATOCRIT 36.4 % (39.0-50.0); IMMATURE GRANULOCYTES 0.2 % (0.0-5.0); MEAN CORPUSCULAR HGB 32.6 pG CALC (26.0-32.0); MEAN CORPUSCULAR HGB CONC 31.6 g/dL CAL (32.0-36.0); NEUT# 4.34 thou/uL (1.82-7.42); RED BLOOD COUNT 3.53 mill/uL (4.70-6.10); RED CELL DISTRI WIDTH 16.3 % (11.5-15.5)
[2020-08-06 11:10] LABS: HEMOGLOBIN 11.5 g/dl (14.0-18.0); MEAN CELL VOLUME 103.1 fL CALC (80.0-100.0)
[2020-08-06 11:21] LABS: ALBUMIN 3.9 g/dL (3.2-5.0); ALKALINE PHOSPHATASE 87 u/l (38-126); ANION GAP 11 (6-22 (CALC)); BILIRUBIN, TOTAL 1.7 mg/dL (0.0-1.4); BUN 24 mg/dL (8-23); BUN/CREATININE RATIO 18 (12-20 (CALC)); CARBON DIOXIDE 30 mmol/l (22-30); CHLORIDE 102 mmol/l (95-108); CREATININE 1.4 mg/dL (0.7-1.3); GFR 50 ML/MIN (>=60 (CALC)); GFR FOR AFR.AMER. > 60 ML/MIN (>=60 (CALC)); POTASSIUM 3.6 mmol/l (3.5-5.1); SGOT/AST 20 u/l (19-48); SODIUM 139 mmol/l (137-146); TOTAL PROTEIN 6.8 g/dL (6.3-8.2)
--- NOTE | 2020-08-06 12:20 | NUR ---
PT CLEANED UP AFTER USING THE BATHROOM.
[2020-08-06 13:35] LABS: URINE BILIRUBIN - DIPSTICK NEGATIVE (NEGATIVE); URINE BLOOD DIPSTICK NEGATIVE (NEGATIVE); URINE COLOR YELLOW; URINE GLUCOSE - DIPSTICK NEGATIVE (NEGATIVE); URINE KETONE NEGATIVE (NEGATIVE); URINE LEUK ESTERASE NEGATIVE (NEGATIVE); URINE PH 6.5 (4.5-8.0); URINE PROTEIN - DIPSTICK NEGATIVE (NEG-TRACE); URINE SPECIFIC GRAVITY 1.015
[2020-08-06 13:37] LABS: URINE NITRITE - DIPSTICK NEGATIVE (Negative)
--- NOTE | 2020-08-06 14:00 | NUR ---
PT PEED 750 ML OF URINE.
--- NOTE | 2020-08-06 14:51 | NUR ---
PT ARRIVES TO ROOM 262 VIA STRETCHER FROM ER ALERT AND ORIENTED X 3, ACCOMPANIED BY KALIN FELIPE. PT IS ABLE TO TRANSFER HIMSELF TO BED WITHOUT DIFFICULTY. ADMISSION ASSESSMENT COMPLETED WITHOUT DIFFICULTY, PT SETTLES IN BED.
[2020-08-06 14:57] VITALS: BP 101/72
--- NOTE | 2020-08-06 16:19 | NUR ---
PT AT REST IN THE BED IN NO DISTRESS. PT PROVIDED ENSURE PER HIS REQUEST. CALLED TO TELL HER THAT HE HAS BEEN ADMITTED, VOICE MAIL LEFT. PT DENIES SOB.
[2020-08-06 19:16] VITALS: BP 99/75
--- NOTE | 2020-08-06 20:00 | NUR ---
PHYSICAL ASSESMENT COMPLETE. PT CURRENTLY DENIES PAIN OR DISCOMFORT. SCHEDULED MEDICATIONS AND PRN MEDICATION ADMINISTERED, SEE E-MAR. PT DENIES ANY NEEDS AT THIS TIME. PLAN OF CARE REVIEWED, PT DENIES QUESTIONS, VERBALIZES UNDERSTANDING. ITEMS WITHIN REACH, BED LOCKED IN LOW POSITION W/ BEDRAILS UP X2. CALL VELEZ WITHIN REACH, AGREES TO CALL PRN.
[2020-08-06 23:25] VITALS: BP 99/65
--- NOTE | 2020-08-07 00:05 | NUR ---
PT LAYING IN BED WITH EYES CLOSED, APPEARS TO BE SLEEPING, APPEARS COMFORTABLE AND IN NO DISTRESS. RESPIRATIONS REGULAR AND UNLABORED. ITEMS REMAIN WITHIN REACH, CALL VELEZ REMAINS WITHIN REACH. BED REMAINS LOCKED AND IN LOW POSITION WITH BEDRAILS UP X2. WILL CONTINUE TO MONITOR.
[2020-08-07 03:09] VITALS: BP 103/62
--- NOTE | 2020-08-07 04:00 | NUR ---
PT RESTING IN BED, NO SIGNS OF DISTRESS NOTED, RESP EVEN AND UNLABORED. PT VOICES NO NEEDS OR COMPLAINTS AT THIS TIME. CALL LIGHT IN REACH, CONTINUE TO MONITOR.
[2020-08-07 07:12] VITALS: BP 87/60
--- NOTE | 2020-08-07 07:55 | NUR ---
PT ALERT AND ORIENTED X 3. LUNGS CLEAR. BM YESTERDAY. NO SHORTNESS OF BREATH NOTED. PT EATING BREAKFAST AT THIS TIME.
[2020-08-07 09:40] VITALS: BP 93/58
--- NOTE | 2020-08-07 12:28 | NUR ---
PT SEEN BY DR NY THIS MORNING. PT HAD 6-MINUTE WALK ORDERED, BUT RESP THERAPIST FINDS PT ON 87% ON ROOM AIR, ASSURING THAT PT NEEDS OXYGEN AT HOME. PT REMAINS AT REST IN THE BED IN NO DISTRESS.
[2020-08-07 15:50] VITALS: BP 96/57
--- NOTE | 2020-08-07 18:00 | NUR ---
PT SEEN RESTING IN THE BED IN NO DISTRESS, NO COMPLAINTS OF SHORTNESS OF BREATH.
[2020-08-07 19:00] VITALS: BP 96/65
[2020-08-07 23:48] VITALS: BP 99/64
[2020-08-08 04:27] VITALS: BP 92/65
[2020-08-08 05:42] LABS: HEMATOCRIT 37.1 % (39.0-50.0); HEMOGLOBIN 11.7 g/dl (14.0-18.0); MEAN CELL VOLUME 101.6 fL CALC (80.0-100.0); MEAN CORPUSCULAR HGB 32.1 pG CALC (26.0-32.0); MEAN CORPUSCULAR HGB CONC 31.5 g/dL CAL (32.0-36.0); RED BLOOD COUNT 3.65 mill/uL (4.70-6.10); RED CELL DISTRI WIDTH 15.9 % (11.5-15.5)
[2020-08-08 06:07] LABS: ANION GAP 12 (6-22 (CALC)); BUN 32 mg/dL (8-23); BUN/CREATININE RATIO 29 (12-20 (CALC)); CARBON DIOXIDE 31 mmol/l (22-30); CHLORIDE 96 mmol/l (95-108); CREATININE 1.1 mg/dL (0.7-1.3); GFR > 60 ML/MIN (>=60 (CALC)); GFR FOR AFR.AMER. > 60 ML/MIN (>=60 (CALC)); MAGNESIUM 2.3 mg/dL (1.6-2.3); POTASSIUM 3.7 mmol/l (3.5-5.1); SODIUM 135 mmol/l (137-146)
--- NOTE | 2020-08-08 07:00 | NUR ---
RECIEVED REPORT FROM MATTEO PEARCE
[2020-08-08 07:05] VITALS: BP 96/62
--- NOTE | 2020-08-08 08:16 | NUR ---
PT SITTING IN HIGH FOWLERS POSITION UPON ENTERING ROOM. PT IS A/O X3. ASSESSMENT AND VITALS OBTAINED. BP 96/62, HR 80, O2 97% ON ROOM AIR. 2L NC AT BEDSIDE PRN. RESPIRATIONS ARE EVEN AND UNLABORED. LUNG SOUNDS CLEAR. HEART RHYTHM NORMAL WITH TELE IN PLACE, PACE PER ER MONITORING. BOWEL SOUNDS ARE ACTIVE. #18G IN RAC FLUSHED, SITE APPEARS HEALTHY AND PATENT. RADIAL PULSES STRONG. PEDAL PULSES WEAK. SKIN INTACT. PT DENIES OF ANY PAINS OR DISCOMFORTS AT THIS TIME. PT EDUCATED ON 1500 FLUIDS RESTRICTION AND STRICT I&O, PT VERBLAIZED UNDERSTANDING. PT DENIES OF ANY OTHER NEEDS. ALL SAFETY PRECAUTIONS ARE IN PLACE WITH CALL LIGHT IN REACH. WILL CONTINUE TO MONITOR.
--- NOTE | 2020-08-08 09:12 | NUR ---
DR OSULLIVAN AT BEDSIDE
[2020-08-08 10:00] VITALS: BP 103/65
--- NOTE | 2020-08-08 12:16 | NUR ---
PT RESTING IN HIGH FOLWERS POSITION WATCHING TV. RESPIRATIONS ARE EVEN AND UNLABORED WITH NO DISTRESS NOTED. 2L NC AT BEDSIDE PRN. #18G IN RAC REMAINS IN PLACE. TELE MONITORING IN PLACE, PACED PER ER MONITORING. PT DENIES OF ANY PAINS OR DISCOMFORTS. ALL SAFETY PRECAUTIONS ARE IN PLACE WITH CALL LIGHT IN REACH. WILL [id number] TO MONITOR.
--- NOTE | 2020-08-08 12:29 | NUR ---
RT AT [facility]
[2020-08-08] MEDS ORDERED: ALBUTEROL108 MCG/AC IN (13:23)
--- NOTE | 2020-08-08 13:42 | NUR ---
HOME O2 AT BEDSIDE
--- NOTE | 2020-08-08 14:14 | NUR ---
PT EDUCATED ON D/C INSTRUCTIONS, NEW MEDICATION AND HOME OXYGEN.ALBUTEROL INHALER PROVIDED TO PT AT THIS TIME. PT VERBLAIZED UNDERSTANDING. #18G IN RAC REMOVED WITH CATHATERS TILL INTACT. TELE MONITORING REMOVED, ER NOTIFIED. PT GETTING DRESSED AT THIS TIME.
--- NOTE | 2020-08-08 14:45 | NUR ---
JULIANNE CALLED FOR PT. [facility] TO PAY FOR TAXI
--- NOTE | 2020-08-08 15:09 | NUR ---
Discharge instructions given. Patient verbalizes understanding of same. Discharged in stable condition via Wheelchair to Home with staff. All belongings sent with pt. PT D/C HOME VIA WHEELCHAIR IN STABLE CONDITION WITH ALL BELONGINGS AND DC INSTRUCTIONS WITH [facility]. [facility] PAID FOR [employer]
== END 2020-08-08 14:40 | disposition home health service (06) ==
LOC: ED 10:36 → ED-I 11:05 → ED 12:06 → ED-I 12:07 → MS2 12:07
PROVIDERS: Family Medicine; Nurse Practitioner; ADMIT Internal Medicine; ATTEND Internal Medicine
DX: I11.0 Hypertensive heart disease with heart failure (principal); I50.43 Acute on chronic combined systolic (congestive) and diastolic (congestive) heart failure; I25.10 Atherosclerotic heart disease of native coronary artery without angina pectoris; I25.5 Ischemic cardiomyopathy; I48.0 Paroxysmal atrial fibrillation; J44.9 Chronic obstructive pulmonary disease, unspecified; E78.5 Hyperlipidemia, unspecified; E03.9 Hypothyroidism, unspecified; G40.909 Epilepsy, unspecified, not intractable, without status epilepticus; N40.0 Benign prostatic hyperplasia without lower urinary tract symptoms; F17.210 Nicotine dependence, cigarettes, uncomplicated; Z95.5 Presence of coronary angioplasty implant and graft; Z86.73 Personal history of transient ischemic attack (TIA), and cerebral infarction without residual deficits; Z95.810 Presence of automatic (implantable) cardiac defibrillator; Z20.822 Contact with and (suspected) exposure to COVID-19
CPT/HCPCS: G0378

== ENCOUNTER 2020-08-17 11:37 | Observation (INO) | payer MEDICARE, MEDICAID ==
[~2020-08-17] VITALS: Ht 172.7 cm; Wt 53.8 kg
[~2020-08-17 11:37] MED LIST changes: +ALBUTEROL108 MCG/AC IN
--- NOTE | 2020-08-17 11:48 | NUR ---
WHEELCHAIR TO THE ROOM
--- NOTE | 2020-08-17 12:30 | NUR ---
PT RESTING ON STRETCHER, TREATMENTS COMPLETED. PT PROVIDED URINE AND PLAN OF CARE DISCUSSED. CALL LIGHT WITHIN REACH
[2020-08-17 13:04] LABS: HEMATOCRIT 36.7 % (39.0-50.0); HEMOGLOBIN 11.6 g/dl (14.0-18.0); IMMATURE GRANULOCYTES 0.3 % (0.0-5.0); MEAN CELL VOLUME 102.5 fL CALC (80.0-100.0); MEAN CORPUSCULAR HGB 32.4 pG CALC (26.0-32.0); MEAN CORPUSCULAR HGB CONC 31.6 g/dL CAL (32.0-36.0); NEUT# 4.83 thou/uL (1.82-7.42); RED BLOOD COUNT 3.58 mill/uL (4.70-6.10); RED CELL DISTRI WIDTH 15.3 % (11.5-15.5)
[2020-08-17 13:21] LABS: ALBUMIN 4.1 g/dL (3.2-5.0); ALKALINE PHOSPHATASE 93 u/l (38-126); ANION GAP 15 (6-22 (CALC)); BILIRUBIN, TOTAL 1.7 mg/dL (0.0-1.4); BUN 27 mg/dL (8-23); BUN/CREATININE RATIO 22 (12-20 (CALC)); CARBON DIOXIDE 27 mmol/l (22-30); CHLORIDE 101 mmol/l (95-108); CREATININE 1.3 mg/dL (0.7-1.3); GFR 55 ML/MIN (>=60 (CALC)); GFR FOR AFR.AMER. > 60 ML/MIN (>=60 (CALC)); POTASSIUM 3.7 mmol/l (3.5-5.1); SGOT/AST 22 u/l (19-48); SODIUM 140 mmol/l (137-146); TOTAL PROTEIN 7.1 g/dL (6.3-8.2)
--- NOTE | 2020-08-17 13:39 | NUR ---
PT RESTING ON STRETCHER AWAITING FURTHER INSTRUCTIONS
[2020-08-17 13:55] LABS: URINE BILIRUBIN - DIPSTICK NEGATIVE (NEGATIVE); URINE BLOOD DIPSTICK NEGATIVE (NEGATIVE); URINE COLOR YELLOW; URINE GLUCOSE - DIPSTICK NEGATIVE (NEGATIVE); URINE KETONE NEGATIVE (NEGATIVE); URINE LEUK ESTERASE NEGATIVE (NEGATIVE); URINE PH 5.5 (4.5-8.0); URINE PROTEIN - DIPSTICK NEGATIVE (NEG-TRACE); URINE SPECIFIC GRAVITY 1.025; URINE UROBILINOGEN - DIPSTICK 0.2 E.U./dL (0.2)
[2020-08-17 13:57] LABS: URINE NITRITE - DIPSTICK NEGATIVE (Negative)
--- NOTE | 2020-08-17 14:30 | NUR ---
PT ASKED FOR WATER, WITH MD PERMISSION, HE WAS GIVEN A SMALL AMOUNT OF WATER PER MD ORDER. PT DENIES ANY NEEDS AT THIS TIME. URINAL AT BEDSIDE SINCE HE WAS GIVEN LASIX
--- NOTE | 2020-08-17 15:26 | NUR ---
GAVE REPORT TO MEMO
--- NOTE | 2020-08-17 15:43 | NUR ---
PT TRANSPORTED TO [facility] STABLE AND IN NO DISTRESS VIA W/C. CARE ASSUMED TO MEMO Admission Note Report Given to: MEMO Transported by: X Wheelchair Stretcher Transported with: X Nurse Transporter X Patent IV O2 X Dry Man Location: ICU X MS2
[2020-08-17 15:46] VITALS: BP 107/79
--- NOTE | 2020-08-17 15:50 | NUR ---
REPORT RECEIVED FROM JEANNE IN ED, PT ARRIVED ON UNIT @ 1543 TRANSPORTED VIA W/C, ALERT AND ORIENTED X 4, DENIES PAIN BUT SOB AT THIS TIME, C/O BEING VERY HUNGRY MANY TIMES DURING ASSESSMENT AND GIVEN SNACK, # [address] TO RFA, TELE MONITOR IN PLACE, ORIENTED TO ROOM AND CALL VELEZ, SETTLED IN BED, WILL CONTINUE TO MONITOR.
--- NOTE | 2020-08-17 18:27 | NUR ---
PT'S MEDIATIONS SENT TO PHARMACY FOR SAFE KEEPING
[2020-08-17 19:00] VITALS: BP 115/74
--- NOTE | 2020-08-17 22:45 | NUR ---
PATIENT IS ALERT AND ORIENTED X3. ABLE TO MAKE NEEDS KNOWN. RESPRATION LABORED ON ROOM AIR. PATIENT GETS SHORT OF BREATH WALKING TO BATHROOM AND SOMETIMES WHEN TALKING. ON ROOM AIR. ON TELEMETRY, PACED. C/O LLE PAIN FROM CHUCK HOSE. PT REQUESTED STOCKINGS BE REMOVED FOR COMFORT. STOCKINGS REMOVED AND INFORMED PATIENT THEY NEED TO BE PUT BACK ON IN A.M. PATIENT VERBALIZED UNDERSTANDING. TYLENOL PO GIVEN WELL. BED IN LOW POSITION. BED ALARM ACTIVATED. CALL LIGHT WITHIN REACH.
[2020-08-18 00:19] VITALS: BP 110/77
[2020-08-18 04:56] VITALS: BP 96/72
[2020-08-18 05:40] LABS: HEMATOCRIT 35.7 % (39.0-50.0); HEMOGLOBIN 11.3 g/dl (14.0-18.0); MEAN CELL VOLUME 102.6 fL CALC (80.0-100.0); MEAN CORPUSCULAR HGB 32.5 pG CALC (26.0-32.0); MEAN CORPUSCULAR HGB CONC 31.7 g/dL CAL (32.0-36.0); RED BLOOD COUNT 3.48 mill/uL (4.70-6.10); RED CELL DISTRI WIDTH 15.2 % (11.5-15.5)
[2020-08-18 05:46] LABS: ANION GAP 11 (6-22 (CALC)); BUN 30 mg/dL (8-23); BUN/CREATININE RATIO 30 (12-20 (CALC)); CARBON DIOXIDE 27 mmol/l (22-30); CHLORIDE 102 mmol/l (95-108); GFR > 60 ML/MIN (>=60 (CALC)); GFR FOR AFR.AMER. > 60 ML/MIN (>=60 (CALC)); MAGNESIUM 2.2 mg/dL (1.6-2.3); POTASSIUM 3.5 mmol/l (3.5-5.1); SODIUM 136 mmol/l (137-146)
[2020-08-18 07:20] VITALS: BP 106/71
--- NOTE | 2020-08-18 07:20 | NUR ---
PATIENT SITTING UP IN BED AT THIS TIME GUEST LAUNDRY ATTENDANT DONE SEE INTERVENTIONS. PATIENT LUNG NAVA ARE CLEAR IN UPPER LOBES AND CRACKLES ARE HEARD IN LOWER LUNG NAVA AT THIS TIME. PATIENT DENIES ANY PAIN AT THIS TIME. PATIENT IS ALERT AND ORIENTED AND NEURO CHECKS REMAIN UNCHANGED FROM PREVIOUS ASSSESSMENT. SIDERAILS ARE UP X 2 CALL LIGHT IS WITHIN REACH AND BED ALARM IS ACTIVATED AND TELE MONITOR ON AND BEING MONITORED BY ED.
[2020-08-18 10:50] VITALS: BP 108/67
--- NOTE | 2020-08-18 13:13 | NUR ---
PATIENT D/C AT THIS TIME. PATIENT VERBALIZES UNDERSTANDING OF DC INSTRUCTRIONS AT THIS TIME. PATIENT WILL BE PROVIDED A TAXI FOR HOME.
--- NOTE | 2020-08-18 13:19 | NUR ---
Discharge instructions given. Patient verbalizes understanding of same. Discharged in condition via Taxi to Home with *Other. All belongings sent with pt.
== END 2020-08-18 13:25 ==
LOC: ED 11:37 → ED-I 14:04 → ED 14:26 → MS2 14:27
PROVIDERS: Family Medicine; Nurse Practitioner; ADMIT Internal Medicine; ATTEND Internal Medicine
DX: I11.0 Hypertensive heart disease with heart failure (principal); I50.43 Acute on chronic combined systolic (congestive) and diastolic (congestive) heart failure; I25.10 Atherosclerotic heart disease of native coronary artery without angina pectoris; I25.5 Ischemic cardiomyopathy; I48.91 Unspecified atrial fibrillation; J44.9 Chronic obstructive pulmonary disease, unspecified; E78.5 Hyperlipidemia, unspecified; E03.9 Hypothyroidism, unspecified; N40.0 Benign prostatic hyperplasia without lower urinary tract symptoms; R00.0 Tachycardia, unspecified; G40.909 Epilepsy, unspecified, not intractable, without status epilepticus; F17.210 Nicotine dependence, cigarettes, uncomplicated; T44.7X6A Underdosing of beta-adrenoreceptor antagonists, initial encounter; Z91.128 Patient's intentional underdosing of medication regimen for other reason; Z91.19 Patient's noncompliance with other medical treatment and regimen; Z95.5 Presence of coronary angioplasty implant and graft; Z86.73 Personal history of transient ischemic attack (TIA), and cerebral infarction without residual deficits; Z95.810 Presence of automatic (implantable) cardiac defibrillator; Z99.81 Dependence on supplemental oxygen; Z20.822 Contact with and (suspected) exposure to COVID-19
CPT/HCPCS: G0378

== ENCOUNTER 2020-08-24 10:51 | Inpatient (IN) | payer MEDICARE, MEDICAID ==
[~2020-08-24] VITALS: Ht 172.7 cm; Wt 51.0 kg
[2020-08-24] VITALS (11 sets, daily range): BP systolic 92–138; BP diastolic 60–85
--- NOTE | 2020-08-24 10:51 | NUR ---
PT ALERT/ORIENTED X3, STATES IS HERE BECAUSE HE WANTS HIS PACEMAKER CHECKED AND COULDNT GET INTO SEE DR. JENNINGS FOR A MONTH. HE STATES HE ISNT HAVING ANY PROBLEMS, JUST THINKS ITS TIME TO GET IT CHECKED. PLUS PT WAS AT HOUSE AND THOUGHT HE NEEDED TO COME IN FOR EVALUATION OF HIS SOB, THAT HE STATES HE HAS BEEN HAVING FOR OVER A YEAR.
--- NOTE | 2020-08-24 12:35 | NUR ---
ULTRASOUND IN PROGRESS
[2020-08-24 12:46] LABS: HEMATOCRIT 37.7 % (39.0-50.0); HEMOGLOBIN 11.9 g/dl (14.0-18.0); IMMATURE GRANULOCYTES 0.1 % (0.0-5.0); MEAN CELL VOLUME 103.3 fL CALC (80.0-100.0); MEAN CORPUSCULAR HGB 32.6 pG CALC (26.0-32.0); MEAN CORPUSCULAR HGB CONC 31.6 g/dL CAL (32.0-36.0); NEUT# 4.66 thou/uL (1.82-7.42); RED BLOOD COUNT 3.65 mill/uL (4.70-6.10); RED CELL DISTRI WIDTH 15.1 % (11.5-15.5)
[2020-08-24 12:48] LABS: URINE BILIRUBIN - DIPSTICK NEGATIVE (NEGATIVE); URINE BLOOD DIPSTICK NEGATIVE (NEGATIVE); URINE COLOR YELLOW; URINE GLUCOSE - DIPSTICK NEGATIVE (NEGATIVE); URINE KETONE NEGATIVE (NEGATIVE); URINE LEUK ESTERASE NEGATIVE (NEGATIVE); URINE NITRITE - DIPSTICK NEGATIVE (Negative); URINE PH 5.5 (4.5-8.0); URINE PROTEIN - DIPSTICK TRACE mg/dL (NEG-TRACE); URINE SPECIFIC GRAVITY 1.025
[2020-08-24 13:02] LABS: ALBUMIN 3.7 g/dL (3.2-5.0); ALKALINE PHOSPHATASE 91 u/l (38-126); ANION GAP 9 (6-22 (CALC)); BUN 27 mg/dL (8-23); BUN/CREATININE RATIO 24 (12-20 (CALC)); CARBON DIOXIDE 30 mmol/l (22-30); CHLORIDE 102 mmol/l (95-108); CREATININE 1.1 mg/dL (0.7-1.3); GFR > 60 ML/MIN (>=60 (CALC)); GFR FOR AFR.AMER. > 60 ML/MIN (>=60 (CALC)); LIPASE 40 u/l (23-300); POTASSIUM 3.7 mmol/l (3.5-5.1); SGOT/AST 23 u/l (19-48); SODIUM 138 mmol/l (137-146); TOTAL PROTEIN 6.7 g/dL (6.3-8.2)
[2020-08-24 13:10] LABS: D-DIMER 0.73 mg/L (0.19-0.60)
[2020-08-24 13:17] LABS: ACT PARTIAL THROMBO TIME 28.2 SECONDS (20.0-32.5); INTERNATIONAL NORMALIZED RATIO 1.1 RATIO (0.7-1.3); PROTHROMBIN TIME 11.6 SECONDS (9.0-12.5)
--- NOTE | 2020-08-24 13:29 | NUR ---
MD AT BEDSIDE TO DISCUSS RESULTS AND POC.
[2020-08-24] MEDS ORDERED: SPIRONOLACT25 MG PO (15:31)
[2020-08-24] MEDS ORDERED: FUROSEMIDE20 MG PO (15:34)
[2020-08-24] MEDS ORDERED: LEVOTHYROXIN25 MC1 PO (15:34)
--- NOTE | 2020-08-24 16:12 | NUR ---
SECOND ATTEMPT TO CALL WITH ADMISSION INFORMATION, ANSWER QUESTIONS
--- NOTE | 2020-08-24 16:20 | NUR ---
REPORT CALL TO ICU 14, REPORT TO MITZI FELIPE
--- NOTE | 2020-08-24 17:00 | NUR ---
PT ARRIVED TO UNIT ICU ROOM 4 AT 1628 VIA STRETCHER WITH ER STAFF; ALERT AND ORIENTED X 3; HARD OF HEARING; WEARS BILATERAL HEARING AIDS AT HOME. AMBULATED TO BED WITH UNSTEADY GAIT AND ONE PERSON ASSIST TO BED. DENIES PAIN CURRENTLY. RESPIRATIONS SHALLOW AND EVEN ON ROOM AIR; PT DOES C/O MILD SOB; 99% SPO2 ON ROOM AIR. CONNECTED TO ATTACHMENTS; VSS. PACED WITH PVCS ON MANAGER STYLE. #20 EMS SITE TO LFA APPEARS HEALTHY AND FLUSHES; SALINE LOCKED. LUNGS ARE CLEAR; HEART RATE IRREGULAR. SKIN PALE; PERRLA. NEURO CHECK WNL FOR PATIENT; NO DEFICITS NOTED FROM HX OF CVA; PT C/O WEAKNESS TO BLE; BLE DRIFT, BUT DO NOT HIT BED. 2+ PITTING PEDAL EDEMA; CHUCK HOSE APPLIED TO BLE. SCABS AND ABRASIONS TO BUE; SCRATCHES TO UPPER ABDOMEN FROM HIS CAT. ORIENTED TO ROOM AND CALL LIGHT SYSTEM; PLAN OF CARE DISCUSSED; PT ENCOURAGED TO VERBALIZE CONCERNS; STATES UNDERSTANDING. SAFETY MEASURES IN PLACE. CALL LIGHT WITHIN REACH.
--- NOTE | 2020-08-24 17:31 | NUR ---
DOBUTAMINE GTT INITIATED AT 2 MCG/KG/MIN; PATIENTS INITAL WEIGHT WITH BED SCALE 55KG. NORMAL SALINE ALSO INITIATED AT KVO. SCHEDULED MEDICATIONS ADMINISTERED INCLUDING LASIX IV; CONDOM CATHETER APPLIED FOR STRICT I&0 WITH PATIENT CONSENT. HEART RATE FLUCTUATING BETWEEN 98-130 BPM; WILL CONTINUE TO MONITOR. PT PROVIDED WITH DINNER TRAY; ATE 100%.
--- NOTE | 2020-08-24 17:35 | NUR ---
LAB AT BEDSIDE. PT ALERT AND TALKATIVE; 98-99% ON ROOM AIR WHILE AT REST. SITTING UP WATCHING TV.
--- NOTE | 2020-08-24 18:13 | NUR ---
CONDOM CATHETER DRAINING CLEAR, CORY URINE TO GRAVITY; 400 ML EMPTIED AT THIS TIME. PT TALKING TO ON PORTABLE PHONE.
--- NOTE | 2020-08-24 19:30 | NUR ---
report given by nevaeh. patient resting in bed watching tv. resp even and unlabored. no s/s of distress noted. fall and saftey precautions in place. iv infusing fluids at kvo and dobutamine. +1 pedal edema present. condom cath in place and working well. plan of care discussed. patient informed to call with any questions or concerns.
--- NOTE | 2020-08-24 21:06 | NUR ---
PATIENT REMOVED 20 LFA IV SITE BY SCCIDENT. NEW IV SITE PLACED 20 RFA. PM MEDICATION GIVEN. FALL AND SAFTEY PRECAUTIONS IN PLACE.
--- NOTE | 2020-08-24 21:14 | NUR ---
PATIENT REQUESTING O2 TO WEAR TO SLEEP TONIGHT. NC GIVEN TO PATIENT SET AT 3L PER WHAT HE USES AT HOME.
[2020-08-25] VITALS (22 sets, daily range): BP systolic 87–121; BP diastolic 59–84
--- NOTE | 2020-08-25 | NUR ---
RAJENDRA AT BEDSIDE COLLECTING BLOOD FOR TROP
--- NOTE | 2020-08-25 02:00 | NUR ---
PATIENT RESTING WITH EYES CLOSED. RESP EVEN AND UNLABORED. NO S/S OF DISTRESS NOTED. FALL AND SAFTEY PRECAUTIONS IN PLACE.
[2020-08-25 05:33] LABS: HEMOGLOBIN 10.9 g/dl (14.0-18.0); MEAN CELL VOLUME 102.1 fL CALC (80.0-100.0); MEAN CORPUSCULAR HGB 32.7 pG CALC (26.0-32.0); MEAN CORPUSCULAR HGB CONC 32.1 g/dL CAL (32.0-36.0); RED BLOOD COUNT 3.33 mill/uL (4.70-6.10); RED CELL DISTRI WIDTH 15.1 % (11.5-15.5)
[2020-08-25 05:58] LABS: ANION GAP 11 (6-22 (CALC)); BUN 29 mg/dL (8-23); BUN/CREATININE RATIO 27 (12-20 (CALC)); CARBON DIOXIDE 25 mmol/l (22-30); CHLORIDE 103 mmol/l (95-108); CREATININE 1.1 mg/dL (0.7-1.3); GFR > 60 ML/MIN (>=60 (CALC)); GFR FOR AFR.AMER. > 60 ML/MIN (>=60 (CALC)); POTASSIUM 3.5 mmol/l (3.5-5.1); SODIUM 136 mmol/l (137-146)
--- NOTE | 2020-08-25 06:15 | NUR ---
PATIENT AWAKE AND WATCHING TV. RESP EVEN AND UNLABORED. NO S/S OF DISTRESS NOTED. FALL AND SAFTEYP RECAUTIONS IN PLACE.
--- NOTE | 2020-08-25 07:15 | NUR ---
REPORT RECEIVED FROM MATTEO FROST.
--- NOTE | 2020-08-25 07:30 | NUR ---
ASSISTED UP TO BEDSIDE CHAIR FOR AM CARE AND BREAKFAST; PARTIAL BATH GIVEN, LINENS CHANGED, AND PT USED MOUTHWASH AND TOOTHETTS FOR ORAL CARE. CONDOM CATHETER LEAKING; REMOVED AND PT INSRUCTED TO USE URINAL FOR NOW. 800ML OF CLEAR YELLOW URINE EMPTIED. PT IS ALERT AND ORIENTED X3; DENIES PAIN; RESPIRATIONS EVEN AND UNLABORED ON ROOM AIR; SPO2 99%; VSS. DOPUTAMINE GTT INFUSING AT 2MCG/KG/MIN; NORMAL SALINE INFUSING AT KVO BACK UP FLUIDS; #20 TO RFA APPEARS HEATLHY; NO SIGNS OF INFILTRATION OR PHLEBITIS. POC REVIEWED; PT ENCOURAGED TO VERBALIZE CONCERNS; STATES UNDERSTANDING. SAFETY MEASURES IN PLACE; CALL LIGHT WITHIN REACH.
--- NOTE | 2020-08-25 09:30 | NUR ---
SITTING UP ON EDGE OF BED INDEPENDENTLY TO USE URINAL; VOIDING CLEAR, YELLOW URINE IN SMALL FREQUENT AMOUNTS.
--- NOTE | 2020-08-25 10:59 | NUR ---
DR. NY AT BEDSIDE.
--- NOTE | 2020-08-25 13:00 | NUR ---
REPOSITIONED BACK INTO BED PER REQUEST; PT STATES THAT HE IS FEELING WEAKER SINCE BEING UP IN CHAIR.
--- NOTE | 2020-08-25 15:00 | NUR ---
PHYSICAL THERAPY AT BEDSIDE FOR EVAL.
--- NOTE | 2020-08-25 17:37 | NUR ---
[place] [facility] [place]. SITTING UP IN BED FOR DINNER; NO REQUESTS OR CONCERNS AT THIS TIME. CALL LIGHT WITHIN REACH.
--- NOTE | 2020-08-25 19:25 | NUR ---
REPORT GIVEN BY MITZI. PATIENT IN RESTING IN BED WATCHING TV. RESP EVEN AND UNLABORED. NO S/S OF DISTRESS NOTED. IV INFUSING DOBUTAMINE AND NS @ KVO. USING THE URINAL FOR ACCURATE OUTPUT. PACED ON TELE. FALL AND SAFTEY PRECAUTIONS IN PLACE. PLAN OF CARE DISCUSSED. PATIENT INFORMED TO CALL WITH ANY QUESTIONS OR CONCERNS.
--- NOTE | 2020-08-25 23:19 | NUR ---
DR. NY REQUESTING THAT ER MD PLACE CENTRAL LINE IN PATIENT. THIS WILL ALLOW PATIENT TO GET DOPAMINE. WILL OBTAIN CONSENT FOR CENTRAL LINE PLACEMENT.
[2020-08-26] VITALS (25 sets, daily range): BP systolic 87–122; BP diastolic 63–85
--- NOTE | 2020-08-26 00:09 | NUR ---
CENTRAL LINE PLACED BY DR. GALEANO. CONSENTS OBTAINED. AWAITING CXR TO CONFIRM PLACEMENT.
--- NOTE | 2020-08-26 00:12 | NUR ---
X-RAY TECH AT BEDSIDE FOR CXR
--- NOTE | 2020-08-26 00:43 | NUR ---
CXR CONFIRMED PLACEMENT OF CENTRAL LINE. DOPAMINE STARTED.
--- NOTE | 2020-08-26 01:43 | NUR ---
PATIENT'S HEART RATE SUSTAINING GREATER THAN 160 BPM. DOPAMINE STOPPED. WILL CONTIUNE TO INOCENCIO
--- NOTE | 2020-08-26 04:35 | NUR ---
PATIENT RESTING WITH EYES CLOSED. RESP EVEN AND UNLABORED. NO S/S OF DISTRESS NOTED. FALL AND SAFTEY PRECAUTIONS IN PLACE.
[2020-08-26 06:02] LABS: ANION GAP 9 (6-22 (CALC)); BUN 30 mg/dL (8-23); BUN/CREATININE RATIO 27 (12-20 (CALC)); CARBON DIOXIDE 30 mmol/l (22-30); CHLORIDE 101 mmol/l (95-108); CREATININE 1.1 mg/dL (0.7-1.3); GFR > 60 ML/MIN (>=60 (CALC)); GFR FOR AFR.AMER. > 60 ML/MIN (>=60 (CALC)); MAGNESIUM 2.3 mg/dL (1.6-2.3); SODIUM 136 mmol/l (137-146)
[2020-08-26 06:04] LABS: POTASSIUM 4.3 mmol/l (3.5-5.1)
--- NOTE | 2020-08-26 07:00 | NUR ---
RECIEVED PATIENT FROM NIGHT NURSE.
--- NOTE | 2020-08-26 08:00 | NUR ---
PATIENT ASSESSED, SITTING UP IN BED EATING BREAKFAST. SAFETY MEASURES IN PLACE. CALL LIGHT IN REACH. WILL COTNINUE TO MONITOR.
--- NOTE | 2020-08-26 10:00 | NUR ---
PATIENT SITTING IN BED WATCHING TV
--- NOTE | 2020-08-26 10:51 | NUR ---
RT SUBCLAVIN CENTRAL LINE WAS CHANGED. SITE IS NOW CLEAN, DRY AND INTACT.
--- NOTE | 2020-08-26 12:00 | NUR ---
PATIENT EATING LUNCH.
--- NOTE | 2020-08-26 13:23 | NUR ---
Patient did B LE seated AROM exercises: hip flexion, hip adduction, hip abduction, knee extension, hamstring curls, gluteal squeezes, and ankle AROM exercises for 10 reps x 2 sets with occasional verbal and tactile cuing to help decrease trick movements and fall risks. Patient did log rolling bed mobility and sit to stand push off technique for transfers (3 to 4 reps with min A x 1 for proper limb positioning to decrease trick movements and fall risks). Patient walked with min A x 1 to CGA x 1 on level surfaces within the room covering 10 feet x 3 reps with no assistive device with occasional lateral swaying to help decrease fall risks.
--- NOTE | 2020-08-26 14:00 | NUR ---
PATIENT IS RESTING IN BED
--- NOTE | 2020-08-26 16:00 | NUR ---
PATIENT WATCHING TV.
--- NOTE | 2020-08-26 18:00 | NUR ---
PATIENT SITTING UP IN BED, WATCHING TV.
--- NOTE | 2020-08-26 19:30 | NUR ---
PATIENT RESTING IN BED ON ROUNDS. RESP NON-LABORED. LUNGS CLEAR. O2 SAT 94% PERIPHERAL PULSES INTACT. SALINE LOCK IN PLACE IN RFA. RSCTLC IN PLACE WITH DOBUTAMINE GTT 500 MG /250 ML INFUSING AT 2 MCK/KG/MIN (6.6 ML/HR). SERVICE DESK TECHNICIAN SHOWS PACED RHYTHM. DISCUSSED PLAN OF CARE. ASSISTED PATIENT UP TO RECLINER. CALL VELEZ IN REACH.
--- NOTE | 2020-08-26 22:00 | NUR ---
PATIENT REMAINS UP IN CHAIR WATCHING TV. NO C/O VOICED. VSS. RESP NON-LABORED. PACED RHYTHM ON MONITOR.
--- NOTE | 2020-08-26 23:30 | NUR ---
ASSISTED PATIENT BACK TO BED. NO COMPLAITNS VOICED. PATIENT STATES HE IS FEELING MUCH BETTER.
[2020-08-27] VITALS (22 sets, daily range): BP systolic 83–132; BP diastolic 52–90
--- NOTE | 2020-08-27 | NUR ---
RESTIGN WITH EYES CLOSED. RESP NON-LABORED. VSS. PACED RHYTHM ON MONITOR.
--- NOTE | 2020-08-27 02:00 | NUR ---
SLEEPING. IN NO APPARENT DISTRESS.
--- NOTE | 2020-08-27 04:00 | NUR ---
PATIENT AWAKE ON ROUNDS. VSS. AFEBRILE. PACED RHYTHM ON MONIOTR. CONTINUES ON DOBUTAMINE GTT AT 2 MCG/KG/MN.
--- NOTE | 2020-08-27 05:20 | NUR ---
PATIENT AWAKENS EASILY TO NAME. BLOOD DRAWN FOR AM LABS.
[2020-08-27 06:02] LABS: ANION GAP 9 (6-22 (CALC)); BUN 31 mg/dL (8-23); BUN/CREATININE RATIO 31 (12-20 (CALC)); CARBON DIOXIDE 30 mmol/l (22-30); CHLORIDE 99 mmol/l (95-108); GFR > 60 ML/MIN (>=60 (CALC)); GFR FOR AFR.AMER. > 60 ML/MIN (>=60 (CALC)); MAGNESIUM 2.2 mg/dL (1.6-2.3); POTASSIUM 4.3 mmol/l (3.5-5.1); SODIUM 133 mmol/l (137-146)
--- NOTE | 2020-08-27 07:25 | NUR ---
pt awake in bed; no apparent distress noted; pt offers no complaints; assessment completed at this time; pt alert and oriented; denies pain; no n/v noted; resp even and unlabored; lungs clear/ diminished bases; skin color wnl; ra; hr irreg; weak left pedal pulse; trace edema noted to ble; paced/ pvc on monitor; abd soft with bs present; no bm noted per investment underwriter; pt voiding clear yellow urine without complication; urinal at bedside; #20 saline locked to rfa; right subclavian TLC with dobutamine gtt at 2mcg/kg/min; ns at kvo; plan of care/ am meds explained; call light within reach; will continue to monitor;
--- NOTE | 2020-08-27 08:10 | NUR ---
awake sitting on the side of bed eating breakfast; no apparent distress noted; offers no complaints; paced/pvc on monitor; call light within reach; will continue to monitor
--- NOTE | 2020-08-27 09:07 | NUR ---
awake; assisted to recliner as per request; bath basin set up for am care; will continue to monitor
--- NOTE | 2020-08-27 10:15 | NUR ---
awake in recliner; offers no complaints; paced/pvc on monitor; iv intact; call light within reach; will continue to monitor
--- NOTE | 2020-08-27 10:43 | NUR ---
Dr Pereyra present at bedside to assess pt and discuss plan of care
--- NOTE | 2020-08-27 12:00 | NUR ---
assisted back to bed; offers no complaints; paced/pvc on monitor; call light within reach; will continue to monitor
--- NOTE | 2020-08-27 12:05 | NUR ---
PT at bedside
--- NOTE | 2020-08-27 12:49 | NUR ---
Patient did standing B LE exercises doing hip flexion, hip extension, hip adduction, hip abduction, mini squats, heel raises, and side stepping for 10 reps x 2 sets with 2 to 3 rest periods lasting 1 to 2 minutes to catch his breath before doing the next exercise (occasional verbal and tactile cuing are needed to help patient decrease trick movements and fall risks - patient states that he doesn't need use of oxygen at 2 liters). Patient did sit to stand push off and log rolling bed mobility transfers (2 to 3 reps) with CGA x 1 with occasional verbal and tactile cuing help trick movements and fall risks.
--- NOTE | 2020-08-27 14:12 | NUR ---
awake in bed; assist to bsc; offers no complaints; paced/pvc on monitor; call light within reach; will continue to monitor
--- NOTE | 2020-08-27 16:15 | NUR ---
awake in bed; offers no complaints; iv intact; paced/pvc on monitor; deny needs; call light within reach; will continue to monitor
--- NOTE | 2020-08-27 18:11 | NUR ---
awake sitting on the side of bed; complaints of being cold; additional blankets provided; paced/ pvc on monitor; iv intact; call light within reach
--- NOTE | 2020-08-27 19:00 | NUR ---
REPORT RECEIVED FROM Chio SIU RN, CARE OF PT ASSUMED AT THIS TIME.
--- NOTE | 2020-08-27 19:30 | NUR ---
REPORTED BY Ravi REGALADO CNA, PT REPORTS ACCIDENTAL INCONTINENCE WHEN USING URINAL. GOWN AND BED PAD WET. PARTIAL LINEN CHANGE COMPLETED.
--- NOTE | 2020-08-27 20:00 | NUR ---
PT SITTING UP IN BED. PHYSICAL ASSESMENT COMPLETED. PT IS A/O X2, AND [place]. REQUEST PRN O2 BE APPLIED. REPORTS HE USES SUPPLEMENTAL 02 AT HOME AT HS. 02 APPLIED PER PT'S REQUEST. SPO2 100%. LUNGS CLEAR. RESPIRATIONS REGULAR AND UNLABORED. NO EDEMA NOTED. PACED ON MONITOR WITH UNDERLYING AFIB AND PVC'S. R-SUBCLAVIAN TLC INFUSING DOBUTAMINE GTT @ 6.6ML/H AND 0.9% NACL @ 20ML/H. FLUSHES EASILY AND HAS GOOD BLOOD RETURN. DRESSING DRY AND INTACT. NIBP 113/75mmHg. PT DENIES NEEDS AT THIS TIME WHEN ASKED. DOES STATE "THEYRE GIVING ME SO MUCH LASIX ITS STARTING TO HURT MY STOMACH EVERY TIME I GO, IM NOT TAKING ANYMORE". EDUCATION PROVIDED ON LASIX AND NEED FOR DIURESIS. PT VERBALIZES UNDERSTANDING. PLAN OF CARE REVIEWED, PT VERBALIZES UNDERSTANDING. CALL VELEZ WITHIN REACH, AGREES TO CALL PRN. BED LOCKED IN LOW POSITION WITH BEDRAILS UP X2.
--- NOTE | 2020-08-27 20:51 | NUR ---
SCHEDULED MEDICATION ADMINISTERED, SEE E-MAR.
--- NOTE | 2020-08-27 22:10 | NUR ---
COMPLAINS OF ABDOMINAL PAIN "EVERY TIME I GO", NOTED THEIR IS NO URINE IN URINAL OR COMMODE. SHEETS DRY. QUESTIONED PT REGARDING WHERE HE IS VOIDING. PT REPORTS HE HASNT VOIDED SINCE APPROXIMATELY 1400. CLARIFIED WITH PT ABD PAIN IS HAPPENING WHEN HE UNSUCESSFULY ATTEMPTS TO VOID. BLADDER SCAN COMPLETED, RESULTS SHOW >999ML. URINARY RETENTION REPORTED TO DR. NY, ORDER TO PLACE SULLIVAN CATHETER RECEIVED. PROCEDURE EXPLAINED TO PT INCLUDING RISKS AND BENEFITS, PT IS AGREEABLE. 16 FR. SULLIVAN CATHETER INSERTED W/O DIFFICULTY, ASEPTIC TECHNIQUE MAINTAINED. CATHETER SECURED TO LEG. APPROXIMATELY 1300 ML CLEAR YELLOW URINE DRAINS INTO BAD. SULLIVAN CLAMPED AT THIS TIME.
--- NOTE | 2020-08-27 23:10 | NUR ---
SULLIVAN UNCLAMPED, DRAINING CLEAR YELLOW URINE TO GRAVITY. SULLIVAN SECURED TO LEG. TUBING UNKINKED AND UNOBSTRUCTED. PT TOLERATING WELL AND DENIES FURTHER ABDOMINAL DISCOMFORT.
--- NOTE | 2020-08-27 23:25 | NUR ---
FRESH CUP OF WATER PROVIDED TO PT PER HIS REQUEST BY Ravi REGALADO CNA.
[2020-08-28] VITALS (23 sets, daily range): BP systolic 84–117; BP diastolic 55–75
--- NOTE | 2020-08-28 00:07 | NUR ---
1500 ML CLEAR YELLOW URINE EMPTIED FROM SULLIVAN BY Ravi REGALADO RN.
--- NOTE | 2020-08-28 05:33 | NUR ---
BLOOD DRAWN FROM R-SUBCLAVIAN TLC, SCHEDULED MEDICATIONS ADMINISTERED, SEE E-MAR.
[2020-08-28 05:55] LABS: ANION GAP 10 (6-22 (CALC)); BUN 33 mg/dL (8-23); BUN/CREATININE RATIO 33 (12-20 (CALC)); CARBON DIOXIDE 31 mmol/l (22-30); CHLORIDE 98 mmol/l (95-108); GFR > 60 ML/MIN (>=60 (CALC)); GFR FOR AFR.AMER. > 60 ML/MIN (>=60 (CALC)); POTASSIUM 4.2 mmol/l (3.5-5.1); SODIUM 135 mmol/l (137-146)
--- NOTE | 2020-08-28 07:30 | NUR ---
pt awake in bed; no apparent distress noted; pt offers no complaints; assessment completed at this time; pt alert and oriented; denies pain; no n/v noted; resp even and unlabored; lungs clear; skin color wnl; o2 per nc at 3L; pt admits to sob during the night; hr irreg; strong pulses; no edema noted; paced/ pvc on monitor; abd soft with bs present; no bm noted per senior writer; gill to gravity draining clear yellow urine; cath strap intact; pt admits to having gill placed in the past for inability to urinate; #20 saline locked to rfa; TLC to right subclavian patent with dobutamine gtt infusing at 2mcg/kg/min; no redness or edema noted at sites; plan of care/ am meds explained; pt request for cold cereal this am/ dietary notified; call light within reach; will continue to monitor
--- NOTE | 2020-08-28 08:05 | NUR ---
awake in bed; paced/pvc on monitor; offers no complaints; iv intact; call light within reach; will continue to monitor
--- NOTE | 2020-08-28 08:55 | NUR ---
Dr Pereyra present at bedside to assess pt and discuss plan of care;
--- NOTE | 2020-08-28 10:02 | NUR ---
awake in bed; complaints of leg pain; will medicate; iv intact; gill to gravity; ra; paced/pvc on monitor; call light within reach; will continue to monitor
--- NOTE | 2020-08-28 10:17 | NUR ---
gill bag noted leaking; bag changed using aspetic technique
--- NOTE | 2020-08-28 12:00 | NUR ---
awake in recliner; offers no complaints; paced/pvc on monitor; gill to gravity; call light within reach; will continue to monitor
--- NOTE | 2020-08-28 14:15 | NUR ---
resting in bed with eyes closed; paced/pvc on monitor; gill to gravity; call light within reach; will continue to monitor
--- NOTE | 2020-08-28 14:55 | NUR ---
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
--- NOTE | 2020-08-28 16:10 | NUR ---
resting in bed watching tv; no apparent distress noted; pt offers no complaints; iv intact; gill to gravity; paced/pvc on monitor; call light within reach; will continue to monitor
--- NOTE | 2020-08-28 18:07 | NUR ---
pt awake in bed; paced/pvc on monitor; iv intact; no apparent distress noted; pt offers no complaints; call light within reach
--- NOTE | 2020-08-28 20:00 | NUR ---
BEDRESTING. WATCHING TV. RESP EVEN AND NONLABORED. IV HL. NO EDEMA NOTED. SULLIVAN TO BSD WITH CLEAR YELLOW URINE. STATES FEELS MUCH BETTER TODAY.
--- NOTE | 2020-08-28 21:17 | NUR ---
TLCL FLUSHED RX- MIDDLE [place] BUT FLUSHED. PT TALKATIVE, DENIES PAIN. NO DISTRESS NOTED. O2 NOT IN USE AT THIS TIME AND SAT 97%
--- NOTE | 2020-08-28 22:25 | NUR ---
watching tv. n/c at this time
[2020-08-29] VITALS (20 sets, daily range): BP systolic 83–104; BP diastolic 51–73
--- NOTE | 2020-08-29 | NUR ---
bedresting. watching tv. no distress noted
--- NOTE | 2020-08-29 02:00 | NUR ---
BEDRESTING. LIGHTS AND TV OFF. RESP EVEN AND NONLABORED
--- NOTE | 2020-08-29 04:00 | NUR ---
AWAKE. RESTLESS IN BED. SAID HE JUST CANNOT SLEEP
--- NOTE | 2020-08-29 05:03 | NUR ---
LAB DRAWN RX. WATCHING TV. NO FLUIDS OF DRIPS INFUSING AT THIS TIME
[2020-08-29 05:20] LABS: ANION GAP 12 (6-22 (CALC)); BUN 34 mg/dL (8-23); BUN/CREATININE RATIO 34 (12-20 (CALC)); CARBON DIOXIDE 32 mmol/l (22-30); CHLORIDE 95 mmol/l (95-108); GFR > 60 ML/MIN (>=60 (CALC)); GFR FOR AFR.AMER. > 60 ML/MIN (>=60 (CALC)); POTASSIUM 4.2 mmol/l (3.5-5.1); SODIUM 135 mmol/l (137-146)
--- NOTE | 2020-08-29 07:08 | NUR ---
REPORT GIVEN. BEDRESTING WITH EYES CLOSED.
--- NOTE | 2020-08-29 07:20 | NUR ---
RECIEVED PATIENT FROM NIGHT NURSE
--- NOTE | 2020-08-29 08:00 | NUR ---
PATIENT ASSESSED. PATIENT CURRENTLY EATING BREAKFAST.
--- NOTE | 2020-08-29 10:00 | NUR ---
PATIENT SITTING UP IN BED WATCHING TV.
--- NOTE | 2020-08-29 11:20 | NUR ---
PATIENT'S SULLIVAN TAKEN OUT
--- NOTE | 2020-08-29 14:00 | NUR ---
PATIENT SITTING UP IN CHAIR, WATCHING TV. PATIENT STILL HASN'T PEED. WILL CONTINUE TO MONITOR.
--- NOTE | 2020-08-29 16:00 | NUR ---
PATIENT HAS NEW SULLIVAN PLACED PER DOCTORS ORDERS DUE TO URINARY RENTENTION.
--- NOTE | 2020-08-29 17:12 | NUR ---
PT UPSET ABOUT BEING DISCHARGED HOME AND ABOUT SULLIVAN CATHETER. PT ALSO UPSET THAT SPOUSE IS BEING ADMITTED TO HOSPITAL WELL. PHONED DR [place] WITH PT CONCERNS. MD IS OK WITH PATIENT STAYING THROUGH NIGHT.
--- NOTE | 2020-08-29 18:23 | NUR ---
PATIENT SITTING UP IN BED WATCHING TV.
--- NOTE | 2020-08-29 18:39 | NUR ---
Patient did seated B LE exercises doing knee extension, hip flexion, hip adduction, hip abduction, hamstring curls, gluteal squeezes, and ankle ROM exercises for 10 reps x 3 sets with use of ball between knees to promote resistance and coordination with patient requiring occasional verbal and tactile cuing to help decrease trick movements and fall risks. Patient also carried out bed mobility and sit to stand transfer ADLs with practice of proper body mechanics to help improve functional weight bearing ADL participation and decrease burden of care from family (did 3 to 5 reps of ADLs with 1 to 2 breaks to help patient catch his breath).
--- NOTE | 2020-08-29 20:43 | NUR ---
PATIENT IS AWAKE, ORIENTED X4, LAYS IN CORONADO'S POSITION, IS ON RA, O2 SATS 93%-96%. BP 90'S SYSTOLIC, HR 60-70'S PACED. NURSE ASSESSMENT PERFORMED, IS CNCERNED ABOUT HIS WHO IS ADMITTED IN MD-SURG. AFEBRILE. RFA IV INTACT, FLUSHES PROPERLY, RIFFHT CHEST TRIPLE LUMEN CENTRAL LINE INTACT, FLUSHES AND RETURNS BLOOD. SKIN IS WARM/DRY. POC DISCUSSED. REQUESTS A LEMON APACHE TRIBE OF [place]. NO COMPLAINTS OF PAIN, REPORTS SLIGHT SOB. CALL LIGHT WITHIN REACH.
--- NOTE | 2020-08-29 21:33 | NUR ---
PATIENT ABLE TO SWALLOW BEDTIME MEDICATIONS WITHOUT DIFFICULTY. NO COMPLAINTS. WAS ABLE TO TALK TO HIS SON ON THE PHONE. NO NEEDS AT THIS TIME. CALL LIGHT WITHIN REACH. WATCHES TV.
[2020-08-30] VITALS (10 sets, daily range): BP systolic 79–101; BP diastolic 46–65
--- NOTE | 2020-08-30 | NUR ---
PATIENT SLEEPS, NO ACUTE DISTRESS SHOWN. CALL LIGHT WITHIN REACH.
--- NOTE | 2020-08-30 03:50 | NUR ---
BP CUFF READJUSTED TO RIGHT ARM DUE TO BP READING 70'S SYSTOLIC ON LEFT ARM. NO ACUTE DISTRESS SHOWN, PATIENT AWAKENS WITH PAINFUL STIMULI. NO NEEDS AT THIS TIME. CALL LIGHT WITHIN REACH.
--- NOTE | 2020-08-30 05:45 | NUR ---
PATIENT AWAKENS WITH PAINFUL STIMULI, NO ACUTE DISTRES SHOWN, NO COMPLAINTS. IV LASIX PROVIDED. WILL CONTINUE TO MONITOR.
--- NOTE | 2020-08-30 07:05 | NUR ---
REPORT RECEIVED FROM KIMBERLYRN
--- NOTE | 2020-08-30 07:55 | NUR ---
PT RESTING IN SEMI FOWLERS POSITION EATING BREAKFAST,A&O X3;VS OBTAINED AND ASSESSMENT COMPLETED;PT DENIES ANY CURRENT PAIN OR DISCOMFORTS,PAIN SCALE AND REPORTING EDUCATED;RESPIRATIONS EVEN AND UNLABORED ON RA,CLEAR LUNG SOUNDS;ABDOMEN SOFT ON PALPATION AND ACTIVE IN ALL 4 QUADRANTS;WEAK PEDAL PULSES;SKIN INTACT;CARDIAC MONITORING IN PLACE;#20G TO RFA FLUSHED AND PATENT AND RT SUBCLAVIAN TL FLUSHED AND PATENT;SULLIVAN CATHETER PATENT DRAINING TO GRAVITY WITH EASE;PT DENIES ANY ADDITIONAL NEEDS AT THIS TIME AND IS ENCOURAGED TO CALL FOR ASSISTANCE IF NEEDED;FALL PRECAUTIONS IN PLACE WITH BED IN THE LOWEST POSITION AND CALL LIGHT IN REACH;WILL CONTINUE TO MONITOR
--- NOTE | 2020-08-30 09:40 | NUR ---
AT BEDSIDE DISCUSSING POC.
--- NOTE | 2020-08-30 11:00 | NUR ---
PT OOB RESTING IN RECLINER;RESPIRATIONS EVEN AND UNLABORED ON RA;PT DENIES ANY CURRENT PAIN OR DISCOMFORTS;CARDIAC MONITORING REMAINS IN PLACE;IV SITES PATENT;SULLIVAN CATHETER REMAINS IN PLACE;PT UNDERSTANDS POC INCLUDING PLANS TO D/C HOME THIS AFTERNOON;PT DENIES ANY ADDITIONAL NEEDS AND IS ENCOURAGED TO CALL FOR ASSISTANCE IF NEEDED;CALL LIGHT IN REACH;WILL CONTINUE TO MONITOR
--- NOTE | 2020-08-30 12:37 | NUR ---
ALL DISCHARGE INSTRUCTIONS PROVIDED AT THIS TIME;PT INSTRUCTED TO F/U WITH AND UROLOGY, MONITOR WEIGHT AND TAKE ALL MEDICATIONS PRESCRIBED;PT VERBALIZES UNDERSTANDING AND DENIES ANY ADDITIONAL QUESTIONS OR NEEDS;IV SITES TO RFA AND RT SUBCLAVIAN REMOVED WITH CATHETER INTACT;SULLIVNA CATHETER REMAINS IN PLACE AND LEG BAG PROVIDED;HOME MEDICATIONS PROVIDED BACK FROM PHARMACY AT THIS TIME;WHEELCHAIR TO BE PROVIDED FOR D/C HOME;[facility] TO TRANSPORT PT HOME WITH SPOUSE;WILL CONTINUE TO MONITOR
--- NOTE | 2020-08-30 12:59 | NUR ---
Discharge instructions given. Patient verbalizes understanding of same. Discharged in stable condition via Wheelchair to Home with *Other. All belongings sent with pt. PT TRANSPORTED TO MED/SURG ROOM 278 WITH SPOUSE FOR D/C HOME VIA WHEELCHAIR IN STABLE CONDITION;ALL BELONGINGS LEFT WITH PT INCLUDING D/C INSRUCTIONS AND HOME MEDICATIONS;[facility] TO BE PROVIDED FOR D/C HOME AND SPOUSE AND TO BE TRANSPORTED HOME TOGETHER.
--- NOTE | 2020-08-30 13:05 | NUR ---
Patient did seated B LE AROM exercises doing knee extension, hamstring curls, hip flexion, hip adduction, hip abduction, gluteal squeezes, and ankle AROM with use of gym ball for resistance for 10 reps x 3 sets with occasional verbal and tactile cuing to help decrease trick movements and fall risks. Patient also did log rolling bed mobility and sit to stand push off transfers (2 to 3 reps) with occasional verbal and tactile cuing with CGA to SBA x 1, decreasing trick movements and fall risks. Patient walked for 5 to 8 feet with CGA to SBA x 1 on level surfaces with slow swathi.
== END 2020-08-30 12:59 | DRG 292 ==
LOC: ED 10:51 → ED-I 14:14 → ED 14:29 → ICU 14:30
PROVIDERS: Nurse Practitioner; ADMIT Internal Medicine; ATTEND Internal Medicine
PROC: 02HV33Z Insertion of Infusion Device into Superior Vena Cava, Percutaneous Approach (ICD-10-PCS; 2020-08-26)
PROC: 0T9B70Z Drainage of Bladder with Drainage Device, Via Natural or Artificial Opening (ICD-10-PCS; principal; 2020-08-27)
DX: I11.0 Hypertensive heart disease with heart failure (principal); Z68.1 Body mass index [BMI] 19.9 or less, adult; I50.23 Acute on chronic systolic (congestive) heart failure; I25.10 Atherosclerotic heart disease of native coronary artery without angina pectoris; I48.0 Paroxysmal atrial fibrillation; E78.5 Hyperlipidemia, unspecified; D64.9 Anemia, unspecified; G40.909 Epilepsy, unspecified, not intractable, without status epilepticus; I25.5 Ischemic cardiomyopathy; E03.9 Hypothyroidism, unspecified; J44.9 Chronic obstructive pulmonary disease, unspecified; R63.6 Underweight; F17.210 Nicotine dependence, cigarettes, uncomplicated; N40.1 Benign prostatic hyperplasia with lower urinary tract symptoms; J98.4 Other disorders of lung; R33.8 Other retention of urine; T50.916A Underdosing of multiple unspecified drugs, medicaments and biological substances, initial encounter; Z91.128 Patient's intentional underdosing of medication regimen for other reason; Z86.73 Personal history of transient ischemic attack (TIA), and cerebral infarction without residual deficits; Z99.81 Dependence on supplemental oxygen; Z95.5 Presence of coronary angioplasty implant and graft; Z95.810 Presence of automatic (implantable) cardiac defibrillator; Z20.822 Contact with and (suspected) exposure to COVID-19
CPT/HCPCS: J1250

== ENCOUNTER 2020-09-02 20:35 | Observation (INO) | payer MEDICARE, MEDICAID ==
[~2020-09-02] VITALS: Ht 172.7 cm; Wt 54.0 kg
[~2020-09-02 20:35] MED LIST changes: +LEVOTHYROXIN25 MC1 PO; +SPIRONOLACT25 MG PO
--- NOTE | 2020-09-02 20:35 | NUR ---
PT TO ROOM VIA EMS FOR BEDSDIE TRIAGE.
--- NOTE | 2020-09-02 21:15 | NUR ---
PT RESTING NO SOB OR DISTRESS NOTED, COMFORT MEASURES PROVIDED, CALL VELEZ WITHIN REACH.
[2020-09-02 21:53] LABS: HEMATOCRIT 32.5 % (39.0-50.0); HEMOGLOBIN 10.4 g/dl (14.0-18.0); IMMATURE GRANULOCYTES 0.4 % (0.0-5.0); MEAN CELL VOLUME 101.2 fL CALC (80.0-100.0); MEAN CORPUSCULAR HGB 32.4 pG CALC (26.0-32.0); NEUT# 4.29 thou/uL (1.82-7.42); RED BLOOD COUNT 3.21 mill/uL (4.70-6.10); RED CELL DISTRI WIDTH 14.3 % (11.5-15.5)
[2020-09-02 22:15] LABS: ALBUMIN 4.1 g/dL (3.2-5.0); ALKALINE PHOSPHATASE 99 u/l (38-126); ANION GAP 16 (6-22 (CALC)); BILIRUBIN, TOTAL 2.8 mg/dL (0.0-1.4); BUN 34 mg/dL (8-23); BUN/CREATININE RATIO 27 (12-20 (CALC)); CARBON DIOXIDE 27 mmol/l (22-30); CHLORIDE 95 mmol/l (95-108); CREATININE 1.2 mg/dL (0.7-1.3); GFR 60 ML/MIN (>=60 (CALC)); GFR FOR AFR.AMER. > 60 ML/MIN (>=60 (CALC)); POTASSIUM 3.8 mmol/l (3.5-5.1); SGOT/AST 22 u/l (19-48); SODIUM 134 mmol/l (137-146); TOTAL PROTEIN 7.3 g/dL (6.3-8.2)
--- NOTE | 2020-09-02 22:15 | NUR ---
PT HAS A LEG SULLIVAN BAG THAT WAS PLACED DURING HIS RECENT ADMISSION, STATES HE WAS WAITING FOR HOSPITAL TO CALL HIM ABOUT THE FOLLOW UP. EDUCATED REGARDING THAT HE WILL NEED TO CALL AND HE RESPONDED THAT HE WAS NEVER TOLD THAT, PER D/C INSTRUCTIONS PRINTED FROM RECENT D/C ON 08/30/20 HE WAS.
--- NOTE | 2020-09-02 23:25 | NUR ---
SNACK PROVIDED TWICE PT STATES HE HAS HAD POOR APPEITIE BUT SUDDENLY IS VERY HUNGRY. WILL CONTINUE TO MONITOR.
--- NOTE | 2020-09-03 00:09 | NUR ---
PT CHANGED FROM LEG BAG TO LARGE VOLUME BAG AND LASIX ADMINISTERED ORDERED.
[2020-09-03 00:44] LABS: URINE BILIRUBIN - DIPSTICK NEGATIVE (NEGATIVE); URINE BLOOD DIPSTICK LARGE (NEGATIVE); URINE COLOR YELLOW; URINE GLUCOSE - DIPSTICK NEGATIVE (NEGATIVE); URINE KETONE NEGATIVE (NEGATIVE); URINE LEUK ESTERASE TRACE (NEGATIVE); URINE NITRITE - DIPSTICK NEGATIVE (Negative); URINE PH 5.5 (4.5-8.0); URINE PROTEIN - DIPSTICK NEGATIVE (NEG-TRACE)
[2020-09-03 00:45] LABS: URINE EPITHELIAL CELLS FEW EPI/hpf (0-FEW); URINE RBC 25-50 RBC/hpf (0-5)
[2020-09-03 00:46] LABS: URINE BACTERIA MODERATE hpf
--- NOTE | 2020-09-03 01:00 | NUR ---
PT STATES HE IS UNABLE TO REMEMBER ALL OF HIS MEDICATIONS AND UPON ATTEMPTING TO GO OVER HIS D/C MED REC FROM 3 DAYS AGO, PT STILL UNABLE TO VERIFY THEM.
--- NOTE | 2020-09-03 01:01 | NUR ---
PT AWARE OF PLANNED ADMISSION.
--- NOTE | 2020-09-03 01:39 | NUR ---
REPORT CALLED TO SANTOSH FELIPE ON MED SURG.
[2020-09-03 01:50] VITALS: BP 101/75
--- NOTE | 2020-09-03 01:50 | NUR ---
PATIENT ARRIVED ON UNIT AT 0150 VIA WHEELCHAIR. C/O SOB, PULSE OX 99% ON ROOM AIR. IV SALINE LOCKED. PEDAL EDEMA PRESENT. SULLIVAN PRESENT FROM RECENT ADMISSION. PACED ON TELE. ORIENTED TO ROOM, CALL LIGHT, AND BED. PLAN OF CARE DISCUSSED. PATIENT INFORMED TO CALL WITH ANY QUESTIONS OR CONCERNS.
--- NOTE | 2020-09-03 01:51 | NUR ---
PT TRANSPORTED TO MED SURG ON TELE VIA W/C, ALL BELONGINGS SENT WITH PT.
--- NOTE | 2020-09-03 04:08 | NUR ---
PATIENT STATES HE NEEDS O2, PULSE OX 98% ON ROOM AIR. FALL AND SAFTEY PRECAUTIONS IN PLACE. NO S/S OF DISTRESS NOTED.
--- NOTE | 2020-09-03 05:04 | NUR ---
C/O SOB AND NEEDING O2. PULSE OX READING 98% ON ROOM AIR. PATIENT EDUCATED ON THE FACT O2 WASN'T NESSASARY AT THIS TIME. PATIENT INSIST ON WEARING O2. PATIENT PLACED ON 0.5L OF O2 FOR COMFORT AT THIS TIME.
[2020-09-03 07:39] VITALS: BP 105/80
--- NOTE | 2020-09-03 07:39 | NUR ---
PT SITTING IN BED. A&O X3. PT CURRENTLY ROOM AIR SUSTAINING 96%, O2 @ AT BEDSIDE IF NEEDED. PT REPORTS EXERTIONAL SOB. CLEAR/DIMINISHED BREATH SOUNDS HEARD UPON AUSCULTATION. ACTIVE BOWEL SOUNDS X4 QUADRANTS. SULLIVAN CATHTER IN PLACE PRIOR TO LAST D/C 08/30/20. SULLIVAN CATHETER DRAINING VIA GRAVITY WITH CORY URINE NOTED. EDEMA NOTED TO LLE, PEDAL PULSES WEAK. NON SKID SOCKS APPLIED. PT DENIES ANY PAIN AT THIS TIME. FRONT LOADER RESIDENTIAL DRIVER IN PLACE. #20 [facility] EMS SITE HEALTHY AND PATENT, PT EDUCATED ON THE NEED TO CHANGE EMS SITE TO DECREASE RISK OF INFECTION. PT AGREEABLE. NO OTHER NEEDS AT THIS TIME. ASSESSMENT COMPLETED. DISCUSSED POC. CALL LIGHT WITHIN REACH.
--- NOTE | 2020-09-03 09:53 | NUR ---
DR OSULLIVAN AND Tammi ROMERO APRN AT BEDSIDE DISCUSSING POC
--- NOTE | 2020-09-03 10:59 | NUR ---
PT ASSISTED TO THE BSC. O2 APPLIED AT 1L VIA NS FOR EXERTIONAL SOB. PT TOLERATED ACTIVITY WELL. ASSISTED PT BACK INTO BED. CALL LIGHT LEFT WITHIN REACH.
--- NOTE | 2020-09-03 11:26 | NUR ---
PT SITTING IN BED WATCHING TV. NO NEEDS AT THIS TIME. CALL LIGHT WITHIN REACH.
[2020-09-03 11:37] VITALS: BP 109/82
--- NOTE | 2020-09-03 14:54 | NUR ---
PT REQUESTING TO GET A "SLEEPING PILL". PT INFORMED MEDICATION TO HELP HIM SLEEP IS GIVEN DURING NIGHT TIME HOURS. DR OSULLIVAN NOTIFIED, ORDER OBTAINED FOR SONATA 5MG PO QHS PRN FOR SLEEP. ORDER WRITTEN, VERIFIED AND FAXED TO PHARMACY.
[2020-09-03 16:23] VITALS: BP 105/75
--- NOTE | 2020-09-03 17:49 | NUR ---
EMS SITE REMOVED BY Jacinto SIU RN. INTACT UPON REMOVAL. #22 INITIATED TO RW, HEALTHY AND PATENT X3 ATTEMPTS. PT TOLERATED WELL. CALL LIGHT WITHIN REACH.
--- NOTE | 2020-09-03 18:03 | NUR ---
PT SITTING IN RECLINER WATCHING TV AND EATING DINNER. NO NEEDS AT THIS TIME. CALL LIGHT WITHIN REACH.
--- NOTE | 2020-09-03 19:14 | NUR ---
REPORT GIVEN BY JERICHO. PATIENT RESTING IN BED WATCHING TV. RESP EVEN AND UNLABORED, 1L O2 VIA NC. FALL AND SAFTEY PRECAUTIONS. NO S/S OF DISTRESS NOTED. IV SALINE LOCKED. PACED ON TELE. TRACE PEDAL EDEMA PRESENT. SULLIVAN IN FOR URINARY RETENTION. PLAN OF CARE DISCUSSED. PATIENT INFORMED TO CALL WITH ANY QUESTIONS OR CONCERNS.
[2020-09-03 19:50] VITALS: BP 154/86
--- NOTE | 2020-09-03 20:35 | NUR ---
PATIENT REQUESTING A SLEEPING PILL FOR BEDTIME. C/O TROUBLE BREATHING. PATIENT DOESN'T APPEAR TO BE IN DISTRESS. RT CALLED AND INFORMED OF PATIENT'S CONCERNS
[2020-09-03 21:40] VITALS: BP 117/79
--- NOTE | 2020-09-03 23:37 | NUR ---
C/O NOT BEING ABLE TO BREATH, 02 SAT 99% ON 1L VIA NC. PATIENT STATES HE CAN'T SLEEP BECAUSCE HE CAN'T BREATH. PATIENT GIVEN SLEEP MEDICATION PER MD ORDERS. THEN PATIENT REQUESTS ICE CREAM. NO S/S OF DISTRESS NOTED. PATIENT SITTING IN BEDSIDE RECLINER. FALL AND SAFTEY PRECAUTIONS IN PLACE.
[2020-09-04] VITALS: BP 114/78
[2020-09-04 04:00] VITALS: BP 105/70
--- NOTE | 2020-09-04 04:24 | NUR ---
PATIENT RESTING WITH EYES CLOSED. RESP EVEN AND UNLABORED. NO S/S OF DISTRESS NOTED. FALL AND SAFTEY PRECAUTIONS IN PLACE.
[2020-09-04 05:38] LABS: HEMATOCRIT 34.6 % (39.0-50.0); HEMOGLOBIN 11.1 g/dl (14.0-18.0); MEAN CELL VOLUME 100.3 fL CALC (80.0-100.0); MEAN CORPUSCULAR HGB 32.2 pG CALC (26.0-32.0); MEAN CORPUSCULAR HGB CONC 32.1 g/dL CAL (32.0-36.0); RED BLOOD COUNT 3.45 mill/uL (4.70-6.10); RED CELL DISTRI WIDTH 14.4 % (11.5-15.5)
[2020-09-04 05:48] LABS: ALBUMIN 3.6 g/dL (3.2-5.0); ALKALINE PHOSPHATASE 114 u/l (38-126); ANION GAP 13 (6-22 (CALC)); BILIRUBIN, TOTAL 2.5 mg/dL (0.0-1.4); BUN 33 mg/dL (8-23); BUN/CREATININE RATIO 31 (12-20 (CALC)); CARBON DIOXIDE 25 mmol/l (22-30); CHLORIDE 97 mmol/l (95-108); CREATININE 1.1 mg/dL (0.7-1.3); GFR > 60 ML/MIN (>=60 (CALC)); GFR FOR AFR.AMER. > 60 ML/MIN (>=60 (CALC)); POTASSIUM 3.8 mmol/l (3.5-5.1); SGOT/AST 19 u/l (19-48); SODIUM 131 mmol/l (137-146); TOTAL PROTEIN 6.7 g/dL (6.3-8.2)
[2020-09-04 07:35] VITALS: BP 101/80
--- NOTE | 2020-09-04 09:30 | NUR ---
PT ALERT, ORIENTED X 3. LUNGS CLEAR AND DECREASED, 1LPM NC. SATS REMAIN UPPER 90s EVEN PT STATES THAT HE FEELS SHORT OF BREATH.
[2020-09-04 10:07] VITALS: BP 101/74
--- NOTE | 2020-09-04 13:45 | NUR ---
PT REMAINS AT REST IN THE CHAIR AT BEDSIDE. PT CONTINUES WITH SHORTNESS OF BREATH, ALSO STATES THAT SOMETHING IS GOING ON WITH HIS HEART. DR OSULLIVAN AND ANDREA MADRID HAVE EVALUATED PT THIS MORNING AND ARE AWARE.
[2020-09-04 15:10] VITALS: BP 96/74
--- NOTE | 2020-09-04 17:37 | NUR ---
PT HAS BEEN RESTING IN THE BED THIS AFTERNOON, NO FURTHER STATEMENTS REGARDING SHORTNESS OF BREATH OR CHEST PAIN. PT CONTINUES TO WISH FOR 3-4 HOURS OF DEEP SLEEP, WHICH HAS ELUDED HIM TO THIS POINT.
[2020-09-04 19:51] VITALS: BP 100/64
--- NOTE | 2020-09-04 20:00 | NUR ---
RECEIVED REPORT FROM NURSE GAN, PATIENT ALERT ORIENTED, RESTLESS, STATED WANTED TO WALK IN THE HALLWAY. BEEN IN BED FOR 2 DAYS, AND CANT SLEEP. ASSESSMENT PERFORMED, NOTED TO HAVE SALINE LOCK ON RT WRIST G22 PATENT FLUSHES WELL, ON TELEMETRY PACED 102. LBM 09/03, HOOKED TO O2 @ 1LPM VIA NC, BREATHING SHALLOW, EXERTINAL DYSPNEA NOTED, WITH INDWELLING SULLIVAN CATHETER DRAINING COYR COLORED URINE, ADMIN PROG COORD ASSISTED PATIENT TO WALKED IN THE HALLWAY AND ASSISTED BACK IN BED.
--- NOTE | 2020-09-04 23:30 | NUR ---
PATIENT C/O MILD PAIN ON JAW AREA, AND STATED EASING OFF OFFERED ICE CREAM ACCEPTED.
[2020-09-05] VITALS (8 sets, daily range): BP systolic 96–118; BP diastolic 68–79
--- NOTE | 2020-09-05 00:14 | NUR ---
PATIENT APPEARS TO BE RESTING WITH EYES CLOSED, REMAINS ON O2 2 1LPM VIA NC, BREATHING SHALLOW, UNLABORED CALL LIGHT AT [facility].
--- NOTE | 2020-09-05 03:47 | NUR ---
PATIENT RESTING IN BED, EYES CLOSED, REMAINS ON O2 @ 1LPM VIA NC, BREATHING UNLABORED, CALL LIGHT AT REACH.
--- NOTE | 2020-09-05 07:00 | NUR ---
RECIEVED REPORT FROM MATTEO RAMON
--- NOTE | 2020-09-05 07:27 | NUR ---
PT SLEEPING UPON ENTERING ROOM. PT AWAKENS TO SPEECH. PT IS A/OX3. ASSESSMENT AND VITALS COMPLETED. BP 110/79, HR 91, O2 99% ON 1L NC. PT STATES HE DOES WEAR 2L AT HOME. RESPIRATIONS ARE EVEN AND UNLABORED. LUNG SOUNDS ARE DIMINISHED.BOWEL SOUNDS ARE ACTIVE.RADIAL PULSES STRONG. PEDAL PULSES WEAK. #22G IN RW FLUSHED, SITE APPEARS HEALTHY AND PATENT. SKIN INTACT. PT DENIES OF ANY PAIN AT THIS TIME. SULLIVAN CATHATER IN PLACE.TUBING PATENT.650 CORY URINE NOTED. PT DENIES OF ANY NEEDS ATTHIS TIME.ALL SAFETY PRECAUTIONS ARE IN PLACE WITH CALL LIGHT IN REACH.WILL CONTINUE TO MONITOR.
--- NOTE | 2020-09-05 10:04 | NUR ---
DR OSULLIVAN AT BEDSIDE
--- NOTE | 2020-09-05 11:59 | NUR ---
COMMUNITY MARKETING MANAGER ASSSISTED PT BACK INTO BED. MODERATE LOOSE BM NOTED.TELE MONITORING IN PLACE. SULLIVAN CATHATER IN PLACE, TUBING PATENT. #22G IN RW REMAINS IN PLACE.RESPIRATIONS ARE EVEN AND UNLABORED ON 1L NC. PT DENIES OF ANY PAINS OR DISCOMFORTS AT THIS TIME.ALL SAFETY PRECAUTIONS ARE IN PLACE WITH CALL LIGHT IN REACH. WILL CONTINUE TO MONITOR.
--- NOTE | 2020-09-05 14:34 | NUR ---
URINE OBTAINED.SENT TO LAB
--- NOTE | 2020-09-05 15:39 | NUR ---
PT SITTING UP IN RECYLINER WATCHING TV. RESPIRATIONS ARE EVEN AND UNLABORED WITH NO DISTRESS NOTED. #22G IN RW REMAINS HEALTHY AND PATENT. SULLIVAN CATHATER IN PLACE, TUBING PATENT. TELE MONITORING IN PLACE.PT DENIES OF ANY PAINS OR DISCOMFORTS AT THIS TIME.ALL SAFETY PRECAUTIONS ARE IN PLACE WITH CALL LIGHT IN REACH.WILL CONTINUE TO MONITOR.
[2020-09-05 15:45] LABS: URINE BILIRUBIN - DIPSTICK NEGATIVE (NEGATIVE); URINE BLOOD DIPSTICK LARGE (NEGATIVE); URINE COLOR YELLOW; URINE GLUCOSE - DIPSTICK NEGATIVE (NEGATIVE); URINE KETONE NEGATIVE (NEGATIVE); URINE PROTEIN - DIPSTICK 100 mg/dL (NEG-TRACE); URINE SPECIFIC GRAVITY 1.025
[2020-09-05 15:54] LABS: URINE NITRITE - DIPSTICK POSITIVE (Negative)
[2020-09-05 15:55] LABS: URINE LEUK ESTERASE MODERATE (NEGATIVE)
--- NOTE | 2020-09-05 16:33 | NUR ---
PT CALLS COMPLAINING OF " HAVING TROUBLE BREATHING." UPON ENTRING ROOM. REPSIRATIONS ARE EVEN AND UNLABORED. O2 SAT 100% ON 1L NC. PRN ALBUTEROL INHALER ADMINISTERED. PT STATES " THAT FEELS BETTER." REPIRATIONS REMAINS EVEN AND UNLABORED WITH NO DISTRESS. PT EDUCATED IN NOTIFING SHIRT MARKER IF WORSENS. PT VERBLAIZED UNDERSTANDING. ALL SAFETY PRECAUTIONS ARE IN PLACE. WILL CONTINUE TO MONITOR.
--- NOTE | 2020-09-05 18:06 | NUR ---
PT C/O OF FEELING "MORE SOB WHEN DOING THINGS." O2 96% ON 1L NC. RESPIRATIONS ARE EVEN AND UNLABORED WITH NO DISTRSS.BATCH MAKER EDUCATED PT ON NOT MOVING SO FAST AND BREATHING TECHNIQUES.O2 INCREASED TO 2L NC. PT VERBALIZED UNDERSTANDING. BATCH MAKER INSTRUCTETED PT TO CALL IF WORSENS.
--- NOTE | 2020-09-05 19:58 | NUR ---
PATIENT RESTING IN BED AT THIS TIME WITH HOB ELEVATED AND O2 OFF-O2 SAT AT THIS TIME IS 100%-BUT PATIENT STILL IS COMPLAINING OF FEELING SOB. LUNGS ARE CLEAR. TELE MONITOR IN PLACE AND SHOWING PACED RHYTHM AT THIS TIME. SULLIVAN PATENT AND DRAINING CLOUDY CORY URINE. SALINE LOCK TO RIGHT WRIST INTACT. PATIENT WITH MANY CONCERNS REGUARDING HIS CURRENT HEALTH CONDITION AND FOLLOW UP CARE. HAS CONCERNS ABOUT SEEING PROJECT DEVELOPMENT MANAGER, UROLOGIST, REHAB AND HOW HE CAN GET TO APPTS WELL REHAB. ALSO WITH MANY CONCERNS AT HOME-INCLUDING HIS AND HER HEALTH PROBLEMS. NO TRANSPORTATION TO GET TO ANY APPTS. WILL PLACE CASE MANAGEMENT CONSULT TO HELP WITH THESE ARRANGEMENTS. SAFETY PRECAUTIONS REINFORCED. CALL LIGHT IN REACH. WILL CONT TO [facility].
--- NOTE | 2020-09-05 21:29 | NUR ---
PATIENT ASSISTED TO WALK TO THE END OF THE 270'S RAENAS WITH ASSIST OF SHUBHAM AGUILAR. O2 VIA NASAL CANNULA IN PLACE. TELE MONITOR IN PLACE. PATIENT SITTING ON CHAIR TO REST AT THE END OF THE ARENAS. PATIENT FOUND IN FRONT OF THE CHAIR WITH O2 OFF. PATIENT ASSISTED OFF THE FLOOR AND INTO WHEELCHAIR. O2 REAPPLIED AT 2LPM. PATIENT ASSISTED BACK TO THE BED. VS TAKEN-96/74, HR-107, O2 SAT IS 100% AT THIS TIME. RESTING IN BED AT THIS TIME-WILL CONT TO MONITOR.
--- NOTE | 2020-09-05 22:35 | NUR ---
PATIENT RESTING IN BED AT THIS TIME-AROUSABLE. O2 VIA NASAL CANNULA IN PLACE WITH O2 SAT 99%. VS TAKEN AND RECORDED. BP-100/72, HR-114. TELE MONITOR IN PLACE. SALINE LOCK TO RIGHT WRIST INTACT. SULLIVAN PATENT AND DRAINING CLOUDY CORY U RINE. SULLIVAN CATH CARE WAS GIVEN WITH SOAP AND H20. SAFETY PRECAUTIONS REINFORCED. CALL LIGHT IN REACH. WILL CONT TO MONITOR.
[2020-09-06] VITALS (7 sets, daily range): BP systolic 94–101; BP diastolic 59–79
--- NOTE | 2020-09-06 00:31 | NUR ---
PATIENT RESTING IN BED-STILL VERY CONCERNED ABOUT SEEING CARDIOLOGY-WANTS TO BE SEEN TONIGHT. EXPLAINED TO THE PATIENT THAT HE WILL SEE CARDIOLOGY LATER TODAY ACCORDING TO MD NOTE FROM YESTERDAY. O2 VIA NASAL CANNULA INPLACE. TELE MONITOR IN PLACE-LAST READING WAS PACED 103, SAFETY PRECAUTIONS REINFORCED. CALL LIGHT IN REACH. WILL CONT TO MONITOR.
--- NOTE | 2020-09-06 02:45 | NUR ---
PATIENT SITTING IN HIGH FOWLERS POSITION WITH O2 VIA NASAL CANNULA IN PLACE AT 1LPM. EYES ARE CLOSED. RESPS ARE EVEN AND UNLABORED AT THIS TIME. SULLIVAN PATENT AND DRAINING CLOUDY CORY URINE. TELE MONITOR IN PLACE. CALL LIGHT IN REACH. WILL CONT TO MONITOR.
--- NOTE | 2020-09-06 05:13 | NUR ---
PATIENT RESTING IN BED-DID SLEEP FOR APPROX 3-4HOURS. SITTING UP IN BED IN HIGH FOWLERS POSITION. SULLIVAN PATENT AND DRAINING CORY URINE. TELE MONITOR IN PLACE AND LAST READING WAS PACED 94. SALINE LOCK TO RIGHT WRIST IN PLACE. SAFETY PRECAUTIONS REINFORCED. CALL LIGHT IN REACH. WILL CONT TO MONITOR.
[2020-09-06 07:04] LABS: ANION GAP 11 (6-22 (CALC)); BUN 35 mg/dL (8-23); BUN/CREATININE RATIO 41 (12-20 (CALC)); CARBON DIOXIDE 27 mmol/l (22-30); CHLORIDE 97 mmol/l (95-108); CREATININE 0.8 mg/dL (0.7-1.3); GFR > 60 ML/MIN (>=60 (CALC)); GFR FOR AFR.AMER. > 60 ML/MIN (>=60 (CALC)); POTASSIUM 3.4 mmol/l (3.5-5.1); SODIUM 131 mmol/l (137-146)
--- NOTE | 2020-09-06 07:50 | NUR ---
ASSESSMENT IS COMPELTED; IV SITE IS FREE FROM REDNESS OR EDEMA. HR IS REG,PULSES ARE STRONG X4, ABD IS SOFT WITH ACTIVE BS., BREATH SOUNDS ARE DIMINISHED. O2 @ 1LITERS WITH NC, TELE MONITOR IN PLACE. SULLIVAN DRIANING YELLOW URINE.
--- NOTE | 2020-09-06 11:46 | NUR ---
Patient did B LE seated AROM exercises doing knee extension, hamstring curls, hip flexion, gluteal squeezes, hip adduction and abduction, hip external and internal rotation, and ankle exercises for 10 reps x 2 sets with patient very sluggish with constant verbal and tactile cuing to help decrease trick movements and fall risks. Patient walked short distance (about 10 to 15 steps from bed to commode and bed to recliner with Min a x 1 using the RW) with constant verbal and tactile cuing to help decrease fall risks. Patient struggled with log rolling bed mobility and sit to stand push off transfers, needing min A x 1 with multiple attempts to finish task (3 to 5 reps) with constant verbal and tactile cuing to help decrease fall risks.
--- NOTE | 2020-09-06 12:30 | NUR ---
PT IS RELAXING IN THE CHAIR, WITH NO DISTRESS NOTED. IV SITE IS FREE FROM REDNESS OR EDEMA.
--- NOTE | 2020-09-06 16:15 | NUR ---
PT IS SITTING IN THE CHAIR. NO DISTRESS NOTED. IV SITE IS FREE FROM REDNESS OR EDEMA.
--- NOTE | 2020-09-06 20:00 | NUR ---
PATIENT RESTING IN BED AT THIS TIME WITH O2 VIA NASAL CANNULA IN PLACE. O2 SAT IS 100% AT THIS TIME. PATIENT IS AWAKE ALERT AND WITH MANY COMPLAINTS. SULLIVAN CATH PATENT AND DRAINING CLOUDY CORY URINE. SALINE LOCK TO RIGHT WRIST INTACT. TELE MONITOR IN PLACE AND READING PACED 94. PATIENT WITH NUMEROUS COMPLAINTS-STARTED LIST FOR PATIENT WITH QUESTIONS THAT HE HAS FOR THE DOCTOR WHEN HE SEES THEM TOMMORROW. SAFETY PRECAUTIONS REINFORCED. CALL LIGHT IN REACH. WILL CONT TO MONITOR.
--- NOTE | 2020-09-06 23:30 | NUR ---
PATIENT INSISTING THAT HE GET OOB TO THE RECLINER. PATIENT IS EXTREMELY WEAK AND SLOW IN GETIING TO THE CHAIR WITH ASSIST OF WLKER AND STAFF. PATIENT SOB EVEN AT REST. O2 VIA NASAL CANNULA APPLIED AT 1LPM. O2 SAT IS 100%. PATIENT WANT TO BEND OVER WITH HIS HEAD BETWEEN HIS LEGS. PATIENT INSTRUCTED THAT HE WITH HAVE TO SIT IN RECLINER WITH HIS LEGS ELEVATED AT THIS TIME. PATIENT WITH MULTIPLE COMPLAINTS-BEEN HERE TOO LONG. NEED TO SEE CARDIOLOGY. NEEDS TO GET OUT OF THIS ROOM. ATTEMPT TO CALM PATIENT WITH LITTLE RELIEF. SAFETY PRECAUTIONS REINFORCED. CALL LIGHT IN REACH. WILL CONT TO MONITOR.
--- NOTE | 2020-09-07 01:15 | NUR ---
PATIENT SITTING UP ION THE RECLINER-CONT TO BE RESTLESS. CONT TO C/O NOT BEING ABLE TO BREATH EVEN THOUGH HIS O2 SATS ARE 98-100% AT THIS TIME. MEDICATED WITH XANAX 0.5MG PO FOR HIGH ANXIETY. SAFETY PRECAUTIONS REINFORCED. CALL LIGHT IN REACH. WILL CONT TO MONITOR.
[2020-09-07 04:00] VITALS: BP 109/68
--- NOTE | 2020-09-07 05:04 | NUR ---
PATIENT SITTING IN RECLINER AT THIS TIME WITH O2 VIA NASAL CANNULA IN PLACE AT 1LPM. EYES ARE CLOSED. AND RESPS ARE REGULAR. TELE MONITOR IN PLACE. LAST READING WAS PACED AT 103. SULLIVAN PATENT AND DRAINING CLOUDY CORY URINE. SALINE LOCK TO RIGHT WRIST INTACT. CALL LIGHT IN REACH. WILL CONT TO MONITOR.
[2020-09-07 06:24] LABS: HEMATOCRIT 35.6 % (39.0-50.0); HEMOGLOBIN 11.1 g/dl (14.0-18.0); MEAN CELL VOLUME 103.5 fL CALC (80.0-100.0); MEAN CORPUSCULAR HGB 32.3 pG CALC (26.0-32.0); MEAN CORPUSCULAR HGB CONC 31.2 g/dL CAL (32.0-36.0); RED BLOOD COUNT 3.44 mill/uL (4.70-6.10); RED CELL DISTRI WIDTH 14.8 % (11.5-15.5)
[2020-09-07 06:55] LABS: ANION GAP 19 (6-22 (CALC)); BUN 39 mg/dL (8-23); BUN/CREATININE RATIO 33 (12-20 (CALC)); CARBON DIOXIDE 23 mmol/l (22-30); CHLORIDE 96 mmol/l (95-108); CREATININE 1.2 mg/dL (0.7-1.3); GFR 60 ML/MIN (>=60 (CALC)); GFR FOR AFR.AMER. > 60 ML/MIN (>=60 (CALC)); SODIUM 133 mmol/l (137-146)
[2020-09-07 06:58] LABS: POTASSIUM 4.8 mmol/l (3.5-5.1)
--- NOTE | 2020-09-07 07:00 | NUR ---
RECIEVED REPORT FROM MATTEO ELLIS
[2020-09-07 08:11] VITALS: BP 100/72
--- NOTE | 2020-09-07 08:11 | NUR ---
PT SLEEPING IN SEMI FOWLERS POSITION. PT AWAKENS TO SPEECH. PT IS A/O X3. ASSESSMENT AND VITALS COMLETED. BP 100/72, HR 104, O2 100% ON 2L NC. REPSIRATIONS ARE SHALLOW.LUNG SOUNDS ARE CLEAR. HEART RHYTHM IS IRREGULARM PACED PER ER MONITORING. BOWEL SOUNDS ARE ACTIVE. #22G IN RW FLUSHED, SITE APPEARS HEALTHY AND PATENT.PEDAL PULSES WEAK. SKIN INATCT. PT STATES THAT HE WANTS TO BE TRANSFERED TO [facility]. " THE LAT TIME I WENT TO SEE MICHAELA, HE GAVE ME A PAPER TO BE TRANSFERED TO [facility]." CRISTIAN,ANRP NOTIFIED. PT DENIES OF ANY PAINS OR DISCOMFORTS AT THIS TIME. PT ASSISTED WITH SETTING UP BREAKFAST TRAY. ALL SAFETY PRECAUTIONS ARE IN PLACE. WILL CONTINUE TO MONITOR,
--- NOTE | 2020-09-07 09:07 | NUR ---
#22G IN RFA STARTED, SITE REMAINS HEALTHY AND PATENT. #22G IN RW REMOVED DUE TO PT STATING IT IS UNCOMFORTABLE. CATAHTER STILL INTACT.
[2020-09-07 10:25] VITALS: BP 98/75
--- NOTE | 2020-09-07 11:15 | NUR ---
PHYSCIAL THERAPY AT BEDSIDE
--- NOTE | 2020-09-07 11:38 | NUR ---
PT SITTING UP IN [place]YLINER WATCHING TV. RESPIRATIONS ARE LABORED ON 2L NC. O2 SAT REMAINS 100%. #22G IN RFA REMAINS HEALTHY AND PATENT. SULLIVAN CATHATER IN PLACE, TUBING PATENT. PT DENIES OF ANY NEEDS AT THIS TIME. ALL SAFETY PRECAUTIONS ARE IN PLACE WITH CALL LIGHT IN REACH. WILL CONTINUE TO MONITOR.
[2020-09-07 14:59] VITALS: BP 102/71
--- NOTE | 2020-09-07 16:34 | NUR ---
PT SLEEPING IN SEMI FOWLERS POSITION. PT AWAKENS TO SPEECH. PT COMPLAINS OF BEING REALLY TIRED. RESIRATIONS ARE LABORED ON 2L NC. TELE MONITORING IN PLACE. NATE MCGRATH IN PLACEM, TUBING PATENT. 450 CORY URINE NOTED. PT DENIES OF ANY NEEDS AT THIS TIME. ALL SAFETY PRECAUTIONS ARE IN PLACE WITH CALL LIGHT IN REACH. WILL CONTINUE TO MONITOR.
--- NOTE | 2020-09-07 17:09 | NUR ---
ER CALLED TO OBTAIN NUMBER FOR [employer] AICD TO INTERROGATE PACEMAKER. SENIOR [employer] WE[employer] APPLICATION DEVELOPER TO RECIEVE CALL BACK
--- NOTE | 2020-09-07 17:40 | NUR ---
CALL RECIEVED BACK FROM ER. NUMBER FOR [employer] AICD COULD NOT BE FOUND. GUILHERME ENVIRONMENTAL HEALTH PHYSICIAN NOTIFIED. POWER SUPERINTENDENT INFORMED THAT IT WAS DOWN IN ER. TO BE BROUGHT UP FROM ER BY GUILHERME ENVIRONMENTAL HEALTH PHYSICIAN.
--- NOTE | 2020-09-07 18:29 | NUR ---
NOTIFIED BY [facility] COORDIN[facility] THAT [employer] INTERROGATOR COULD NOT BE LOCATED. RECREATION ASSISTANT INFORMED THAT [facility] WAS CONTACT. [facility] COORDINATOR TO CALL THIS RECREATION ASSISTANT BACK IF FINDING INTERROATOR OR WOULD BE PASSED ON TO CORPORATE SECRETARY. TO BE PASSED ON TO NIGHT NURSE.
--- NOTE | 2020-09-07 18:49 | NUR ---
MARIAM CONTACT AT [employer] TO INTERROGATE PACEMAKER. AUTOMAT CAR ATTENDANT TO EXPECT A CALL IN 20-40 MIN FOR ETA.
[2020-09-07 19:00] VITALS: BP 99/64
--- NOTE | 2020-09-07 19:04 | NUR ---
Patient did seated B LE exercises doing knee extension, hamstring curls, hip flexion, hip adduction, hip abduction, hip external and internal rotation, gluteal squeezes, and ankle AROM exercises for 15 reps x 1 sets with decreased endurance and patient needing 2 minute rest increments for 4 reps. Patient did sit to stand push off and bed mobility log rolling technique for 2 reps for transfer ADLs with patient requiring Mod A x 1 from therpaist to help finish task. Patient also walked approximately 4 steps forward and back isidro in the room with Mod A x 1 with use of RW, with occasional lateral swaying due to weakness.
--- NOTE | 2020-09-07 19:15 | NUR ---
ASPEN FROM [employer] CALLED TO CONFIRM THAT SOMEONE FROM HIS COMPANY WILL BE HERE TO INTERROGATE HIS PACER 09/08/20 AROUND MIDDAY.
--- NOTE | 2020-09-07 19:55 | NUR ---
SCHEDULED MEDICATIONS AND PRN MEDICATION ADMINISTERED, SEE E-MAR. PT DENIES REQUESTS ICE CREAM. PLAN OF CARE REVIEWED, PT DENIES QUESTIONS, VERBALIZES UNDERSTANDING. ITEMS WITHIN REACH, BED LOCKED IN LOW POSITION W/ BEDRAILS UP X2. CALL VELEZ WITHIN REACH, AGREES TO CALL PRN.
[2020-09-07 20:30] VITALS: BP 116/77
--- NOTE | 2020-09-07 22:11 | NUR ---
PT C/O OF RACING HEART RATE. VIRALS TAKEN. VERIFICATION WITH ED ELECTRIC METER TESTER SHOP. HR IS 114. WILL CONTINUE TO MONITOR.
[2020-09-08] VITALS: BP 83/68
--- NOTE | 2020-09-08 00:17 | NUR ---
PT LAYING IN BED WITH EYES CLOSED, APPEARS TO BE SLEEPING, APPEARS COMFORTABLE AND IN NO DISTRESS. ITEMS REMAIN WITHIN REACH, CALL VELEZ REMAINS WITHIN REACH. BED REMAINS LOCKED AND IN LOW POSITION WITH BEDRAILS UP X2. WILL CONTINUE TO MONITOR.
[2020-09-08 04:00] VITALS: BP 93/62
--- NOTE | 2020-09-08 04:00 | NUR ---
PT RESTING IN BED, NO SIGNS OF DISTRESS NOTED, PT VOICES NO NEEDS OR COMPLAINTS AT THIS TIME. CALL LIGHT IN REACH, CONTINUE TO MONITOR.
[2020-09-08 06:38] LABS: ANION GAP 13 (6-22 (CALC)); BUN 49 mg/dL (8-23); BUN/CREATININE RATIO 40 (12-20 (CALC)); CARBON DIOXIDE 26 mmol/l (22-30); CHLORIDE 97 mmol/l (95-108); CREATININE 1.2 mg/dL (0.7-1.3); GFR 60 ML/MIN (>=60 (CALC)); GFR FOR AFR.AMER. > 60 ML/MIN (>=60 (CALC)); POTASSIUM 4.1 mmol/l (3.5-5.1); SODIUM 132 mmol/l (137-146)
--- NOTE | 2020-09-08 07:00 | NUR ---
RECIEVED REPORT FROM MATTEO PEARCE.
[2020-09-08 07:52] VITALS: BP 94/72
--- NOTE | 2020-09-08 07:52 | NUR ---
PT WATCHING TV IN SEMI FOWLERS POSITION. PT IS A/ X3 AND LOOKS VERY TIRED. ASSESSMENT AND VITALS COMPLETED. BP 94/72, HR 93, O2 100% ON 2L NC. REPSIRATIONS ARE SHALLOW. LUNG SOUNDS ARE CLEAR. HEART RHYTHM IS IRREGULAR.TELE MONITORING IN PLACE. BOWEL SOUNDS ARE ACTIVE. PT REPORTED HAVING BM 09/07/20 IN THE AFTERNOON. SKIN INTACT. #22G IN RAC FLUSHED SITE APPEARS HEALTHY AND PATENT. PT C/O OF BEING VERY TIRE AND WEAK. PT INSTRUCTED TO CALL FOR ASSISTANCE WHEN NEEDING ANYTHING. PT VERBLAIZED UNDERSTANDING. ALL SAFETY PRECAUTIONS ARE IN PLACE WITH CALL LIGHT IN REACH. WILL CONTINUE TO MONITOR.
--- NOTE | 2020-09-08 09:20 | NUR ---
DR OSULLIVAN AT BEDSIDE
[2020-09-08 10:35] VITALS: BP 101/77
--- NOTE | 2020-09-08 12:01 | NUR ---
HOSPICE NURSE AT BEDSIDE
--- NOTE | 2020-09-08 12:48 | NUR ---
PT RESTING IN SEMI FOWLERS POSITION. REPSIRATIONS ARE LABORED ON 2L NC. HOSPICE NURSE AT BEDSIDE. PT REQUESTING TO GET OUT OF BED AND WALK. HAND SIGN WRITER EDUCTAED PT ON NEED TO STAY IN BED DUE TO UNABLE TO BREATH EFFICIENTLY. WHEN ASKED IF HE NEEDS ANYTHING. PT STATES " I NEED SOMEONE TO GIVE ME A PILL TO PUT ME TO SLEEP FOREVER." ALL SAFETY PRECAUTIONS ARE IN PLACE WITH CALL LIGHT IN REACH. ALL SAFETY PRECAUTIONS ARE IN PLACE WITH CALL LIGHT IN REACH. WILL CONTINUE TO MONITOR.
--- NOTE | 2020-09-08 13:02 | NUR ---
PT STATING HE WANTS TO GET UP INTO CHAIR. THREE KNIFE TRIMMER AND HOSPICE NURSE ASSISTED. PT ABULATED SLOWLY. UPON RESTING IN PT LIPS PER BLUE. RESPIRATIONS SHALOW.THREE KNIFE TRIMMER INFORMED PT THAT THIS WAS THE REASON WE WERE INFORCING BEDREST. SAFTEY PRECAUTIONS IN PLACE. WILL CONTINUE TO MONITOR.
--- NOTE | 2020-09-08 13:56 | NUR ---
PT IN AGREEANCE TO GO TO [facility]. ORDER FOR COVID PCR PLACED.
[2020-09-08] MEDS ORDERED: MIDODRINE5 MG PO (14:01)
[2020-09-08] MEDS ORDERED: CEPHALEXIN500 MG PO (14:01)
--- NOTE | 2020-09-08 14:17 | NUR ---
COVID SWAB COLLECTED. PT TOLERATED WELL.
[2020-09-08 14:40] VITALS: BP 91/71
--- NOTE | 2020-09-08 14:51 | NUR ---
PT RESTING IN RECYLINER. RESPIRATIONS ARE SHALLOW. LIPS HAVE RETURNED BACK TO PINK COLOR. PT DENIES OF ANY PAINS OR DISCOMFORTS. PT ASKING TO GET TO HOSPICE HOUSE SOON A POSSIBLE. ALL SAFETY PRECAUTIONS ARE IN PLACE WITH CALL LIGHT IN REACH. WILL CONTINUE TO MONITOR.
--- NOTE | 2020-09-08 16:06 | NUR ---
PT SITTING UP IN RECYLINER WATCHING TV. RESPIRATIONS ARE LABORED. #22G IN RFA REMAINS IN PLACE. [place] CATHATER IN PLACE, TUBING PATENT. TELE MONITORING IN PLACE. PT DENIES OF ANY PAINS OR DISCOMFORTS AT THIS TIME. ALL SAFETY PRECAUTIONS ARE IN PLACE WITH CALL LIGHT IN REACH. WILL CONTINUE TO MONITOR.
--- NOTE | 2020-09-08 16:46 | NUR ---
PT BROTHER VALERIO CALLED ASKING FOR INFORMATION ON PT. [facility] PROVIDED WITH PT PERMISSION. BROTHER INFORMED THAT PT IS TO BE DC TO HOSPICE HOUSE AROUND 1700. BROTHER INFORMED OF PT CONDITION.
--- NOTE | 2020-09-08 17:13 | NUR ---
PT EDUCATED ON DC INSTRUCTIONS AND NEW MEDICATIONS THAT SON IS TO TAKE TO HOSPICE HOUSE. PT VERBALIZED UNDERSTANDING. #22G IN RFA IN PLACE. SULL[place] CATHATER IN PLACE, TUBING PATENT. PT DENIES OF ANY QUESTIONS AT THIS TIME. ALL SAFETY PRECAUTIONS ARE IN PLACE. WILL CONTINUE TO MONITOR.
--- NOTE | 2020-09-08 17:15 | NUR ---
Discharge instructions given. Patient verbalizes understanding of same. Discharged in poor condition via Medical Transport to *Other with staff. All belongings sent with pt. PT DC TO [facility]. #22G IN [facility] AND [place] CATHATER REMAINS IN PLACE. TELE MONITORING REMOVED. ER NOTIFIED. PT SLIGHTLY EMOTIIONAL AT THIS TIME. PT TO TRANSPORTED [facility] VIA [facility]. ALL BELONGINGS DC WITH PT.
== END 2020-09-08 17:24 | disposition hospice, inpatient (51) ==
LOC: ED 20:35 → ED-I 23:42 → ED 09-03 00:15 → MS2 09-03 00:16
PROVIDERS: Emergency Medicine; Nurse Practitioner; Nurse Practitioner Family; ADMIT Internal Medicine; ATTEND Internal Medicine
DX: I11.0 Hypertensive heart disease with heart failure (principal); I50.43 Acute on chronic combined systolic (congestive) and diastolic (congestive) heart failure; I25.10 Atherosclerotic heart disease of native coronary artery without angina pectoris; I25.5 Ischemic cardiomyopathy; J44.9 Chronic obstructive pulmonary disease, unspecified; I48.19 Other persistent atrial fibrillation; I47.2 Ventricular tachycardia; E78.5 Hyperlipidemia, unspecified; E03.9 Hypothyroidism, unspecified; G40.909 Epilepsy, unspecified, not intractable, without status epilepticus; R63.6 Underweight; R33.8 Other retention of urine; N40.1 Benign prostatic hyperplasia with lower urinary tract symptoms; Z68.1 Body mass index [BMI] 19.9 or less, adult; N39.0 Urinary tract infection, site not specified; F17.200 Nicotine dependence, unspecified, uncomplicated; T50.916A Underdosing of multiple unspecified drugs, medicaments and biological substances, initial encounter; T41.5X6A Underdosing of therapeutic gases, initial encounter; B95.8 Unspecified staphylococcus as the cause of diseases classified elsewhere; Z51.5 Encounter for palliative care; Z91.128 Patient's intentional underdosing of medication regimen for other reason; Z95.5 Presence of coronary angioplasty implant and graft; Z86.73 Personal history of transient ischemic attack (TIA), and cerebral infarction without residual deficits; Z95.810 Presence of automatic (implantable) cardiac defibrillator; Z79.01 Long term (current) use of anticoagulants; Z96.0 Presence of urogenital implants; Z20.822 Contact with and (suspected) exposure to COVID-19
CPT/HCPCS: G0378